=== PATIENT | female | born 1960 | race Caucasian/White ===

== ENCOUNTER 2020-09-11 15:19 | Inpatient (IN) | payer OTHER, SELFPAY ==
[2020-09-11 15:24] VITALS: BP 189/80; PULSE 95; RESP 18; TEMP 36.9; O2SAT 97; BMI 31.6
--- NOTE | 2020-09-11 18:58 | ECG_ITS ---
Test Reason : MED CLERANCES Blood Pressure : / mmHG Vent. Rate : 085 BPM Atrial Rate : 085 BPM P-R Int : 190 ms QRS Dur : 082 ms QT Int : 398 ms P-R-T Axes : 070 044 061 degrees QTc Int : 473 ms Normal sinus rhythm Possible Left atrial enlargement Borderline ECG No previous ECGs available Referred By: Evelyn Ocampo Electronically Signed By:RO FRANK
--- NOTE | 2020-09-11 19:04 | ED_ITS ---
HPI - Psych General Chief Complaint: Psychiatric Symptoms Stated Complaint: crisis Time Seen by Provider: 09/11/20 18:38 Source: patient and family Mode of arrival: ambulatory Limitations: language barrier (tristanian speaking ) History of Present Illness HPI Narrative: 60 yo female with past medical history of NIDDM, HTN, bipolar disorder here with complaints of change in behavior, more labile moods, intermittently medication compliant. Daughter who is at bedside and interpreting tells me increased stressors at home and typically this triggers a bipolar episode for the patient. No substance use. No physical complaints. Related Data Home Medications Medication Instructions Recorded Confirmed divalproex 1 tab PO TID 09/11/20 09/11/20 metoprolol tartrate 50 mg PO BID 09/11/20 09/11/20 valsartan 320 mg PO DAILY 09/11/20 09/11/20 Allergies Allergy/AdvReac Type Severity Reaction Status Date / Time No Known Allergies Allergy Unverified 12/13/19 18:58 [No Known Allergies*] Review of Systems Review of Systems: Yes all other systems are reviewed and are negative Constitutional: Constitutional: Reports no additional constitutional complaints, Denies body ache(s), Denies chills, Denies fever(s), Denies headache(s) and Denies weakness Eyes: Eyes: Reports no additional eye complaints and Denies change in vision ENT: Reports system reviewed and no additional complaints, except as documented, Denies dizziness, Denies headache(s), Denies nasal congestion, Den ies nasal discharge and Denies neck pain Cardiovascular: Cardiovascular: Reports no additional cardiovascular complaints, Denies chest pain, Denies leg edema and Denies dyspnea Respiratory: Respiratory: Reports no additional respiratory complaints, Denies cough and Denies dyspnea Gastrointestinal: Gastrointestinal: Reports no additional gastrointestinal complaints, Denies abdominal pain, Denies diarrhea, Denies nausea and Denies vomiting Genitourinary: Genitourinary: Reports no additional female genitourinary complaints and Denies urinary incontinence Musculoskeletal: Musculoskeletal: Reports no additional musculoskeletal comp laints, Denies back pain, Denies arthralgias, Denies joint swelling, Denies neck pain, Denies numbness and Denies tingling Integumentary/Breasts: Skin/Breast: Reports system reviewed and no additional complaints, except as docu and Denies rash Neurologic: Reports system reviewed and no additional complaints, except as documented, Denies Abnormal speech present, Reports behavioral changes, Denies dizziness, Denies headache(s), Denies numbness, Denies tingling and Denies weakness Psychiatric: Psychiatric: Reports behavioral changes, Denies homicidal ideation and Denies suicidal ideation [facility] Past Medical History Attestation statement: The following information was validated with the patient. Source: old records reviewed and nursing notes reviewed Medical History Bipolar affective disorder, manic delivery delivered Diabetes Hypertension Social History Social History Advance Directives: No Advance Directives Information Provided: Yes Patient : No Physical Exam Vital Signs: Vital Signs: Last Vital Signs Temp 98.4 F 09/11/20 15:24 Pulse 95 09/11/20 15:24 Resp 18 09/11/20 15:24 BP 189/80 H 09/11/20 15:24 Pulse Ox 97 09/11/20 15:24 Body Mass Index 31.6 Const: General: cooperative, healthy appearing, comfortable and no acute distress Orientation/consciousness: patient oriented x3 Limitations: no limitations HENMT: Head: Yes normal to inspection Ears: hearing grossly normal bilaterally General nose exam: Normal external nose present Face and sinus: Yes normal facial exam Mouth: Normal oral and palatal mucosa present Throat: Yes posterior oropharynx normal Eyes: General: appearance normal, both eyes and all related structures Pupils: Equal, round and reactive pupils present Neck: Neck: Yes normal visual inspection Chest: Chest palpation & inspection: normal inspection of the chest Resp: Effort & Inspection: normal respiratory effort Auscultation: clear to auscultation bilaterally Cardio: Rate: regular rate Rhythm: regular rhythm Peripheral pulses: Peripheral pulses 2+ throughout GI: Inspection: Yes normal to inspection Palpation (GI): Soft to palpation and nontender Auscultation: normal bowel sounds Back/Spine/Pelvis: Thoracic/Lumbar Spine: thoracic and lumbar spine normal to inspection Skin: General skin exam: no rashes or lesions noted Neuro: General: patient oriented x3, no focal motor deficits and normal sensation to monofilament Cranial nerves: Yes Equal, round and reactive pupils present Cognition (Neuro): normal cognition Speech: No Abnormal speech present Gait exam (Neuro): Normal gait present Motor exam (neuro): 5 motor strength present throughout Extrem: General: Yes normal to inspection, Yes no pedal edema and Yes no calf tenderness Course Course Course Narrative: 60 yo female here with family with concern for bipolar episode (per family labile moods, aggressive at home, intermittently med compliant, not sleeping) with multiple stressors in life recently. No physical complaints. No concern for acute ingestion or trauma. Will need labs, WHITAKER, EKG, COVID screen, Care team evaluation. Placed in physician observation. MDM - Psych Medical Records Attestation: I reviewed the patient's medical records. Lab Data Attestation: I reviewed the patient's lab results. Result diagrams: 09/11/20 19:20 Labs: Lab Results 09/11/20 09/11/20 09/11/20 Range/Units 18:45 19:20 19:20 WBC 5.6 (4.8-10.8) X10*3/uL RBC 4.64 (4.20-5.50) X10*6/uL Hgb 13.8 (12.0-16.0) g/dl Hct 42.2 (37-47) % MCV 90.9 (80-98) fL MCH 29.7 (27.0-33.0) pg MCHC 32.7 (31.0-35.0) g/dl RDW 12.8 (11.0-16.0) % Plt Count 203 (160-400) X10*3/uL MPV 10.0 (9.4-12.3) fL Immature Gran % (Auto) 0.5 H (0.0-0.4) % Neut % (Auto) 65.6 (45-73) % Lymph % (Auto) 21.6 (20-40) % [place] % (Auto) 8.6 (2-11) % Eos % (Auto) 3.0 (0-4) % Baso % (Auto) 0.7 (0-2) % Lymph # (Auto) 1.2 (1.2-4.9) X10*3/uL [place] # (Auto) 0.5 (0.1-1.2) X10*3/uL Eos # (Auto) 0.2 (0.0-0.4) X10*3/uL Baso # (Auto) 0.0 (0.0-0.2) X10*3/uL Abs Immat Gran (auto) 0.03 (0.00-0.03) X10*3/uL Absolute Neuts (auto) 3.7 (2.0-8.3) X10*3/uL Absolute Nucleated RBC 0.000 (0.0-0.012) X10*3/uL Nucleated RBC % (auto) 0.0 (0.0-0.2) /100WBC Total Bilirubin (0.0-1.0) mg/dL Direct Bilirubin (0.0-0.5) mg/dL AST (5-31) U/L ALT (0-31) U/L Alkaline Phosphatase (39-117) U/L Total Protein (6.5-8.0) g/dL Albumin (3.5-5.0) g/dL Urine Opiates Screen Not Detected (Not Detect) Ur Barbiturates Screen Not Detected (Not Detect) Valproic Acid (50.0-100.0) mcg/mL Ur Phencyclidine Scrn Not Detected (Not Detect) Ur Amphetamines Screen Not Detected (Not Detect) U Benzodiazepines Scrn Not Detected (Not Detect) Urine Cocaine Screen Not Detected (Not Detect) U Marijuana (THC) Screen Not Detected (Not Detect) Ethyl Alcohol < 10 mg/dL COVID-19 (DIGNA) (Negative) COVID-19 Clin Com 09/11/20 09/11/20 09/11/20 Range/Units 19:20 19:20 19:53 WBC (4.8-10.8) X10*3/uL RBC (4.20-5.50) X10*6/uL Hgb (12.0-16.0) g/dl Hct (37-47) % MCV (80-98) fL MCH (27.0-33.0) pg MCHC (31.0-35.0) g/dl RDW (11.0-16.0) % Plt Count (160-400) X10*3/uL MPV (9.4-12.3) fL Immature Gran % (Auto) (0.0-0.4) % Neut % (Auto) (45-73) % Lymph % (Auto) (20-40) % [place] % (Auto) (2-11) % Eos % (Auto) (0-4) % Baso % (Auto) (0-2) % Lymph # (Auto) (1.2-4.9) X10*3/uL [place] # (Auto) (0.1-1.2) X10*3/uL Eos # (Auto) (0.0-0.4) X10*3/uL Baso # (Auto) (0.0-0.2) X10*3/uL Abs Immat Gran (auto) (0.00-0.03) X10*3/uL Absolute Neuts (auto) (2.0-8.3) X10*3/uL Absolute Nucleated RBC (0.0-0.012) X10*3/uL Nucleated RBC % (auto) (0.0-0.2) /100WBC Total Bilirubin 0.7 (0.0-1.0) mg/dL Direct Bilirubin 0.2 (0.0-0.5) mg/dL AST 17 (5-31) U/L ALT 23 (0-31) U/L Alkaline Phosphatase 72 (39-117) U/L Total Protein 7.3 (6.5-8.0) g/dL Albumin 4.4 (3.5-5.0) g/dL Urine Opiates Screen (Not Detect) Ur Barbiturates Screen (Not Detect) Valproic Acid 73.4 (50.0-100.0) mcg/mL Ur Phencyclidine Scrn (Not Detect) Ur Amphetamines Screen (Not Detect) U Benzodiazepines Scrn (Not Detect) Urine Cocaine Screen (Not Detect) U Marijuana (THC) Screen (Not Detect) Ethyl Alcohol mg/dL COVID-19 (DIGNA) Negative (Negative) COVID-19 Clin Com See Note ECG Data Attestation: I personally reviewed and interpreted this ECG as follows: ECG interpretation date: 09/11/20 ECG interpretation time: 19:33 Interpretation: nsr with rate 85, normal pr, normal qrs, normal qtc Discharge Plan Discharge Clinical Impression: Bipolar disorder Prescriptions: No Action divalproex 500 mg tablet extended release 24 hr 1 tab PO TID RF: 0 valsartan 320 mg Tablet 320 mg PO DAILY RF: 0 metoprolol tartrate 50 mg Tablet 50 mg PO BID RF: 0
[2020-09-11 19:14] LABS: Amphetamine Screen Urine Not Detected (Not Detect); Barbiturates, Urine Not Detected (Not Detect); Benzodiazepines Screen Urine Not Detected (Not Detect); Cannabinoid Screen Urine Not Detected (Not Detect); Cocaine Screen Urine Not Detected (Not Detect); Opiate Screen Urine Not Detected (Not Detect); Phencyclidine Screen Urine Not Detected (Not Detect)
[2020-09-11 19:27] LABS: MANUAL DIFF FLAG NO
--- NOTE | 2020-09-11 19:29 | HE.PHANOTE ---
Pharmacy Consult ? Medication Reconciliation Pharmacy has completed the medication reconciliation and there were no significant medication issues requiring provider attention. Medication info via nurse who spoke with Daughter Nancy Ophelia CabreraD
[2020-09-11 19:30] LABS: Basophils Percent Auto 0.7 % (0-2); Eosinophils Absolute Auto 0.2 X10*3/uL (0.0-0.4); Hematocrit 42.2 % (37-47); Hemoglobin 13.8 g/dl (12.0-16.0); Imm Gran Abs Auto 0.03 X10*3/uL (0.00-0.03); Imm Gran Pct Auto 0.5 % (0.0-0.4); Lymphocytes Absolute Auto 1.2 X10*3/uL (1.2-4.9); Lymphocytes Percent Auto 21.6 % (20-40); Mean Corpuscular HGB Conc 32.7 g/dl (31.0-35.0); Mean Corpuscular Hemoglobin 29.7 pg (27.0-33.0); Mean Corpuscular Volume 90.9 fL (80-98); Monocytes Absolute Auto 0.5 X10*3/uL (0.1-1.2); Monocytes Percent Auto 8.6 % (2-11); Neutrophils Absolute Auto 3.7 X10*3/uL (2.0-8.3); Neutrophils Percent Auto 65.6 % (45-73); Platelet Count 203 X10*3/uL (160-400); Red Blood Count 4.64 X10*6/uL (4.20-5.50); Red Cell Distribution Width 12.8 % (11.0-16.0); White Blood Count 5.6 X10*3/uL (4.8-10.8)
--- NOTE | 2020-09-11 19:51 | PC.NURSE ---
pt seen by the care team rob. pt was calm and cooperative
[2020-09-11 19:57] LABS: Alanine Aminotransferase 23 U/L (0-31); Albumin Level 4.4 g/dL (3.5-5.0); Alkaline Phosphatase 72 U/L (39-117); Aspartate Amino Transferase 17 U/L (5-31); Bilirubin Direct 0.2 mg/dL (0.0-0.5); Bilirubin Total 0.7 mg/dL (0.0-1.0); Total Protein 7.3 g/dL (6.5-8.0)
[2020-09-11 20:04] LABS: Ethanol < 10 mg/dL
[2020-09-11 20:08] LABS: COVID-19 Test Negative (Negative)
[2020-09-11 20:35] LABS: Valproate 73.4 mcg/mL (50.0-100.0)
[2020-09-12 00:17] VITALS: BP 164/72; PULSE 82; RESP 18; TEMP 36.5; O2SAT 97
--- NOTE | 2020-09-12 04:42 | PC.NURSE ---
pt oob to bathroom with steady gait. pt tearful.
[2020-09-12 06:30] LABS: Glucose, Whole Blood 144 mg/dL (60-115)
--- NOTE | 2020-09-12 07:03 | PC.NURSE ---
patient appears at rest at present with even unlabored breaths, patient appears in no distress
[2020-09-12 10:27] VITALS: BP 142/86; PULSE 105; RESP 16; TEMP 36.6; O2SAT 98
[2020-09-12 12:02] VITALS: BP 140/95; PULSE 105
[2020-09-12 12:06] VITALS: BP 140/95; PULSE 105
[2020-09-12 14:02] LABS: Glucose, Whole Blood 126 mg/dL (60-115)
--- NOTE | 2020-09-12 16:12 | MHC.CARE ---
Pts bed-search is exhausted for today. Plan for psychiatry to follow up with Pt tomorrow.
[2020-09-12 18:59] VITALS: BP 162/92; PULSE 97; RESP 20; TEMP 37.2; O2SAT 95
[2020-09-12 19:02] VITALS: BP 162/92; PULSE 97
[2020-09-12] MEDS: Metoprolol Tartrate 50 MG TABLET PO (19:02)
[2020-09-12] MEDS: Divalproex Sodium ER 500 MG TAB.ER.24H PO (19:02)
--- NOTE | 2020-09-12 19:06 | PC.NURSE ---
Patient calm and quiet, lying in her bed, per report patient had been refusing medication, patient educated of the process and possible outcome for not taking medication, patient reported she was always compliant with her medication fact aligns with her serum Depakote level, patient agreed to take her medication, 2100 hours medication administered at 1905, provider notified/approved, no distress reported, will continue to monitor.
[2020-09-13 06:44] VITALS: BP 115/73; PULSE 97; RESP 18; TEMP 36.7; O2SAT 97
--- NOTE | 2020-09-13 07:11 | PC.NURSE ---
patient appears to remain at rest, respirations are even and unlabored, patient appears in no distress.
--- NOTE | 2020-09-13 08:29 | MHC.CARE ---
CARE Team received a call from Pts daughter, Nancy who presents as frustrated. CARE Team provided education regarding psychiatric bed searches and placements.
[2020-09-13 08:59] VITALS: BP 126/69; PULSE 101; RESP 20; TEMP 36.6; O2SAT 99
[2020-09-13 09:04] VITALS: BP 126/69; PULSE 101
[2020-09-13] MEDS: Metoprolol Tartrate 50 MG TABLET PO ×2 (09:04→20:34)
[2020-09-13] MEDS: Valsartan 320 MG TABLET PO (09:04)
[2020-09-13] MEDS: Divalproex Sodium ER 500 MG TAB.ER.24H PO ×3 (09:05→20:34)
--- NOTE | 2020-09-13 12:22 | P.CNPS_ITS ---
History of Present Illness Date of Service: 09/13/20 Chief Complaint: crisis Reason for Consult: Consult to psychiatry- patient wanting to go home, thinks she is here for a blood test family feel they can not care for her, and want her hospitalized Discussed with referring provider: No (discussed with care team, nursing in pod) Sources of Information: patient interviewed Additional Sources of Information: using translation of voice technical document writer thru electron interface HPI Narrative: Pt reports she was sleeping too much so stopped taking seroquel - unclear if this was in conjunction with her psychiatrist she had appointment with the psychiatrist ? Dr Rodriguez the other day and she told her to come get a blood test which is what she thought she was here for - When asked about her wandering from home, says she was needing to take a walk - Pt had been very non specific about what she was doing , did not tell family that she was leaving, which has made them worry. Pt reports taking her medication regularly and as prescribed Family, daughter, reports she has not consistently taken them and has been more vague and disorganized Past Psychiatric History: hospitalization 2015 here - by hx sounded more d ecompensated than she is currently Medical Evaluation Reviewed: Yes ekg borderline qtc 473 lfts ok and valproic acid lvl 73..... Personal & Social History: family reports inc stressors Pt worried about mother in [place] while sister is away on holiday- wants to be there with her mother at this time Review of Systems Review of Systems Patient melissa s/e of medications- no gi problems, no brusing, no palpiations, headaches [facility] Medical History Bipolar affective disorder, manic delivery delivered Diabetes Hypertension Diagnostics Vital Signs (24Hr): Vital Signs - 24 hr 09/12/20 18:59 09/12/20 19:02 09/13/20 06:44 Temperature 99.0 F 98.1 F Pulse Rate 97 97 97 Respiratory Rate 20 18 Blood Pressure 162/92 H 162/92 H 115/73 Pulse Oximetry 95 97 09/13/20 08:59 09/13/20 09:04 Temperature 97.8 F Pulse Rate 101 H 101 H Respiratory Rate 20 Blood Pressure 126/69 126/69 Pulse Oximetry 99 Body Mass Index 31.6 Labs Results: 09/11/20 19:20 Labs: Laboratory Results - last 48 hr 09/11/20 09/11/20 09/11/20 18:45 19:20 19:20 WBC 5.6 RBC 4.64 Hgb 13.8 Hct 42.2 MCV 90.9 MCH 29.7 MCHC 32.7 RDW 12.8 Plt Count 203 MPV 10.0 Immature Gran % (Auto) 0.5 H Neut % (Auto) 65.6 Lymph % (Auto) 21.6 [place] % (Auto) 8.6 Eos % (Auto) 3.0 Baso % (Auto) 0.7 Lymph # (Auto) 1.2 [place] # (Auto) 0.5 Eos # (Auto) 0.2 Baso # (Auto) 0.0 Abs Immat Gran (auto) 0.03 Absolute Neuts (auto) 3.7 Absolute Nucleated RBC 0.000 Nucleated RBC % (auto) 0.0 POC Glucose Total Bilirubin Direct Bilirubin AST ALT Alkaline Phosphatase Total Protein Albumin Urine Opiates Screen Not Detected Ur Barbiturates Screen Not Detected Valproic Acid Ur Phencyclidine Scrn Not Detected Ur Amphetamines Screen Not Detected U Benzodiazepines Scrn Not Detected Urine Cocaine Screen Not Detected U Marijuana (THC) Screen Not Detected Ethyl Alcohol < 10 COVID-19 (DIGNA) COVID-[employer] 09/11/20 09/11/20 09/11/20 19:20 19:20 19:53 WBC RBC Hgb Hct MCV MCH MCHC RDW Plt Count MPV Immature Gran % (Auto) Neut % (Auto) Lymph % (Auto) [place] % (Auto) Eos % (Auto) Baso % (Auto) Lymph # (Auto) [place] # (Auto) Eos # (Auto) Baso # (Auto) Abs Immat Gran (auto) Absolute Neuts (auto) Absolute Nucleated RBC Nucleated RBC % (auto) POC Glucose Total Bilirubin 0.7 Direct Bilirubin 0.2 AST 17 ALT 23 Alkaline Phosphatase 72 Total Protein 7.3 Albumin 4.4 Urine Opiates Screen Ur Barbiturates Screen Valproic Acid 73.4 Ur Phencyclidine Scrn Ur Amphetamines Screen U Benzodiazepines Scrn Urine Cocaine Screen U Marijuana (THC) Screen Ethyl Alcohol COVID-19 (DIGNA) Negative COVID-19 BRAIN Com See Note 09/12/20 09/12/20 06:22 13:59 WBC RBC Hgb Hct MCV MCH MCHC RDW Plt Count MPV Immature Gran % (Auto) Neut % (Auto) Lymph % (Auto) [place] % (Auto) Eos % (Auto) Baso % (Auto) Lymph # (Auto) [place] # (Auto) Eos # (Auto) Baso # (Auto) Abs Immat Gran (auto) Absolute Neuts (auto) Absolute Nucleated RBC Nucleated RBC % (auto) POC Glucose 144 H 126 H Total Bilirubin Direct Bilirubin AST ALT Alkaline Phosphatase Total Protein Albumin Urine Opiates Screen Ur Barbiturates Screen Valproic Acid Ur Phencyclidine Scrn Ur Amphetamines Screen U Benzodiazepines Scrn Urine Cocaine Screen U Marijuana (THC) Screen Ethyl Alcohol COVID-19 (DIGNA) COVID-19 Clin Com Mental Status Exam Mental Status Exam Narrative: Dressed in Mario, seated on bed, ok eye contact Patient Appearance: Appropriate Patient Orientation: Person, Place, Time and Situation Level of Consciousness: Awake and Follows Commands Patient Behavior: Cooperative and Passive Mood Description: Calm and Flat Affect Description: Calm Ability to Follow Directions: Fair Speech Pattern: Clear Hallucinations: None Delusions: Not Present Thought Process: Intact Thought Content: positive for Intact and positive for Goal Oriented Depressive Symptoms: Difficulty Sleeping (by family report- nursing report she slept last pm) Judgement: Poor (doesn't know why she is here, identfies mental health problem as sleeping problem ) Medications Medications Current Medications Generic Name Dose Route Start Last Admin Trade Name Freq PRN Reason Stop Dose Admin Divalproex Sodium 500 mg 09/12/20 09:00 09/13/20 09:05 Divalproex Sodium Er 500 Mg Tab.Er.24h PO 500 mg TID SMILEY Administration Metoprolol Tartrate 50 mg 09/12/20 09:00 09/13/20 09:04 Metoprolol Tartrate 50 Mg Tablet PO 50 mg BID SMILEY Administration Protocol Pharmacy Consult 1 each 09/11/20 18:59 Consult Rx Perform Med Rec MISCELLANE ONCE PRN Consult order Valsartan 320 mg 09/12/20 09:00 09/13/20 09:04 Valsartan 320 Mg Tablet PO 320 mg DAILY SMILEY Administration Protocol Allergies Allergies Allergy/AdvReac Type Severity Reaction Status Date / Time No Known Allergies Allergy Unverified 12/13/19 18:58 [No Known Allergies*] Assessment & Plan Assessment & Plan (1) Bipolar disorder: Status: Acute Code(s): F31.9 - Bipolar disorder, unspecified Recommendations: no toni seen here- though vague speech- evasive- easily engaged no behavioral issues noted I will restart quetiapine 100mg qhs mr x1 may need to recheck eqkg qtc Greater than 50% of the session was spent on counseling and/or coordination of care
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
--- NOTE | 2020-09-13 17:31 | PC.NURSE ---
patient appears to be crying in room post attempt to call family, patient had prior expressed to t/w the fact she believed she would dc today.t/w attempted to console patient with a box of tissues and offered facecloth. appears to be language barrier.
[2020-09-13 19:04] VITALS: BP 151/85; PULSE 87; RESP 18; TEMP 36.2; O2SAT 98
[2020-09-13 20:34] VITALS: BP 151/85; PULSE 87
[2020-09-13] MEDS: QUEtiapine Fumarate 100 MG TABLET PO (20:35)
--- NOTE | 2020-09-13 21:29 | MHC.CARE ---
CARE team contacted by pt's daughter, Nancy, who expressed concerns re: her mother's care- not having been admitted to a facility for treatment yet, and feeling that there were no outcomes from the pt being seen by the mill control operator psychiatrist. This medical technical writer explained that placement on weekends can be challenging due to lack of appropriate bed availability and more specifically that pt's health insurance ([employer]) creates a barrier to pt being admitted to on of [facility] inpt psych facilities. It was clarified that the pt was seen by the mill control operator psychiatrist and that she had been restarted on Seroquel 100mg QHS. It was put frankly by this medical technical writer that pt's mother will more than likely be in the ED through Tuesday, and on Tuesday if the pt still hasn't been accepted for admission that a conversation will take place re: negotiating with insurance company for pt to be admitted for treatment at [facility]. This medical technical writer reiterated that there are no guarantees that pt will be admitted here at the hospital, but it will be part of the discussion if pt continues to be delayed. Nancy conveyed understanding of this during the phone call.
[2020-09-14 06:13] VITALS: BP 124/68; PULSE 68; RESP 18; TEMP 36.8; O2SAT 96
[2020-09-14 09:46] VITALS: BP 128/68; PULSE 78; RESP 16; TEMP 36.3; O2SAT 96
[2020-09-14 10:12] VITALS: BP 128/68; PULSE 75
[2020-09-14] MEDS: Valsartan 320 MG TABLET PO (10:12)
[2020-09-14] MEDS: Divalproex Sodium ER 500 MG TAB.ER.24H PO ×2 (10:12→15:21)
[2020-09-14] MEDS: Metoprolol Tartrate 50 MG TABLET PO (10:12)
--- NOTE | 2020-09-14 11:02 | PC.NURSE ---
spent the morning in her room in bed, medicated as ordered, very slow to get up and take meds, did not eat breakfast, drank some water, declined to order anything for lunch
--- NOTE | 2020-09-14 15:22 | PC.NURSE ---
PT IN NAD AT THIS TIME. DEPAKOTE ADMINISTERED WITH NO ISSUE. PT DESCRIBED NOT BEING HAPPY WITH NEW SEROQUEL RX NO GOOD, TODAY IS NO GOOD , PT UNABLE TO ANSWER QUESTIONS FOR FURTHER INQUIRY. WILL ATTEMPT A DISCUSSION ABOUT MEDICATION WITH [facility] LATER THIS AFTERNOON, PT REQUESTING TO BE LEFT ALONE TO WRITE AT THIS TIME.
--- NOTE | 2020-09-14 16:03 | PC.NURSE ---
PREVIOUS CHART NOTE WRITTEN BY THIS RN. MD TORRES IN POD FOR RE-EVALUATION.
[2020-09-14 17:33] VITALS: BP 108/57; PULSE 84; TEMP 36.4; O2SAT 98
--- NOTE | 2020-09-14 18:36 | PC.NURSE ---
Patient in her room, sitting in her chair calm and quiet, engaged in writing, denied distress, will continue to monitor.
[2020-09-15 00:40] VITALS: BP 146/79; PULSE 83; RESP 16; TEMP 36.9; O2SAT 95
--- NOTE | 2020-09-15 07:08 | PC.NURSE ---
patient appears in no distress, received report from prior nurse, respiration is even and unlabored
[2020-09-15 11:12] VITALS: BP 144/85; PULSE 115; RESP 17; TEMP 36.8; O2SAT 97
[2020-09-15 14:05] LABS: Valproate 87.8 mcg/mL (50.0-100.0)
[2020-09-15] MEDS: Divalproex Sodium ER 500 MG TAB.ER.24H PO ×2 (15:04→21:29)
--- NOTE | 2020-09-15 16:53 | PC.NURSE ---
Report given to HERNANDEZ Gomez on M5, pt going into room 509-1.
[2020-09-15 21:29] VITALS: BP 145/76; PULSE 103
[2020-09-15] MEDS: Metoprolol Tartrate 50 MG TABLET PO (21:29)
[2020-09-15 21:31] VITALS: BP 145/76; PULSE 103; RESP 14; TEMP 36.6; O2SAT 95
[2020-09-16 00:48] VITALS: BP 158/90; PULSE 81; RESP 16; TEMP 36.6; O2SAT 98
--- NOTE | 2020-09-16 03:29 | PC.ADMIT ---
Pt is a 60yo female Stateless speaking (science interpreter needed) who presents with Bipolar 1 d/o on a 12b, 15-min safety checks. Pt A+O(3). Interview was done with the help of the Larry science interpreter. Pt stated many times that she does not understand why she is here and that she does not want to be here. Pt calm and cooperative but easily agitated about being in psych hospital. Pt lucid at first but then became disorganized and tangential. Pt seemed have been pre occupied with other thoughts--one time answering her needed psychiatric help to an unrelated question. Pt states she takes her Depakote. Depakote level 73.4 on 09/11/20. Pt states she does not take her prescribed sleep meds and prefers vitamins instead. Pt went to bed without sleep meds, got up once for an extra blanket and appears to be sleeping.
[2020-09-16 06:00] VITALS: BP 147/78; PULSE 86; RESP 16; TEMP 36.3; O2SAT 97
[2020-09-16 06:29] LABS: Glucose, Whole Blood 91 mg/dL (60-115)
[2020-09-16 08:37] VITALS: BP 139/81; PULSE 99
[2020-09-16] MEDS: Divalproex Sodium ER 500 MG TAB.ER.24H PO ×3 (08:37→20:07)
[2020-09-16] MEDS: Metoprolol Tartrate 50 MG TABLET PO ×2 (08:37→20:07)
[2020-09-16 09:56] LABS: Estimated Average Glucose 180 mg/dL; Hemoglobin A1c % 7.9 %
[2020-09-16 10:12] LABS: Alanine Aminotransferase 40 U/L (0-31); Albumin Level 4.2 g/dL (3.5-5.0); Alkaline Phosphatase 71 U/L (39-117); Anion Gap 15 (12-20); Aspartate Amino Transferase 29 U/L (5-31); Blood Urea Nitrogen 20 mg/dL (9-16); Calcium 9.3 mg/dL (8.4-10.2); Carbon Dioxide 28 mmol/L (22-29); Chloride 103 mmol/L (96-108); Cholesterol 266 mg/dL; Creatinine Clr Calc Pharmacy 88.6; Estimated Glomerular Filt Rate > 60; Glucose Fasting 86 mg/dL (60-99); HDL Cholesterol 25 mg/dL; LDL Cholesterol Calculated 195 mg/dl; Potassium 4.9 mmol/L (3.3-5.1); Sodium 141 mmol/L (135-145); Total Protein 7.1 g/dL (6.5-8.0); Triglycerides 234 mg/dL
[2020-09-16 11:14] VITALS: BP 135/70; PULSE 86
[2020-09-16] MEDS: Valsartan 320 MG TABLET PO (11:14)
[2020-09-16 11:57] LABS: Folate 17.8 ng/mL (> or = 4.0); Vitamin B12 896 pg/mL (200-900)
--- NOTE | 2020-09-16 13:28 | P.HPPS_ITS ---
HPI Chief Complaint: Psychosis Sources of Information: patient interviewed, chart reviewed and crisis/core team assessment reviewed Additional Sources of Information: Will schedule family meeting due to conflicting views from pt/family HPI Subjective Notes: Section 12B Healthcare Proxy: No Guardianship: No Medical Problems Affecting Mental Status: No Narrative: 60 yo female, hx of bipolar type I, Taiwanese speaking with some Japanese, admitted after ER admit for a few days. Pt has not been compliant with medications and exhibiting symptoms which has family worried, including impulsive spending,poor sleep, irritability and agitation, short-tempered, leaving for periods of time with whereabouts unknown. Team has connected with family and OP team who all agree pt needs in pt LOC. Met with pt and her nursing team on M5. She is not interested in taking antipsychotic medications and presents without sx of lability or overt psychosis. (Computerized interpretor was utilized). We will need to schedule a family meeting to begin to sort through this conflict. Past Psychiatric History: hospitalization 2015 here - by hx sounded more decompensated than she is currently. 3-4 In pt hospitalizations. OP: Dr. Hay of [place]. Medical Evaluation Reviewed: Yes [facility] Medical History (Updated 09/17/20 @ 18:38 by Nevaeh Hill, SERAFIN) Bipolar affective disorder, manic Bipolar I disorder delivery delivered Diabetes Hypertension Family History: Denies to CARE Team Social History: Disabled. . Seven children. Grandchildren. Lives with and two of the children. Substance History: None known Trauma History: Yes. Diagnostics Vital Signs (24Hr): Vital Signs - 24 hr 09/15/20 21:29 09/15/20 21:31 09/16/20 00:48 Temperature 97.8 F 97.8 F Pulse Rate 103 H 103 H 81 Respiratory Rate 14 16 Blood Pressure 145/76 H 145/76 H 158/90 H Pulse Oximetry 95 98 09/16/20 06:00 09/16/20 08:37 09/16/20 11:14 Temperature 97.4 F Pulse Rate 86 99 86 Respiratory Rate 16 Blood Pressure 147/78 H 139/81 135/70 Pulse Oximetry 97 Body Mass Index 31.6 Labs Results: 09/11/20 19:20 09/16/20 09:08 Labs: Laboratory Results - last 48 hr 09/15/20 09/16/20 09/16/20 13:17 06:24 09:08 Sodium 141 Potassium 4.9 Chloride 103 Carbon Dioxide 28 Anion Gap 15 BUN 20 H Creatinine 0.75 Estim Creat Clear Calc 88.6 Estimated GFR > 60 POC Glucose 91 Fasting Glucose 86 Estimat Average Glucose Hemoglobin A1c % Calcium 9.3 Total Bilirubin 1.0 AST 29 D ALT 40 H Alkaline Phosphatase 71 Total Protein 7.1 Albumin 4.2 Triglycerides 234 Cholesterol 266 LDL Cholesterol, Calc 195 HDL Cholesterol 25 Vitamin B12 Folate TSH 1.80 Valproic Acid 87.8 09/16/20 09/16/20 09:08 09:08 Sodium Potassium Chloride Carbon Dioxide Anion Gap BUN Creatinine Estim Creat Clear Calc Estimated GFR POC Glucose Fasting Glucose Estimat Average Glucose 180 Hemoglobin A1c % 7.9 Calcium Total Bilirubin AST ALT Alkaline Phosphatase Total Protein Albumin Triglycerides Cholesterol LDL Cholesterol, Calc HDL Cholesterol Vitamin B12 896 Folate 17.8 TSH Valproic Acid Meds/Allergies Meds Home Medications Acetaminophen (Acetaminophen 325 Mg Tablet) 650 mg PO Q6H PRN PRN Reason: Headache/Pain Mild Scale (1-3) Al Hydroxide/Mg Hydroxide (Magnesium Hydrox/Alum Hydrox 30 Ml Oral.Susp) 30 ml PO Q6H PRN PRN Reason: Heartburn/Nausea Divalproex Sodium (Divalproex Sodium Er 500 Mg Tab.Er.24h) 500 mg PO TID [facility] Last Admin: 09/17/20 15:04 Dose: 500 mg Documented by: Hydroxyzine HCl (Hydroxyzine Hcl 25 Mg Tablet) 50 mg PO Q6H PRN PRN Reason: Anxiety Magnesium Hydroxide (Milk Of Magnesia 30 Ml Oral.Susp) 30 ml PO DAILY PRN PRN Reason: Constipation Metoprolol Tartrate (Metoprolol Tartrate 50 Mg Tablet) 50 mg PO BID [facility]; Protocol Last Admin: 09/17/20 08:21 Dose: 50 mg Documented by: Pharmacy Consult (Consult Rx Perform Med Rec) 1 each MISCELLANE ONCE PRN PRN Reason: Consult order Quetiapine Fumarate (Quetiapine Fumarate 100 Mg Tablet) 100 mg PO BEDTIME MRX1 [facility] Last Admin: 09/16/20 23:28 Dose: Not Given Documented by: Trazodone HCl (Trazodone Hcl 50 Mg Tablet) 50 mg PO BEDTIME PRN PRN Reason: Insomnia Valsartan (Valsartan 320 Mg Tablet) 320 mg PO DAILY [facility]; Protocol Last Admin: 09/17/20 08:21 Dose: 320 mg Documented by: Allergies Allergies Allergy/AdvReac Type Severity Reaction Status Date / Time No Known Allergies Allergy Unverified 12/13/19 18:58 [No Known Allergies*] Mental Status Exam Mental Status Exam Patient Appearance: Appropriate Patient Orientation: Person, Place and Situation Level of Consciousness: Alert Patient Behavior: Appropriate, Guarded, Talkative, Suspicious and Good Eye Contact Mood Description: Constricted Affect Description: Constricted Patient Cognition Impaired: No Ability to Follow Directions: Good Speech Pattern: Appropriate and Spontaneous Speech Memory Description: Intact Hallucinations: None Delusions: Not Present Thought Process: Goal Oriented Thought Content: positive for Goal Oriented Depressive Symptoms: Insomnia, Diff. Making Decisions, Increased Irritability and Difficulty Sleeping Judgement: Fair Assessment & Plan Assessment & Plan (1) Bipolar I disorder: Status: Acute Code(s): F31.9 - Bipolar disorder, unspecified Assessment and Plan: 60 yo female, history of Bipolar I Disorder [facility] Family reports seeing sx of decompensation including lability, insomnia, refusal of medication (Seroquel specifically-pt is taking Depakote and has a therapeutic level), excessive spending of money and leaving the home without family knowledge of where she is going. Pt has spent a few days in the ER. Today, she met with the team, was calm, answered questions and did not appear with sx of psychosis. I saw her again this evening and she is able to communicate in some Japanese and she reports her family is in error regarding their concerns. We will schedule a family meeting to attempt to clarify the concerns, symptoms and attempt to offer a replacement for Seroquel if needed along with medical evaluation. Informed Consent: understands and further education needed Reason for continued inpatient stay Substantial Risk for: harm to self, inability to function and rapid decompensation
[2020-09-16 20:05] VITALS: BP 130/59; PULSE 82; TEMP 36.1
[2020-09-16 20:07] VITALS: BP 107/57; PULSE 82
[2020-09-17 06:00] VITALS: BP 111/68; PULSE 84; TEMP 36; O2SAT 98
[2020-09-17 08:21] VITALS: BP 123/74; PULSE 93
[2020-09-17] MEDS: Valsartan 320 MG TABLET PO (08:21)
[2020-09-17] MEDS: Metoprolol Tartrate 50 MG TABLET PO ×2 (08:21→20:28)
[2020-09-17] MEDS: Divalproex Sodium ER 500 MG TAB.ER.24H PO ×3 (08:21→20:29)
--- NOTE | 2020-09-17 12:06 | HO.PSYCHPN ---
Subjective Subjective Date of Service: 09/17/20 Reason For Visit: Psychosis Subjective Notes: Section 12B Interim History: Pt seen with interpreter translator via ipad. Pt reports that she has been seeing psychiatrist in community mostly for sleep. When discussing reasons for this hospitalization, pt states she is here again mostly for sleep. She denies concerns brought up by family including overspending, decrease need for sleep, increase energy and irritability. Pt denies SI/HI. She reports sleeping better last night. She continues to decline seroquel. It was explained to pt that this medication is not for sleep but mood. It was offered to pt other options of antipsychotics with less sedation if that was a concern she had, but pt declined stating that her mood is fine. Pt has been decreasing oral intake due to anabaptist believes, which family report are not her usual behavior. Pt in agreement to take depakote only. Pt mostly in room, minimally interactive with peers or staff mostly because of language barriers. No behavioral concerns. Medication Compliance: Intermittent Side effects from medications: No Attending Groups: No Review of Systems Review of Systems Yes all other systems are reviewed and are negative Constitutional: Reports no additional constitutional complaints, Denies body ache(s), Denies chills, Denies fever(s), Denies headache(s) and Denies weakness Eyes: Reports no additional eye complaints and Denies change in vision Reports system reviewed and no additional complaints, except as documented, Denies dizziness, Denies headache(s), Denies nasal congestion, Denies nasal discharge and Denies neck pain Cardiovascular: Reports no additional cardiovascular complaints, Denies chest pain, Denies leg edema and Denies dyspnea Respiratory: Reports no additional respiratory complaints, Denies cough and Denies dyspnea Gastrointestinal: Reports no additional gastrointestinal complaints, Denies abdominal pain, Denies diarrhea, Denies nausea and Denies vomiting Musculoskeletal: Reports no additional musculoskeletal complaints, Denies back pain, Denies arthralgias, Denies joint swelling, Denies neck pain, Denies numbness and Denies tingling Skin/Breast: Reports system reviewed and no additional complaints, except as docu and Denies rash Reports system reviewed and no additional complaints, except as documented, Denies Abnormal speech present, Reports behavioral changes, Denies dizziness, Denies headache(s), Denies numbness, Denies tingling and Denies weakness Psychiatric: Reports behavioral changes, Denies homicidal ideation and Denies suicidal ideation Mental Status Exam Mental Status Exam Narrative: MSE Appearance: casually groomed, poor hygiene, malodorous, in NAD Behavior: calm, fairly cooperative Speech: assessed through interpretation of interpreter translator- clear, normal rate, spontaneous Psychomotor: no agitation or retardation noted TP: mostly linear, but at times tangential TC: anabaptist concerns as to why she does not want or need medications Mood: fine Affect: expansive at times, somewhat suspicious as well. VH/AH: pt denies but unclear if internally preoccupied Delusions: anabaptist preoccupation noted, which family have reported not her usual Insight/judgment: impaired x 2. Memory/cog: alert ,oriented x 3. impaired secondary to psychiatric symptoms. Diagnostics Vital Signs (24Hr): Vital Signs - 24 hr 09/16/20 20:05 09/16/20 20:07 09/17/20 06:00 Temperature 97.0 F 96.8 F Pulse Rate 82 82 84 Blood Pressure 130/59 L 107/57 L 111/68 Pulse Oximetry 98 09/17/20 08:21 Temperature Pulse Rate 93 Blood Pressure 123/74 Pulse Oximetry Body Mass Index 31.6 Labs Results: 09/11/20 19:20 09/16/20 09:08 Labs: Laboratory Results - last 48 hr 09/15/20 09/16/20 09/16/20 13:17 06:24 09:08 Sodium 141 Potassium 4.9 Chloride 103 Carbon Dioxide 28 Anion Gap 15 BUN 20 H Creatinine 0.75 Estim Creat Clear Calc 88.6 Estimated GFR > 60 POC Glucose 91 Fasting Glucose 86 Estimat Average Glucose Hemoglobin A1c % Calcium 9.3 Total Bilirubin 1.0 AST 29 D ALT 40 H Alkaline Phosphatase 71 Total Protein 7.1 Albumin 4.2 Triglycerides 234 Cholesterol 266 LDL Cholesterol, Calc 195 HDL Cholesterol 25 Vitamin B12 Folate TSH 1.80 Valproic Acid 87.8 09/16/20 09/16/20 09:08 09:08 Sodium Potassium Chloride Carbon Dioxide Anion Gap BUN Creatinine Estim Creat Clear Calc Estimated GFR POC Glucose Fasting Glucose Estimat Average Glucose 180 Hemoglobin A1c % 7.9 Calcium Total Bilirubin AST ALT Alkaline Phosphatase Total Protein Albumin Triglycerides Cholesterol LDL Cholesterol, Calc HDL Cholesterol Vitamin B12 896 Folate 17.8 TSH Valproic Acid Medications Medications Current Medications Generic Name Dose Route Start Last Admin Trade Name Freq PRN Reason Stop Dose Admin Acetaminophen 650 mg 09/15/20 22:48 Acetaminophen 325 Mg Tablet PO Q6H PRN Headache/Pain Mild Scale (1-3) Al Hydroxide/Mg Hydroxide 30 ml 09/15/20 22:48 Magnesium Hydrox/Alum Hydrox 30 Ml Oral.Susp PO Q6H PRN Heartburn/Nausea Divalproex Sodium 500 mg 09/12/20 09:00 09/17/20 08:21 Divalproex Sodium Er 500 Mg Tab.Er.24h PO 500 mg TID [facility] Administration Hydroxyzine HCl 50 mg 09/15/20 22:48 Hydroxyzine Hcl 25 Mg Tablet PO Q6H PRN Anxiety Magnesium Hydroxide 30 ml 09/15/20 22:48 Milk Of Magnesia 30 Ml Oral.Susp PO DAILY PRN Constipation Metoprolol Tartrate 50 mg 09/12/20 09:00 09/17/20 08:21 Metoprolol Tartrate 50 Mg Tablet PO 50 mg BID [facility] Administration Protocol Pharmacy Consult 1 each 09/11/20 18:59 Consult Rx Perform Med Rec MISCELLANE ONCE PRN Consult order Quetiapine Fumarate 100 mg 09/13/20 21:00 09/16/20 23:28 Quetiapine Fumarate 100 Mg Tablet PO Not Given BEDTIME MRX1 [facility] Trazodone HCl 50 mg 09/15/20 22:48 Trazodone Hcl 50 Mg Tablet PO BEDTIME PRN Insomnia Valsartan 320 mg 09/12/20 09:00 09/17/20 08:21 Valsartan 320 Mg Tablet PO 320 mg DAILY [facility] Administration Protocol Allergies Allergies Allergy/AdvReac Type Severity Reaction Status Date / Time No Known Allergies Allergy Unverified 12/13/19 18:58 [No Known Allergies*] Assessment & Plan Assessment & Plan (1) Bipolar disorder: Status: Inactive Code(s): F31.9 - Bipolar disorder, unspecified Assessment and Plan: Pt fairly stable, some anabaptist preoccupation and contained in unit but family reports increased overspending, religiously preoccupied affecting her ability to function. 1. continue depakote 2. continue seroquel, although pt declining at this time. Greater than 50% of the session was spent on counseling and/or coordination of care Reason for contiued inpatient stay Substantial Risk for: inability to function
[2020-09-17 12:26] LABS: Glucose, Whole Blood 182 mg/dL (60-115)
[2020-09-17 18:00] VITALS: BP 166/80; PULSE 103; RESP 16; TEMP 36.6
[2020-09-17 19:06] VITALS: BP 144/79; PULSE 89
--- NOTE | 2020-09-17 20:20 | PC.NURSE ---
This nurse spoke with patient's daughter Lola per patient's verbal request. Lola inquiring about medication. Daughter states that mother will not take Seroquel due to sedating effects that last into the next day. Daughter thinks a family meeting with Doctor would be the best option so that everyone is on the same page. Will pass on in shift report. Patient continues to be compliant with Depakote.
[2020-09-17 20:28] VITALS: BP 142/82; PULSE 90
[2020-09-18 07:00] VITALS: BMI 30.8
[2020-09-18 08:44] VITALS: BP 132/78; PULSE 88
[2020-09-18] MEDS: Valsartan 320 MG TABLET PO (08:44)
[2020-09-18 08:45] VITALS: BP 132/78; PULSE 88
[2020-09-18] MEDS: Metoprolol Tartrate 50 MG TABLET PO ×2 (08:45→21:39)
[2020-09-18] MEDS: Divalproex Sodium ER 500 MG TAB.ER.24H PO ×3 (08:45→21:39)
--- NOTE | 2020-09-18 12:26 | P.PNPSI_ITS ---
Subjective Subjective Date of Service: 09/18/20 Reason For Visit: Psychosis Subjective Notes: Conditional Voluntary Healthcare Proxy: No Guardianship: No Medical Problems Affecting Mental Status: No Interim History: Section XIIB . Pt signed a CV with TDN. Meeting with family and pt to discuss all of their concerns. Pt has a history of these symptoms when decompensating. Family is attempting to interviene prior to pt becoming seriously ill. Pt accepted Risperdal trial 1 mg with resulting sedation. Will decrease dosing to 0.5 mg hs (to begin 09/19 and 0. 25 mg bid prn. Plan will be to discharge pt if she is improved on 09/20 as her grand-daughter will be getting engaged on 09/21 at a family celebration and family does not want her to miss this (this child is her namesake). If she remains ill, her TDN will 09/23/20. 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 Review of Systems Reports behavioral changes Psychiatric: Reports anxiety, Reports behavioral changes, Reports change in appetite, Reports depression, Reports irritability and Reports paranoia Mental Status Exam Mental Status Exam Patient Appearance: Appropriate Patient Orientation: Person, Place, Time and Situation Level of Consciousness: Drowsy and Alert Patient Behavior: Talkative, Suspicious, Aggressive, Good Eye Contact and Crying Mood Description: Angry Affect Description: Labile Patient Cognition Impaired: No Ability to Follow Directions: Good Speech Pattern: Spontaneous Speech Memory Description: Remote Impaired Delusions: Being Controlled Thought Content: positive for Mulga and positive for Circumstantial Depressive Symptoms: Changes in Appetite Judgement: Fair Diagnostics Vital Signs (24Hr): Vital Signs - 24 hr 09/17/20 18:00 09/17/20 19:06 09/17/20 20:28 Temperature 97.8 F Pulse Rate 103 H 89 90 Respiratory Rate 16 Blood Pressure 166/80 H 144/79 H 142/82 H 09/18/20 08:44 09/18/20 08:45 Temperature Pulse Rate 88 88 Respiratory Rate Blood Pressure 132/78 132/78 Body Mass Index 30.8 Labs Results: 09/11/20 19:20 09/16/20 09:08 Labs: Laboratory Results - last 48 hr 09/17/20 11:56 POC Glucose 182 H Medications Medications Current Medications Generic Name Dose Route Start Last Admin Trade Name Freq PRN Reason Stop Dose Admin Acetaminophen 650 mg 09/15/20 22:48 Acetaminophen 325 Mg Tablet PO Q6H PRN Headache/Pain Mild Scale (1-3) Al Hydroxide/Mg Hydroxide 30 ml 09/15/20 22:48 Magnesium Hydrox/Alum Hydrox 30 Ml Oral.Susp PO Q6H PRN Heartburn/Nausea Divalproex Sodium 500 mg 09/12/20 09:00 09/18/20 08:45 Divalproex Sodium Er 500 Mg Tab.Er.24h PO 500 mg TID [facility] Administration Hydroxyzine HCl 50 mg 09/15/20 22:48 Hydroxyzine Hcl 25 Mg Tablet PO Q6H PRN Anxiety Magnesium Hydroxide 30 ml 09/15/20 22:48 Milk Of Magnesia 30 Ml Oral.Susp PO DAILY PRN Constipation Metoprolol Tartrate 50 mg 09/12/20 09:00 09/18/20 08:45 Metoprolol Tartrate 50 Mg Tablet PO 50 mg BID [facility] Administration Protocol Pharmacy Consult 1 each 09/11/20 18:59 Consult Rx Perform Med Rec MISCELLANE ONCE PRN Consult order Quetiapine Fumarate 100 mg 09/13/20 21:00 09/17/20 22:10 Quetiapine Fumarate 100 Mg Tablet PO Not Given BEDTIME MRX1 [facility] Risperidone 1 mg 09/18/20 12:00 Risperidone 1 Mg Tablet PO DAILY [facility] Trazodone HCl 50 mg 09/15/20 22:48 Trazodone Hcl 50 Mg Tablet PO BEDTIME PRN Insomnia Valsartan 320 mg 09/12/20 09:00 09/18/20 08:44 Valsartan 320 Mg Tablet PO 320 mg DAILY [facility] Administration Protocol Allergies Allergies Allergy/AdvReac Type Severity Reaction Status Date / Time No Known Allergies Allergy Unverified 12/13/19 18:58 [No Known Allergies*] Assessment & Plan Assessment & Plan (1) Bipolar I disorder: Status: Acute Code(s): F31.9 - Bipolar disorder, unspecified Assessment and Plan: 60 yo female, history of Bipolar I Disorder with hx of ~4 in pt hospitalizations. Family reports seeing sx of decompensation including lability, insomnia, refusal of medication (Seroquel specifically-pt is taking Depakote and has a therapeutic level), excessive spending of money and leaving the home without family knowledge of where she is going. Pt has spent a few days in the ER. Today, she met with the team, was calm, answered questions and did not appear with sx of psychosis. I saw her again this evening and she is able to communicate in some Divehi and she reports her family is in error regarding their concerns. We did schedule a family meeting to attempt to clarify the concerns, symptoms and attempt to offer a replacement for Seroquel if needed along with medical evaluation. -Risperdal 1 mg [id number] changed to 0.5 mg hs to begin 09/19 and 0.25 mg bid prn. -Continue Depakote -Pt signed a CV and TDN -If improved plan to discharge with family 09.20 for family celebration on 09.21 -If not improved TDN to 09.23. Greater than 50% of the session was spent on counseling and/or coordination of care Reason for contiued inpatient stay Substantial Risk for: harm to self and med/psych decompensation
[2020-09-18] MEDS: risperiDONE 1 MG TABLET PO (12:55)
--- NOTE | 2020-09-18 16:29 | PC.NURSE ---
Three Day Notice. Stephanie had signed a Conditional Voluntary and a Three Day Notice this shift. It will be up Tuesday. She may discharge on Tuesday to attend a family alliance party, BOOKKEEPER RECEPTIONIST and SW are aware.
[2020-09-18 18:00] VITALS: BP 134/78; PULSE 90; RESP 16; TEMP 36.2; O2SAT 98
[2020-09-18 21:39] VITALS: BP 125/80; PULSE 94
[2020-09-19 09:25] VITALS: BP 192/79; PULSE 104; RESP 18; TEMP 36.6; O2SAT 99
[2020-09-19 09:26] VITALS: BP 192/79; PULSE 104
[2020-09-19] MEDS: Divalproex Sodium ER 500 MG TAB.ER.24H PO ×3 (09:26→20:34)
[2020-09-19] MEDS: Valsartan 320 MG TABLET PO (09:26)
[2020-09-19] MEDS: Metoprolol Tartrate 50 MG TABLET PO ×2 (09:26→20:34)
--- NOTE | 2020-09-19 15:42 | P.PNPSI_ITS ---
Subjective Subjective Date of Service: 09/19/20 Reason For Visit: Psychosis Subjective Notes: Conditional Voluntary and 3 Day (09/23/20) Healthcare Proxy: No Guardianship: No Medical Problems Affecting Mental Status: No Interim History: Pt presenting as sad, flat, wanting to go home. Tells team that she needs to go home as she became engaged and wants to celebrate her daughter's birthday. In meeting with TW, pt denies depression, anxiety, SI, HI, plan or intent. She is hoping to return home tomorrow with family to celebrate engagement of my nephew. She initiated Risperdal on 09/18 and reports no SE and tolerance, although 1 mg made her tired, so we have decreased the dosage at HS to 0.5 and added prns if needed. She agrees to continue medications after discharge yet hopes we consider her report of SE of sedation in prescribing which TW told her we are. Discussed with pt getting feedback from family and returning to this discussion to make sure all are in agreement. Call to nando Cruz [phone] who reports family does not feel comfortable taking pt home tomorrow and will not p ick her up. After family meeting pt was easily irritated with lability and aggravation toward all (2 daughters and ), pt is unable to hear family perspective and fears she will snap. They feel they have no control of her when at home and will visit this evening at 1830 and over the weekend but will not take her home. Discussed Tuesday discharge date per three day notice and possibly meeting again to decide about if pt needs application for civil commitment. Returned to pt with medical operations supervisor and discussed concerns regarding symptoms, informing her discharge will not be tomorrow-identified symptoms of concern and need for increase in time for Risperdal to take effect. Pt presents with disappointment and distress. Team will meet with pt again to discuss. Message received from daughter Colleen [phone]. Returned call. Colleen was upset- stating we are promising discharge Tuesday/Tuesday and pt is calling Colleen accusing family of not wanting her at home. Reviewed with Colleen that pt has been informed that family agrees with the decision not to discharge and the Tuesday date is the expiration of the three day notice and at that time we will need to decide if pt is to go home, will sign a conditional voluntary again and retract the three day or if we will proceed with application for civil commitment. Colleen expressed frustration that admission in 2014 was easier-pt did not call home and was just treated without any of these conflicts. Attempted to offer support, education and assessment of what we could do to assist at this time. Medication Compliance: Yes Side effects from medications: No Attending Groups: No Review of Systems Reports behavioral changes Psychiatric: Reports behavioral changes, Reports change in appetite ([employer] fasting on Fridays.), Reports irritability and Reports mood swings Mental Status Exam Mental Status Exam Patient Appearance: Appropriate Patient Orientation: Person, Place, Time and Situation Level of Consciousness: Awake and Alert Patient Behavior: Talkative, Cooperative, Anxious and Good Eye Contact Mood Description: Constricted, Cheerful, Anxious, Sad and Apprehensive Affect Description: Constricted Patient Cognition Impaired: No Ability to Follow Directions: Good Speech Pattern: Clear and Spontaneous Speech Memory Description: Episodic Impaired Hallucinations: None Thought Process: Distracted Thought Content: positive for [place], positive for Circumstantial, positive for Preoccupation and positive for Suicidal Ideation (denies) Depressive Symptoms: Increased Irritability, Difficulty Sleeping and Changes in Appetite Judgement: Fair Diagnostics Vital Signs (24Hr): Vital Signs - 24 hr 09/18/20 18:00 09/18/20 21:39 09/19/20 09:25 Temperature 97.1 F 97.9 F Pulse Rate 90 94 104 H Respiratory Rate 16 18 Blood Pressure 134/78 125/80 192/79 H Pulse Oximetry 98 99 09/19/20 09:26 Temperature Pulse Rate 104 H Respiratory Rate Blood Pressure 192/79 H Pulse Oximetry Body Mass Index 30.8 Labs Results: 09/11/20 19:20 09/16/20 09:08 Medications Medications Current Medications Generic Name Dose Route Start Last Admin Trade Name Freq PRN Reason Stop Dose Admin Acetaminophen 650 mg 09/15/20 22:48 Acetaminophen 325 Mg Tablet PO Q6H PRN Headache/Pain Mild Scale (1-3) Al Hydroxide/Mg Hydroxide 30 ml 09/15/20 22:48 Magnesium Hydrox/Alum Hydrox 30 Ml Oral.Susp PO Q6H PRN Heartburn/Nausea Divalproex Sodium 500 mg 09/12/20 09:00 09/19/20 14:37 Divalproex Sodium Er 500 Mg Tab.Er.24h PO 500 mg TID SMILEY Administration Hydroxyzine HCl 50 mg 09/15/20 22:48 Hydroxyzine Hcl 25 Mg Tablet PO Q6H PRN Anxiety Magnesium Hydroxide 30 ml 09/15/20 22:48 Milk Of Magnesia 30 Ml Oral.Susp PO DAILY PRN Constipation Metoprolol Tartrate 50 mg 09/12/20 09:00 09/19/20 09:26 Metoprolol Tartrate 50 Mg Tablet PO 50 mg BID SMILEY Administration Protocol Pharmacy Consult 1 each 09/11/20 18:59 Consult Rx Perform Med Rec MISCELLANE ONCE PRN Consult order Risperidone 0.5 mg 09/19/20 21:00 Risperidone 0.5 Mg Tablet PO BEDTIME SMILEY Risperidone 0.25 mg 09/18/20 18:39 Risperidone 0.25 Mg Tablet PO BID PRN agitation, psychosis Trazodone HCl 50 mg 09/15/20 22:48 Trazodone Hcl 50 Mg Tablet PO BEDTIME PRN Insomnia Valsartan 320 mg 09/12/20 09:00 09/19/20 09:26 Valsartan 320 Mg Tablet PO 320 mg DAILY SMILEY Administration Protocol Allergies Allergies Allergy/AdvReac Type Severity Reaction Status Date / Time No Known Allergies Allergy Unverified 12/13/19 18:58 [No Known Allergies*] Assessment & Plan Assessment & Plan (1) Bipolar I disorder: Status: Acute Code(s): F31.9 - Bipolar disorder, unspecified Assessment and Plan: 60 yo female, history of Bipolar I Disorder with hx of ~4 in pt hospitalizations. Family reports seeing sx of decompensation including lability, insomnia, refusal of medication (Seroquel specifically-pt is taking Depakote and has a therapeutic level), excessive spending of money and leaving the home without family knowledge of where she is going. 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 Today, she asks to return home. She is compliant with medications, is calm, doing coloring project in her room and calling her family. Review with family who feels the visit last evening went poorly and pt continues to have active symptoms. They worry she is not at baseline and they will have significant problems if they take her home. They are upset that current admission is more involved than 2015 admission and express their dissatisfaction. As a result we will not discharge pt on 09/20 but will wait until 09/23 to assess if we need to file for civil commitment. -Continue Depakote, Risperdal. Titrate as needed. -TDN expires 09/23. Greater than 50% of the session was spent on counseling and/or coordination of care Reason for contiued inpatient stay Substantial Risk for: inability to function and rapid decompensation
[2020-09-19 16:16] VITALS: BP 172/67; PULSE 85; RESP 18; TEMP 36.2; O2SAT 100
[2020-09-19 20:34] VITALS: BP 116/63; PULSE 87
[2020-09-19] MEDS: risperiDONE 0.5 MG TABLET PO (20:34)
[2020-09-20 06:00] VITALS: BP 120/68; PULSE 88; RESP 16; TEMP 36; O2SAT 97
[2020-09-20 08:39] VITALS: BP 119/66; PULSE 72; RESP 18; TEMP 35.6; O2SAT 100
--- NOTE | 2020-09-20 09:07 | HO.PSYCHPN ---
Subjective Subjective Date of Service: 09/20/20 Reason For Visit: Psychosis Interim History: Patient was seen and discussed on rounds today. She was seen with the help of an japanese interpreter. She is disappointed that she is not being discharged over the weekend for some family celebrations. The possibility was discussed with her family however they did not feel that she was well enough to attend the gatherings. She has been tolerating the Risperdal 0.5 mg q.h.s. and the plan has been to titrate up which I will increase to 1 mg. She denies any side effects. Eating and sleeping adequately. She does have a 3 day notice an which will on 09/23. The plan is to discharge her hopefully by then. Medication Compliance: Yes Side effects from medications: No Diagnostics Vital Signs (24Hr): Vital Signs - 24 hr 09/19/20 09:25 09/19/20 09:26 09/19/20 16:16 Temperature 97.9 F 97.1 F Pulse Rate 104 H 104 H 85 Respiratory Rate 18 18 Blood Pressure 192/79 H 192/79 H 172/67 H Pulse Oximetry 99 100 09/19/20 20:34 09/20/20 06:00 09/20/20 08:39 Temperature 96.8 F 96.0 F L Pulse Rate 87 88 72 Respiratory Rate 16 18 Blood Pressure 116/63 120/68 119/66 Pulse Oximetry 97 100 Body Mass Index 30.8 Labs Results: 09/11/20 19:20 09/16/20 09:08 Medications Medications Current Medications Generic Name Dose Route Start Last Admin Trade Name Freq PRN Reason Stop Dose Admin Acetaminophen 650 mg 09/15/20 22:48 Acetaminophen 325 Mg Tablet PO Q6H PRN Headache/Pain Mild Scale (1-3) Al Hydroxide/Mg Hydroxide 30 ml 09/15/20 22:48 Magnesium Hydrox/Alum Hydrox 30 Ml Oral.Susp PO Q6H PRN Heartburn/Nausea Divalproex Sodium 500 mg 09/12/20 09:00 09/19/20 20:34 Divalproex Sodium Er 500 Mg Tab.Er.24h PO 500 mg TID SMILEY Administration Hydroxyzine HCl 50 mg 09/15/20 22:48 Hydroxyzine Hcl 25 Mg Tablet PO Q6H PRN Anxiety Lorazepam 1 mg 09/19/20 16:27 Lorazepam 1 Mg Tablet PO Q4H PRN agitation, anxiety Magnesium Hydroxide 30 ml 09/15/20 22:48 Milk Of Magnesia 30 Ml Oral.Susp PO DAILY PRN Constipation Metoprolol Tartrate 50 mg 09/12/20 09:00 09/19/20 20:34 Metoprolol Tartrate 50 Mg Tablet PO 50 mg BID SMILEY Administration Protocol Pharmacy Consult 1 each 09/11/20 18:59 Consult Rx Perform Med Rec MISCELLANE ONCE PRN Consult order Risperidone 0.5 mg 09/19/20 21:00 09/19/20 20:34 Risperidone 0.5 Mg Tablet PO 0.5 mg BEDTIME SMILEY Administration Risperidone 0.25 mg 09/18/20 18:39 Risperidone 0.25 Mg Tablet PO BID PRN agitation, psychosis Trazodone HCl 50 mg 09/15/20 22:48 Trazodone Hcl 50 Mg Tablet PO BEDTIME PRN Insomnia Valsartan 320 mg 09/12/20 09:00 09/19/20 09:26 Valsartan 320 Mg Tablet PO 320 mg DAILY SMILEY Administration Protocol Allergies Allergies Allergy/AdvReac Type Severity Reaction Status Date / Time No Known Allergies Allergy Unverified 12/13/19 18:58 [No Known Allergies*] Assessment & Plan Assessment & Plan (1) Bipolar I disorder: Status: Acute Code(s): F31.9 - Bipolar disorder, unspecified Assessment and Plan: 60 yo female, history of Bipolar I Disorder with hx of ~4 in pt hospitalizations. Family reports seeing sx of decompensation including lability, insomnia, refusal of medication (Seroquel specifically-pt is taking Depakote and has a therapeutic level), excessive spending of money and leaving the home without family knowledge of where she is going. 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 Today, she asks to return home. She is compliant with medications, is calm, doing coloring project in her room and calling her family. Review with family who feels the visit last evening went poorly and pt continues to have active symptoms. They worry she is not at baseline and they will have significant problems if they take her home. They are upset that current admission is more involved than 2015 admission and express their dissatisfaction. As a result we will not discharge pt on 09/20 but will wait until 09/23 to assess if we need to file for civil commitment. -Continue Depakote, Risperdal. Titrate as needed. -TDN expires 09/23. Greater than 50% of the session was spent on counseling and/or coordination of care Reason for contiued inpatient stay Substantial Risk for: other
[2020-09-20 09:11] VITALS: BP 119/66; PULSE 72
[2020-09-20] MEDS: Valsartan 320 MG TABLET PO (09:11)
[2020-09-20] MEDS: Divalproex Sodium ER 500 MG TAB.ER.24H PO ×3 (09:11→21:10)
[2020-09-20 09:12] VITALS: BP 119/66; PULSE 72
[2020-09-20] MEDS: Metoprolol Tartrate 50 MG TABLET PO ×2 (09:12→21:10)
[2020-09-20 18:00] VITALS: BP 154/86; PULSE 86; RESP 16; O2SAT 97
[2020-09-20 21:10] VITALS: BP 156/74; PULSE 99
[2020-09-20] MEDS: risperiDONE 1 MG TABLET PO (21:10)
[2020-09-21 06:00] VITALS: BP 90/59; PULSE 80; TEMP 36.1
--- NOTE | 2020-09-21 08:07 | HO.PSYCHPN ---
Subjective Subjective Date of Service: 09/21/20 Reason For Visit: Psychosis Interim History: Patient was seen and discussed in rounds today. She has been stable and accepting of being here over the weekend even though she is not happy about it. Yesterday her visited for a number of hours which was very helpful to her. She has been med compliant. No complaints or side effects reported. Eating and sleeping adequately for the most part. No changes were made today. Continue current regimen and plans Medication Compliance: Yes Side effects from medications: No Review of Systems Review of Systems Yes all other systems are reviewed and are negative Reports behavioral changes Psychiatric: Reports behavioral changes, Reports change in appetite (Christian fasting on Fridays.), Reports irritability and Reports mood swings Mental Status Exam Mental Status Exam Narrative: In today's visit she is alert, pleasant and interactive with in her means given the language barrier. Normal speech. Good eye contact. Affect is appropriate and constricted. No acute signs of psychosis. No dangerous behaviors. Cognitively intact on gross observation. Diagnostics Vital Signs (24Hr): Vital Signs - 24 hr 09/20/20 08:39 09/20/20 09:11 09/20/20 09:12 Temperature 96.0 F L Pulse Rate 72 72 72 Respiratory Rate 18 Blood Pressure 119/66 119/66 119/66 Pulse Oximetry 100 09/20/20 18:00 09/20/20 21:10 09/21/20 06:00 Temperature 97.0 F Pulse Rate 86 99 80 Respiratory Rate 16 Blood Pressure 154/86 H 156/74 H 90/59 L Pulse Oximetry 97 Body Mass Index 30.8 Labs Results: 09/11/20 19:20 09/16/20 09:08 Medications Medications Current Medications Generic Name Dose Route Start Last Admin Trade Name Freq PRN Reason Stop Dose Admin Acetaminophen 650 mg 09/15/20 22:48 Acetaminophen 325 Mg Tablet PO Q6H PRN Headache/Pain Mild Scale (1-3) Al Hydroxide/Mg Hydroxide 30 ml 09/15/20 22:48 Magnesium Hydrox/Alum Hydrox 30 Ml Oral.Susp PO Q6H PRN Heartburn/Nausea Divalproex Sodium 500 mg 09/12/20 09:00 09/20/20 21:10 Divalproex Sodium Er 500 Mg Tab.Er.24h PO 500 mg TID SMILEY Administration Hydroxyzine HCl 50 mg 09/15/20 22:48 Hydroxyzine Hcl 25 Mg Tablet PO Q6H PRN Anxiety Lorazepam 1 mg 09/19/20 16:27 Lorazepam 1 Mg Tablet PO Q4H PRN agitation, anxiety Magnesium Hydroxide 30 ml 09/15/20 22:48 Milk Of Magnesia 30 Ml Oral.Susp PO DAILY PRN Constipation Metoprolol Tartrate 50 mg 09/12/20 09:00 09/20/20 21:10 Metoprolol Tartrate 50 Mg Tablet PO 50 mg BID SMILEY Administration Protocol Pharmacy Consult 1 each 09/11/20 18:59 Consult Rx Perform Med Rec MISCELLANE ONCE PRN Consult order Risperidone 0.25 mg 09/18/20 18:39 Risperidone 0.25 Mg Tablet PO BID PRN agitation, psychosis Risperidone 1 mg 09/20/20 21:00 09/20/20 21:10 Risperidone 1 Mg Tablet PO 1 mg BEDTIME SMILEY Administration Trazodone HCl 50 mg 09/15/20 22:48 Trazodone Hcl 50 Mg Tablet PO BEDTIME PRN Insomnia Valsartan 320 mg 09/12/20 09:00 09/20/20 09:11 Valsartan 320 Mg Tablet PO 320 mg DAILY SMILEY Administration Protocol Allergies Allergies Allergy/AdvReac Type Severity Reaction Status Date / Time No Known Allergies Allergy Unverified 12/13/19 18:58 [No Known Allergies*] Assessment & Plan Assessment & Plan (1) Bipolar I disorder: Status: Acute Code(s): F31.9 - Bipolar disorder, unspecified Assessment and Plan: Continue current regimen and plans with possible discharge early in the week -Continue Depakote, Risperdal. Titrate as needed. -TDN expires 09/23. Greater than 50% of the session was spent on counseling and/or coordination of care Reason for contiued inpatient stay Substantial Risk for: other
[2020-09-21 08:14] VITALS: BP 119/66; PULSE 77
[2020-09-21] MEDS: Valsartan 320 MG TABLET PO (08:14)
[2020-09-21] MEDS: Metoprolol Tartrate 50 MG TABLET PO ×2 (08:14→20:13)
[2020-09-21] MEDS: Divalproex Sodium ER 500 MG TAB.ER.24H PO ×3 (08:14→20:13)
[2020-09-21 18:00] VITALS: BP 182/88; PULSE 106; RESP 16; O2SAT 97
[2020-09-21] MEDS: risperiDONE 1 MG TABLET PO (20:13)
--- NOTE | 2020-09-22 | ECG_ITS ---
Test Reason : Initiation/Titration of Risperdal 09/18 Blood Pressure : / mmHG Vent. Rate : 086 BPM Atrial Rate : 086 BPM P-R Int : 160 ms QRS Dur : 084 ms QT Int : 370 ms P-R-T Axes : 049 044 041 degrees QTc Int : 442 ms Normal sinus rhythm Normal ECG No previous ECGs available Referred By: Nevaeh Hill Electronically Signed By:ROWAN ROCHA MD
[2020-09-22 06:10] VITALS: BP 130/66; PULSE 90; RESP 16; TEMP 36.2; O2SAT 96
[2020-09-22 08:21] VITALS: BP 111/60; PULSE 89
[2020-09-22] MEDS: Valsartan 320 MG TABLET PO (08:21)
[2020-09-22] MEDS: Divalproex Sodium ER 500 MG TAB.ER.24H PO ×3 (08:21→19:14)
[2020-09-22 08:22] VITALS: BP 111/60; PULSE 89
[2020-09-22] MEDS: Metoprolol Tartrate 50 MG TABLET PO ×2 (08:22→19:13)
--- NOTE | 2020-09-22 12:49 | P.PNPSI_ITS ---
Subjective Subjective Date of Service: 09/22/20 Reason For Visit: Psychosis Subjective Notes: Conditional Voluntary and 3 Day (09/23/20) Healthcare Proxy: No Guardianship: No Medical Problems Affecting Mental Status: No Interim History: Pt and team report a stable weekend. Three messages received this a.m. from daughter Nancy-Tuesday visit with was much improved-family was feeling ready to take pt home over the weekend. Nancy reports pt's feels she had improved, pt's internal medicine physician assistant visited and told family he felt she was at her baseline. On 09/21 Nancy wanted to take things one day at a time. Pt is sleeping, eating (fasts regularly for quaker reasons on Fridays) Met with pt and voice planner chief. She reports no SE from Risperdal increase, no issues of concern, but wanting to go home. Social service has reached out to family and they will discuss and inform us of their decision regarding pt discharge. Medication Compliance: Yes Side effects from medications: No Attending Groups: No Review of Systems Psychiatric: Reports no additional psychiatric complaints Mental Status Exam Mental Status Exam Patient Appearance: Appropriate Patient Orientation: Person, Place, Time and Situation Level of Consciousness: Alert Patient Behavior: Cooperative Mood Description: Constricted Affect Description: Constricted Patient Cognition Impaired: No Ability to Follow Directions: Good Speech Pattern: Spontaneous Speech Memory Description: Intact Hallucinations: None Delusions: Not Present Thought Process: Intact Thought Content: positive for Intact, positive for [place] and positive for Circumstantial Judgement: Fair Diagnostics Vital Signs (24Hr): Vital Signs - 24 hr 09/21/20 18:00 09/22/20 06:10 09/22/20 08:21 Temperature 97.1 F Pulse Rate 106 H 90 89 Respiratory Rate 16 16 Blood Pressure 182/88 H 130/66 111/60 Pulse Oximetry 97 96 09/22/20 08:22 Temperature Pulse Rate 89 Respiratory Rate Blood Pressure 111/60 Pulse Oximetry Body Mass Index 30.8 Labs Results: 09/11/20 19:20 09/16/20 09:08 Medications Medications Current Medications Generic Name Dose Route Start Last Admin Trade Name Freq PRN Reason Stop Dose Admin Acetaminophen 650 mg 09/15/20 22:48 Acetaminophen 325 Mg Tablet PO Q6H PRN Headache/Pain Mild Scale (1-3) Al Hydroxide/Mg Hydroxide 30 ml 09/15/20 22:48 Magnesium Hydrox/Alum Hydrox 30 Ml Oral.Susp PO Q6H PRN Heartburn/Nausea Divalproex Sodium 500 mg 09/12/20 09:00 09/22/20 08:21 Divalproex Sodium Er 500 Mg Tab.Er.24h PO 500 mg TID SMILEY Administration Hydroxyzine HCl 50 mg 09/15/20 22:48 Hydroxyzine Hcl 25 Mg Tablet PO Q6H PRN Anxiety Lorazepam 1 mg 09/19/20 16:27 Lorazepam 1 Mg Tablet PO Q4H PRN agitation, anxiety Magnesium Hydroxide 30 ml 09/15/20 22:48 Milk Of Magnesia 30 Ml Oral.Susp PO DAILY PRN Constipation Metoprolol Tartrate 50 mg 09/12/20 09:00 09/22/20 08:22 Metoprolol Tartrate 50 Mg Tablet PO 50 mg BID SMILEY Administration Protocol Pharmacy Consult 1 each 09/11/20 18:59 Consult Rx Perform Med Rec MISCELLANE ONCE PRN Consult order Risperidone 0.25 mg 09/18/20 18:39 Risperidone 0.25 Mg Tablet PO BID PRN agitation, psychosis Risperidone 1 mg 09/20/20 21:00 09/21/20 20:13 Risperidone 1 Mg Tablet PO 1 mg BEDTIME SMILEY Administration Trazodone HCl 50 mg 09/15/20 22:48 Trazodone Hcl 50 Mg Tablet PO BEDTIME PRN Insomnia Valsartan 320 mg 09/12/20 09:00 09/22/20 08:21 Valsartan 320 Mg Tablet PO 320 mg DAILY SMILEY Administration Protocol Allergies Allergies Allergy/AdvReac Type Severity Reaction Status Date / Time No Known Allergies Allergy Unverified 12/13/19 18:58 [No Known Allergies*] Assessment & Plan Assessment & Plan (1) Bipolar I disorder: Status: Acute Code(s): F31.9 - Bipolar disorder, unspecified Assessment and Plan: Continue current regimen and plans with possible discharge early in the week -Continue Depakote, Risperdal. Titrate as needed. -TDN expires 09/23. Greater than 50% of the session was spent on counseling and/or coordination of care Reason for contiued inpatient stay Substantial Risk for: rapid decompensation
--- NOTE | 2020-09-22 15:57 | PM.PSYDC ---
DS: Providers Provider Date of Service: 09/22/20 Date of admission: 09/15/20 22:48 Date of discharge: 09/22/20 Primary care physician: Neymar Lucero MD Admitting clinician: Nevaeh Hill Attending physician on admission: Moisés Sullivan Attending physician on discharge: Moisés Sullivan Discharging clinician: Nevaeh Hill DS: Diagnosis Discharge Diagnosis (1) Bipolar I disorder: Status: Acute Problem details: 60 yo female, hx of [facility] psychiatry admission in 2014 to ER after refusing to take Seroquel due to sedation. Family reports an increase in agitation, irritability, decrease in sleep, increase in spending, leaving the home without informing the family where she is going, disorganization. Pt reported she had concerns about her mother who lives in [place] as her sister has been on holiday. Pt would like to be with her mom to assist with her care. DS: Medications Discharge Medications Home Medications: Previous Rx's Medication Instructions Recorded divalproex 500 mg PO TID #33 tab 09/22/20 metoprolol tartrate 50 mg PO BID #30 tab 09/22/20 risperidone 0.25 mg PO BID PRN #22 tab 09/22/20 risperidone 1 mg PO BEDTIME #11 tab 09/22/20 valsartan [Diovan] 320 mg PO DAILY #15 tab 09/22/20 Discharge Plan Discharge Anticipated Discharge Date/Time: 09/22/20 18:30 Patient Disposition: Home, Self-Care Discharge Diagnosis: Bipolar Disorder Referrals: Dr. Reyes (psychiatrist) [Other] - 10/02/20 3:00 pm (Telehealth appointment, over the phone) Neymar Lucero MD [Primary Care Provider] - 1 Week (Call to PCP office on 09/22. Their office will notify pt at home on 09/23 of appt date and time as it needs scheduling by RN. BP elevation discussed. The office reports pt has not used BP meds since 2019. Notified of Metoprolol/Diovan re-enstatement.) Discharge Medications: New risperidone 0.25 mg Tablet 0.25 mg PO BID PRN (Reason: agitation, psychosis) Qty: 22 RF: 0 divalproex 500 mg Tablet Extended Release 24 Hr 500 mg PO TID Qty: 33 RF: 0 valsartan [Diovan] 320 mg Tablet 320 mg PO DAILY Qty: 15 RF: 0 metoprolol tartrate 50 mg Tablet 50 mg PO BID Qty: 30 RF: 0 risperidone 1 mg Tablet 1 mg PO BEDTIME Qty: 11 RF: 0 Discontinued divalproex 500 mg tablet extended release 24 hr 1 tab PO TID RF: 0 valsartan 320 mg Tablet 320 mg PO DAILY RF: 0 metoprolol tartrate 50 mg Tablet 50 mg PO BID RF: 0 Discharge Orders: Discharge Order (Routine); Ordered 09/22/20 Ordered By: Nevaeh Hill Diet: regular diet Activity on Discharge: As tolerated Stand Alone Forms: Patient Portal Discharge page, Community Support Care Plan Goals: Mood Stabilization Health Concerns: Bipolar Disorder- Take medications as directed and follow up with Dr. Hay. Hypertension- you were re-started on Metoprolol and Diovan during your admission. Please follow up with your primary care physician for further assessment. They will call you on 09/23/20 to schedule your appointment. Elevated Cholesterol- you requested to follow up with your primary care physician regarding this issue-we have sent copies of your labs for your follow up appointment Elevated HgbA1C- you requested to follow up with your primary care physician regarding this issue-we have sent copies of your labs for your follow up appointment Valproate Level 87.8 on 09/15/20. Plan of Treatment: Take medications as directed. Attend all follow up appointments Please return to the Emergency Department if your symptoms increase. Assessment: Assisted by video continuous miner operator helper as pt speaks mostly Mozambican, with some Beninese Alert, oriented x 3, no evidence of psychosis, non-suicidal, non-homicidal, no sx of toni. Per family reports over the weekend, pt is improved and returning to baseline. Instructed pt's daughter Nancy to have pt return to the ER should sx recur. Family requests a discharge time of 630pm 1830 Patient Instructions: Metoprolol (By mouth), Risperidone (By mouth), Valsartan (By mouth), Divalproex (By mouth) Discharge Date/Time: 09/22/20 19:15 Mental Status Exam Mental Status Exam Patient Appearance: Appropriate Patient Orientation: Person, Place, Time and Situation Level of Consciousness: Alert Patient Behavior: Appropriate, Talkative and Cooperative Mood Description: Constricted Affect Description: Constricted Patient Cognition Impaired: No Ability to Follow Directions: Good Speech Pattern: Spontaneous Speech Memory Description: Intact Hallucinations: None Delusions: Not Present Thought Process: Intact Thought Content: positive for Intact Judgement: Fair Data Data Completed and Pending Completed studies during hospitalization [Text1]: 09/16/20 09/16/20 09/16/20 06:24 09:08 09:08 Sodium 141 Potassium 4.9 Chloride 103 Carbon Dioxide 28 Anion Gap 15 BUN 20 H Creatinine 0.75 Estim Creat Clear Calc 88.6 Estimated GFR > 60 POC Glucose 91 Fasting Glucose 86 Estimat Average Glucose 180 Hemoglobin A1c % 7.9 Calcium 9.3 Total Bilirubin 1.0 AST 29 D ALT 40 H Alkaline Phosphatase 71 Total Protein 7.1 Albumin 4.2 Triglycerides 234 Cholesterol 266 LDL Cholesterol, Calc 195 HDL Cholesterol 25 Vitamin B12 Folate TSH 1.80 09/16/20 09/17/20 09:08 11:56 Sodium Potassium Chloride Carbon Dioxide Anion Gap BUN Creatinine Estim Creat Clear Calc Estimated GFR POC Glucose 182 H Fasting Glucose Estimat Average Glucose Hemoglobin A1c % Calcium Total Bilirubin AST ALT Alkaline Phosphatase Total Protein Albumin Triglycerides Cholesterol LDL Cholesterol, Calc HDL Cholesterol Vitamin B12 896 Folate 17.8 TSH DS: Summary Hospital Course Hospital Course: Pt admitted on a Section XIIB, able to sign herself in and sign a three day notice of intent on 09/18/20.. Pt refused to re-start Seroquel as she reported it caused excess sedation. On 09/18 she agreed to a trial of Risperdal. 1mg was given with sedative SE. Pt agreed to continue with a decrease in dosage to 0.5 mg HS and 0.25 mg bid prn. She was able to tolerate a dosage increase on 09/20 and has returned to 1 mg hs with 0.25mg bid prn. During her admission she did not exhibit sx of agitation, aggression, toni, overt psychosis, suicidality, homicidality or significant depressive sx. Language barrier was considered as we needed to use IPad continuous miner operator helper for all interactions. Family meeting was held on 09/18 and tentative discharge was scheduled for 09/20, however, pt's visit after the family meeting indicated she was still symptomatic and not ready to leave,family not feeling comfortable with taking her home. She remained in patient with ongoing Risperdal titration. She will follow up with primary care team (they will call her 09/23 to schedule appt) and psychiatry team (10/02). Medications were sent to [facility] for refill. Labs/EKG were sent to [facility] for review at [facility]. Per [facility] and [facility], pt had stopped blood pressure meds in 2019. These were re-started during admission with some high readings which were sent for review to primary care team. Ranges were 115-192/57-95. Time spent discussing smoking cessation with patient: 3 to 10 minutes Status at Discharge Cognitive/behavioral status at discharge: Alert, Calm, non-psychotic, non-suicidal, no sx toni Functional status at discharge: independent ambulation Overall status at discharge: patient is progressing back to baseline Time Spent with Patient Time attestation: Total time spent providing and/or coordinating discharge services:45 Time spent: Greater than 30 minutes
[2020-09-22 19:05] VITALS: BP 120/67; PULSE 105; TEMP 36.2
[2020-09-22 19:13] VITALS: BP 120/67; PULSE 105
[2020-09-22] MEDS: risperiDONE 1 MG TABLET PO (19:13)
== END 2020-09-22 19:15 | disposition home or self-care (01) | DRG 885 ==
LOC: HO.ED 09-15 16:57 → HO.PM5 09-15 23:04
PROVIDERS: Nurse Practitioner Family; Psychiatry & Neurology Psychiatry; Admitting Provider Social Worker; Emergency Provider Emergency Medicine Emergency Medical Services; PCP Internal Medicine; Visit Provider Clinical Nurse Specialist Psychiatric/Mental Health, Adult
DX: F31.9 Bipolar disorder, unspecified (principal); Z20.822 Contact with and (suspected) exposure to COVID-19; Z79.899 Other long term (current) drug therapy
CPT/HCPCS: 36415; 80053; 80061; 80076; 80164; 80307; 82077; 82607; 82746; 82947; 83036; 84443; 85025; 87635; 93005; 99285

== ENCOUNTER 2022-10-16 13:12 | Inpatient (IN) | payer OTHER, SELFPAY ==
[2022-10-16 13:24] VITALS: BP 157/92; PULSE 108; RESP 17; TEMP 36.1; O2SAT 99; BMI 31.8
--- NOTE | 2022-10-16 13:24 | ED_ITS ---
HPI - Psych General Chief Complaint: Psychiatric Symptoms Stated Complaint: bipolar issues Time Seen by Provider: 10/16/22 16:03 Source: family Mode of arrival: ambulatory Limitations: no limitations History of Present Illness HPI Narrative: Patient comes to the emergency room accompanied by her daughter. Patient is only Cymro speaking. Rug Sample Beveler was offered. Patient and daughter declined, daughter will be translating. Patient has history of bipolar disorder. Patient is usually fairly well controlled, but whenever there is a major event in her life, patient decompensates. Patient's other states that the patient has other daughter is about to get and that might have triggered her manic epis ode. For about a week, patient has not been sleeping. Patient's has been giving her Seroquel and Depakote. However, today patient refused to take medications and was brought to the emergency room. Related Data Home Medications Medication Instructions Recorded Confirmed aspirin 81 mg tablet,delayed 81 mg PO DAILY 10/16/22 10/16/22 release atorvastatin 40 mg tablet 40 mg PO DAILY 10/16/22 10/16/22 glipizide 10 mg tablet 10 mg PO DAILY 10/16/22 10/16/22 metformin 1,000 mg tablet 1,000 mg PO BID 10/16/22 10/16/22 sitagliptin phosphate 100 mg 100 mg PO DAILY 10/16/22 10/16/22 tablet (Januvia) valsartan 320 mg tablet 320 mg PO DAILY 10/16/22 10/16/22 Previous Rx's Medication Instructions Recorded divalproex 500 mg tablet,extended 500 mg PO TID #33 tabs 09/22/20 release 24 hr metoprolol tartrate 50 mg tablet 50 mg PO BID #30 tabs 09/22/20 Allergies Allergy/AdvReac Type Severity Reaction Status Date / Time No Known Allergies Allergy Unverified 12/13/19 18:58 [No Known Allergies*] Review of Systems Review of Systems: Constitutional : No Weight loss, No Fever, No Chills, No Night Sweats, No Fatigue, No Malaise ENT/Mouth : No Hearing loss, No Ear Pain, No Nasal Congestion, No Sinus Pain, No Hoarseness, No sore throat, No Rhinorrhea, No Swallowing Difficulty Eyes: No Eye Pain, No Swelling, No Redness, No Foreign Body, No Discharge, No Vision Changes Cardiovascular : No Chest Pain, No SOB, No Dyspnea on Exertion, No Orthopnea, No Edema, No Palpitations Respiratory : No Cough, No Sputum, No Wheezing, No Smoke Exposure, No Dyspnea Gastrointestinal : No Nausea, No Vomiting, No Diarrhea, No Constipation, No abdominal Pain, No Hematochezia, No Melena Genitourinary : no irregular bleeding, No Dysuria, No Urinary Frequency, No Hematuria, No Urinary Incontinence, No Urgency, No Flank Pain, No Urinary Flow Changes, No Hesitancy Musculoskeletal : No joint pain, No Myalgias, No Joint Swelling Skin : No Skin Lesions, No rash Neuro : No Weakness, No Numbness, No Paresthesias, No Loss of Consciousness, No Dizziness, No Headache Psych : Not sleeping, decompensation, manic (per patient's daughter) Heme/Lymph: No Bruising, No Bleeding,No Lymphadenopathy Endocrine : No Polyuria, No Polydipsia, No Temperature Intolerance PMFSH Past Medical History Medical History Bipolar affective disorder, manic Bipolar I disorder delivery delivered Diabetes Hypertension Social History Social History Household Members: Spouse and Children Housing: House Do you presently have visiting nurse or other home services: No Patient Tobacco Use Status: Never used Tobacco Smoked in Last 30 Days: No Second Hand Smoke Exposure: No Use of substances other than those prescribed or required for medical reasons: No Advance Directives: No Advance Directives Information Provided: Yes Healthcare Proxy: No Guardian: No service: No Sexual orientation: Unable to assess Physical Exam Vital Signs: Vital Signs: Last Vital Signs Temp 97.4 F 10/18/22 06:36 Pulse 101 H 10/18/22 06:36 Resp 17 10/18/22 06:36 BP 120/98 H 10/18/22 06:36 Pulse Ox 97 10/18/22 06:36 O2 Del Method Room Air 10/18/22 06:36 BMI result Body Mass Index 31.8 Const: Other: Appearance: Alert. Oriented X3. No acute distress. Eyes: Pupils equal, round and reactive to light. ENT: Pharynx normal. Neck: Normal inspection. Neck supple. No lymph nodes noted. No crepitus CVS: Normal heart rate and rhythm. Pulses normal. Normal S1 and S2 Respiratory: No respiratory distress. Breath sounds normal. No Wheezing. No rales Abdomen: Soft and nontender. No rigidity. No distention. Skin: Skin warm and dry. Normal skin color. Normal skin turgor. Extremities: No lower extremity edema. No Lacerations. No Rash Neuro: Oriented X 3. No motor deficit. No sensory deficit. Moving all extremities. No slurred speech. CN 2 through 12 grossly intact Psych: calm, cooperative, normal affect Course Course Course Narrative: This is an RME: Additional HPI, ROS, PE not included below will be deferred to primary provider. Patient is a 62-year-old Cymro-speaking female who presents emergency department with daughter and . Daughter reports a bipolar episode over the past 1.5 weeks. Patient does not take daily week medications for management only when she has an episode. Patient's began administering Seroquel 25mg QD in AM about 1 week ago, and past 2 nights additional Seroquel 200mg, and Depakote 250mg BID 1 week ago. Symptoms were starting to improve, patient was getting sleep, today she appears worse to family, not sleeping, will not take the medication, becoming very silent. Does not have current psychiatrist. Reevaluation(s) Reevaluation #1: I have assumed care to approximate 7:00 a.m. this morning. Patient has history of bipolar disorder with reported noncompliance to medications. We are waiting a care team consultation. Patient's Depakote level slightly subtherapeutic. Patient is UTI and I will initiate antibiotics. Time: 10:02 Medications Administered Generic Name Dose Route Start Last Admin Trade Name Dequan PRN Reason Stop Dose Admin Aspirin 81 mg 10/17/22 14:15 10/17/22 14:30 Aspirin Enteric Coated 81 Mg Tablet. PO Not Given DAILY SMILEY Atorvastatin Calcium 40 mg 10/17/22 14:15 10/17/22 14:30 Atorvastatin Calcium 40 Mg Tablet PO Not Given DAILY [facility] Divalproex Sodium 500 mg 10/17/22 15:00 10/17/22 20:17 Divalproex Sodium Er 500 Mg Tab.Er.24h PO 500 mg TID SMILEY Administration Glipizide 10 mg 10/17/22 14:15 10/17/22 14:29 Glipizide 10 Mg Tablet PO Not Given DAILY [facility] Metformin HCl 1,000 mg 10/17/22 14:15 10/17/22 20:18 Metformin Hcl 1,000 Mg Tablet PO 1,000 mg BID SMILEY Administration Metoprolol Tartrate 50 mg 10/17/22 14:15 10/17/22 20:19 Metoprolol Tartrate 50 Mg Tablet PO 50 mg BID SMILEY Administration Protocol Quetiapine Fumarate 50 mg 10/17/22 15:54 10/17/22 20:17 Quetiapine Fumarate 50 Mg Tablet PO 50 mg Q6H PRN Administration agitation Sitagliptin Phosphate 100 mg 10/17/22 14:15 10/17/22 14:29 Sitagliptin Phosphate 100 Mg Tablet PO Not Given DAILY SMILEY Valsartan 320 mg 10/17/22 14:15 10/17/22 14:29 Valsartan 320 Mg Tablet PO Not Given DAILY SMILEY Protocol Discontinued Medications Generic Name Dose Route Start Last Admin Trade Name Freq PRN Reason Stop Dose Admin Lorazepam 1 mg 10/16/22 16:03 10/16/22 16:30 Lorazepam 1 Mg Tablet PO 10/16/22 16:04 1 mg ONCE ONE Administration Lorazepam 2 mg 10/17/22 05:10 10/17/22 05:14 Lorazepam 1 Mg Tablet PO 10/17/22 05:11 2 mg ONCE ONE Administration Olanzapine 10 mg 10/17/22 20:12 10/17/22 21:15 Olanzapine 10 Mg Tablet PO 10/17/22 20:13 10 mg ONCE ONE Administration Quetiapine Fumarate 50 mg 10/16/22 16:05 10/17/22 05:14 Quetiapine Fumarate 50 Mg Tablet PO 50 mg RQ6H PRN Administration anxiety/restlessness Medical Decision Making Medical Decision Making MDM Narrative: -patient's labs pending -care team consult pending -physician observation started at 16:30 Lab Data 10/16/22 13:47 10/16/22 13:47 Labs: Lab Results 10/16/22 10/16/22 10/16/22 Range/Units 13:47 13:47 13:47 WBC 6.7 (4.8-10.8) X10*3/uL RBC 4.58 (4.20-5.50) X10*6/uL Hgb 13.4 (12.0-16.0) g/dl Hct 40.2 (37.0-47.0) % MCV 87.8 (80.0-98.0) fL MCH 29.3 (27.0-33.0) pg MCHC 33.3 (31.0-35.0) g/dl RDW 12.9 (11.0-16.0) % Plt Count 230 (160-400) X10*3/uL MPV 10.1 (9.4-12.3) fL Immature Gran % (Auto) 0.3 (0.0-0.4) % Neut % (Auto) 70.9 (45-73) % Lymph % (Auto) 21.4 (20-40) % [place] % (Auto) 6.6 (2-11) % Eos % (Auto) 0.4 (0-4) % Baso % (Auto) 0.4 (0-2) % Lymph # (Auto) 1.4 (1.2-4.9) X10*3/uL [place] # (Auto) 0.4 (0.1-1.2) X10*3/uL Eos # (Auto) 0.0 (0.0-0.4) X10*3/uL Baso # (Auto) 0.0 (0.0-0.2) X10*3/uL Abs Immat Gran (auto) 0.02 (0.00-0.03) X10*3/uL Absolute Neuts (auto) 4.7 (2.0-8.3) x10*3/uL Absolute Nucleated RBC 0.000 (0.0-0.012) X10*3/uL Nucleated RBC % (auto) 0.0 (0.0-0.2) /100WBC Sodium 142 (135-145) mmol/L Potassium 5.1 (3.3-5.1) mmol/L Chloride 107 (96-108) mmol/L Carbon Dioxide 23 (22-29) mmol/L Anion Gap 17 (12-20) BUN 21 H (9-16) mg/dL Creatinine 0.89 (0.5-1.4) mg/dL Estim Creat Clear Calc 73.0 Estimated GFR > 60 POC Glucose (60-115) mg/dL Random Glucose 104 (60-115) mg/dL Calcium 10.1 D (8.4-10.2) mg/dL Total Bilirubin 1.1 H (0.0-1.0) mg/dL AST 29 (5-31) U/L ALT 39 H (0-31) U/L Alkaline Phosphatase 77 (39-117) U/L Total Protein 7.4 (6.5-8.0) g/dL Albumin 4.4 (3.5-5.0) g/dL Urine Color Urine Appearance Urine pH (5.0-9.0) Ur Specific Kyle (1.005-1.025) Urine Protein (Neg-Trace) mg/dL Urine Glucose (UA) (Negative) mg/dL Urine Ketones (Negative) mg/dL Urine Blood (Negative) Urine Nitrite (Negative) Ur Leukocyte Esterase (Negative) Urine RBC (0-2) /HPF Urine WBC (0-5) /HPF Ur Squamous Epith Cells (0-2) /HPF Urine Bacteria (None Seen) Hyaline Casts (0-2) /LPF Urine Opiates Screen (Not Detect) Urine Fentanyl Screen (Not Detect) Ur Barbiturates Screen (Not Detect) Valproic Acid 35.3 L (50.0-100.0) mcg/mL Ur Phencyclidine Scrn (Not Detect) Ur Amphetamines Screen (Not Detect) U Benzodiazepines Scrn (Not Detect) Urine Cocaine Screen (Not Detect) U Marijuana (THC) Screen (Not Detect) COVID-19 (DIGNA) (Negative) COVID-19 Clin Com 10/16/22 10/16/22 10/18/22 Range/Units 20:19 20:19 06:40 WBC (4.8-10.8) X10*3/uL RBC (4.20-5.50) X10*6/uL Hgb (12.0-16.0) g/dl Hct (37.0-47.0) % MCV (80.0-98.0) fL MCH (27.0-33.0) pg MCHC (31.0-35.0) g/dl RDW (11.0-16.0) % Plt Count (160-400) X10*3/uL MPV (9.4-12.3) fL Immature Gran % (Auto) (0.0-0.4) % Neut % (Auto) (45-73) % Lymph % (Auto) (20-40) % [place] % (Auto) (2-11) % Eos % (Auto) (0-4) % Baso % (Auto) (0-2) % Lymph # (Auto) (1.2-4.9) X10*3/uL [place] # (Auto) (0.1-1.2) X10*3/uL Eos # (Auto) (0.0-0.4) X10*3/uL Baso # (Auto) (0.0-0.2) X10*3/uL Abs Immat Gran (auto) (0.00-0.03) X10*3/uL Absolute Neuts (auto) (2.0-8.3) x10*3/uL Absolute Nucleated RBC (0.0-0.012) X10*3/uL Nucleated RBC % (auto) (0.0-0.2) /100WBC Sodium (135-145) mmol/L Potassium (3.3-5.1) mmol/L Chloride (96-108) mmol/L Carbon Dioxide (22-29) mmol/L Anion Gap (12-20) BUN (9-16) mg/dL Creatinine (0.5-1.4) mg/dL Estim Creat Clear Calc Estimated GFR POC Glucose (60-115) mg/dL Random Glucose (60-115) mg/dL Calcium (8.4-10.2) mg/dL Total Bilirubin (0.0-1.0) mg/dL AST (5-31) U/L ALT (0-31) U/L Alkaline Phosphatase (39-117) U/L Total Protein (6.5-8.0) g/dL Albumin (3.5-5.0) g/dL Urine Color Yellow Urine Appearance Clear Urine pH 5.5 (5.0-9.0) Ur Specific Kyle 1.015 (1.005-1.025) Urine Protein Negative (Neg-Trace) mg/dL Urine Glucose (UA) Negative (Negative) mg/dL Urine Ketones 40 (Negative) mg/dL Urine Blood Negative (Negative) Urine Nitrite Negative (Negative) Ur Leukocyte Esterase Moderate (2+) H (Negative) Urine RBC 0-2 (0-2) /HPF Urine WBC 21-50 H (0-5) /HPF Ur Squamous Epith Cells 11-20 (0-2) /HPF Urine Bacteria 1+ (None Seen) Hyaline Casts 3-5 (0-2) /LPF Urine Opiates Screen Not Detected (Not Detect) Urine Fentanyl Screen Not Detected (Not Detect) Ur Barbiturates Screen Not Detected (Not Detect) Valproic Acid (50.0-100.0) mcg/mL Ur Phencyclidine Scrn Not Detected (Not Detect) Ur Amphetamines Screen Not Detected (Not Detect) U Benzodiazepines Scrn Not Detected (Not Detect) Urine Cocaine Screen Not Detected (Not Detect) U Marijuana (THC) Screen Not Detected (Not Detect) COVID-19 (DIGNA) Negative (Negative) COVID-19 Clin Com See Note 10/18/22 Range/Units 09:33 WBC (4.8-10.8) X10*3/uL RBC (4.20-5.50) X10*6/uL Hgb (12.0-16.0) g/dl Hct (37.0-47.0) % MCV (80.0-98.0) fL MCH (27.0-33.0) pg MCHC (31.0-35.0) g/dl RDW (11.0-16.0) % Plt Count (160-400) X10*3/uL MPV (9.4-12.3) fL Immature Gran % (Auto) (0.0-0.4) % Neut % (Auto) (45-73) % Lymph % (Auto) (20-40) % [place] % (Auto) (2-11) % Eos % (Auto) (0-4) % Baso % (Auto) (0-2) % Lymph # (Auto) (1.2-4.9) X10*3/uL [place] # (Auto) (0.1-1.2) X10*3/uL Eos # (Auto) (0.0-0.4) X10*3/uL Baso # (Auto) (0.0-0.2) X10*3/uL Abs Immat Gran (auto) (0.00-0.03) X10*3/uL Absolute Neuts (auto) (2.0-8.3) x10*3/uL Absolute Nucleated RBC (0.0-0.012) X10*3/uL Nucleated RBC % (auto) (0.0-0.2) /100WBC Sodium (135-145) mmol/L Potassium (3.3-5.1) mmol/L Chloride (96-108) mmol/L Carbon Dioxide (22-29) mmol/L Anion Gap (12-20) BUN (9-16) mg/dL Creatinine (0.5-1.4) mg/dL Estim Creat Clear Calc Estimated GFR POC Glucose 241 H (60-115) mg/dL Random Glucose (60-115) mg/dL Calcium (8.4-10.2) mg/dL Total Bilirubin (0.0-1.0) mg/dL AST (5-31) U/L ALT (0-31) U/L Alkaline Phosphatase (39-117) U/L Total Protein (6.5-8.0) g/dL Albumin (3.5-5.0) g/dL Urine Color Urine Appearance Urine pH (5.0-9.0) Ur Specific Kyle (1.005-1.025) Urine Protein (Neg-Trace) mg/dL Urine Glucose (UA) (Negative) mg/dL Urine Ketones (Negative) mg/dL Urine Blood (Negative) Urine Nitrite (Negative) Ur Leukocyte Esterase (Negative) Urine RBC (0-2) /HPF Urine WBC (0-5) /HPF Ur Squamous Epith Cells (0-2) /HPF Urine Bacteria (None Seen) Hyaline Casts (0-2) /LPF Urine Opiates Screen (Not Detect) Urine Fentanyl Screen (Not Detect) Ur Barbiturates Screen (Not Detect) Valproic Acid (50.0-100.0) mcg/mL Ur Phencyclidine Scrn (Not Detect) Ur Amphetamines Screen (Not Detect) U Benzodiazepines Scrn (Not Detect) Urine Cocaine Screen (Not Detect) U Marijuana (THC) Screen (Not Detect) COVID-19 (DIGNA) (Negative) COVID-19 Clin Com Discharge Plan Discharge Clinical Impression: Bipolar I disorder Patient Disposition: Still a Patient Prescriptions: No Action divalproex 500 mg Tablet Extended Release 24 Hr 500 mg PO TID Qty: 33 0RF metoprolol tartrate 50 mg Tablet 50 mg PO BID Qty: 30 0RF Protocol: Hold for SBP/HR < HOLD for SBP < : 90 HOLD for HR < : 60 atorvastatin 40 mg tablet 40 mg PO DAILY aspirin 81 mg tablet,delayed release (DR/EC) 81 mg PO DAILY glipizide 10 mg tablet 10 mg PO DAILY metformin 1,000 mg tablet 1,000 mg PO BID valsartan 320 mg tablet 320 mg PO DAILY Januvia 100 mg Tablet 100 mg PO DAILY Interventions: [place]-Suicide Risk Severity Scale Last Done: 10/17/22 21:11
[2022-10-16 13:51] LABS: MANUAL DIFF FLAG NO
[2022-10-16 13:54] LABS: Basophils Percent Auto 0.4 % (0-2); Eosinophils Percent Auto 0.4 % (0-4); Hematocrit 40.2 % (37.0-47.0); Hemoglobin 13.4 g/dl (12.0-16.0); Imm Gran Abs Auto 0.02 X10*3/uL (0.00-0.03); Imm Gran Pct Auto 0.3 % (0.0-0.4); Lymphocytes Absolute Auto 1.4 X10*3/uL (1.2-4.9); Lymphocytes Percent Auto 21.4 % (20-40); Mean Corpuscular HGB Conc 33.3 g/dl (31.0-35.0); Mean Corpuscular Hemoglobin 29.3 pg (27.0-33.0); Mean Corpuscular Volume 87.8 fL (80.0-98.0); Mean Platelet Volume 10.1 fL (9.4-12.3); Monocytes Absolute Auto 0.4 X10*3/uL (0.1-1.2); Monocytes Percent Auto 6.6 % (2-11); Neutrophils Absolute Auto 4.7 x10*3/uL (2.0-8.3); Neutrophils Percent Auto 70.9 % (45-73); Platelet Count 230 X10*3/uL (160-400); Red Blood Count 4.58 X10*6/uL (4.20-5.50); Red Cell Distribution Width 12.9 % (11.0-16.0); White Blood Count 6.7 X10*3/uL (4.8-10.8)
[2022-10-16 14:11] LABS: Valproate 35.3 mcg/mL (50.0-100.0)
[2022-10-16 14:14] LABS: Alanine Aminotransferase 39 U/L (0-31); Albumin Level 4.4 g/dL (3.5-5.0); Alkaline Phosphatase 77 U/L (39-117); Anion Gap 17 (12-20); Aspartate Amino Transferase 29 U/L (5-31); Bilirubin Total 1.1 mg/dL (0.0-1.0); Blood Urea Nitrogen 21 mg/dL (9-16); Calcium 10.1 mg/dL (8.4-10.2); Carbon Dioxide 23 mmol/L (22-29); Chloride 107 mmol/L (96-108); Estimated Glomerular Filt Rate > 60; Glucose Random 104 mg/dL (60-115); Potassium 5.1 mmol/L (3.3-5.1); Sodium 142 mmol/L (135-145); Total Protein 7.4 g/dL (6.5-8.0)
[2022-10-16] MEDS: LORazepam 1 MG TABLET PO (16:30)
[2022-10-16] MEDS: QUEtiapine Fumarate 50 MG TABLET PO (16:31)
--- NOTE | 2022-10-16 16:46 | PC.NURSE ---
triage note: client comes in accompanied by dtr irina who offered to translate for patient, client seemed amenable to this and i did recognize client from prev admit about 2 years ago (client is tall and has distinctive appearance). clients dtr states recently client has had poor sleep and poor food intake. client states patient has been off psychiatric medication for quite a while, leaves hospital and stays on meds for about three months then stops taking them . clients other dtr is getting soon and it seems to have triggered and perhaps overwhelmed patient, irina states theres been more people in the house, and despite them ordering some meals to minimize burden for the las 2d no sleep, for 2 days the clients has been administering 200mg seroquel and 250mg depakote either 2 times a day or once a day. clients dtr reported dx of bipolar d/o, DM, ?HTN. clients dtr denies si hi (from client) but recently client has expressed regretting helping out so much (seemingly to punish the family)
[2022-10-16 17:03] VITALS: BP 145/89; PULSE 111; RESP 16; TEMP 36.5; O2SAT 98
[2022-10-16 20:27] LABS: Appearance Urine Clear; Color Urine Yellow; Glucose Urine UA Negative (Negative); Leukocyte Esterase Urine Moderate (2+) (Negative); Nitrite Urine Negative (Negative); PH 5.5 (5.0-9.0); Specific Gravity - Urine 1.015 (1.005-1.025); UMIC TRIGGER UACC YES; Urine Blood Negative (Negative); Urine Ketones 40 mg/dL (Negative); Urine Protein Negative (Neg-Trace)
[2022-10-16 20:31] LABS: Bacteria Urine 1+ (None Seen); RBC Urine 0-2 /HPF (0-2); UACC Culture Trigger YES; WBC Urine 21-50 /HPF (0-5)
[2022-10-16 20:35] LABS: Amphetamine Screen Urine Not Detected (Not Detect); Barbiturates, Urine Not Detected (Not Detect); Benzodiazepines Screen Urine Not Detected (Not Detect); Cannabinoid Screen Urine Not Detected (Not Detect); Cocaine Screen Urine Not Detected (Not Detect); Fentanyl, urine Not Detected (Not Detect); Opiate Screen Urine Not Detected (Not Detect); Phencyclidine Screen Urine Not Detected (Not Detect)
--- NOTE | 2022-10-17 | ECG_ITS ---
Test Reason : MEDICAL CLEARANCE Blood Pressure : / mmHG Vent. Rate : 093 BPM Atrial Rate : 093 BPM P-R Int : 168 ms QRS Dur : 084 ms QT Int : 362 ms P-R-T Axes : 069 044 058 degrees QTc Int : 450 ms Normal sinus rhythm Normal ECG When compared with ECG of 22-SEP-2020 16:46, No significant change was found Referred By: Generic ED Physician Electronically Signed By:ROWAN ROCHA MD
[2022-10-17 01:47] VITALS: RESP 16
[2022-10-17] MEDS: QUEtiapine Fumarate 50 MG TABLET PO ×2 (05:14→20:17)
[2022-10-17] MEDS: LORazepam 1 MG TABLET 2 MG PO (05:14)
--- NOTE | 2022-10-17 05:50 | PC.NURSE ---
Patient slept intermittently, appears restless and anxious Ativan 2 mg PO and PRN Seroquel 50 mg administered at 0514 pending effect, disposition per care team is section 12 inpatient bed search, behavior non concerning, VSS, med rec completed/pending provider's approval, will continue to monitor.
--- NOTE | 2022-10-17 11:40 | MHC.CARE ---
RAD Team conducted an external [facility] bed search for this individual, however, there are no beds available across the state for today. The search is exhausted and will be revisted tomorrow if deemed necessary.
[2022-10-17] MEDS: Divalproex Sodium ER 500 MG TAB.ER.24H PO ×2 (16:28→20:17)
--- NOTE | 2022-10-17 16:38 | PC.NURSE ---
Patient sitting on bed reading her bible. Patient calm and cooperative at this time, no s/s of distress noted.
[2022-10-17 18:28] VITALS: BP 144/90; PULSE 108; RESP 16; TEMP 36.6; O2SAT 98
[2022-10-17] MEDS: metFORMIN HCl 1,000 MG TABLET 1000 MG PO (20:18)
[2022-10-17] MEDS: Metoprolol Tartrate 50 MG TABLET PO (20:19)
--- NOTE | 2022-10-17 20:41 | PC.NURSE ---
patient received in the bed with eyes closed patient vitals are stable patient received all medications with no issues patient had a stated the patient needed something to sleep doctor was notified and patient was medicated patient will continue to be encouraged to open up to staff safety will be maintained
[2022-10-17] MEDS: OLANZapine 10 MG TABLET PO (21:15)
--- NOTE | 2022-10-18 03:33 | PC.NURSE ---
patient in bed with eyes closed patient showing no distress at this time patient will continue to be monitored for safety
[2022-10-18 06:36] VITALS: BP 120/98; PULSE 101; RESP 17; TEMP 36.3; O2SAT 97
[2022-10-18 07:08] LABS: COVID-19 Test Negative (Negative); IDNOW Serial# BCCEAD1C
--- NOTE | 2022-10-18 09:23 | PC.NURSE ---
pt is sitting up in bed reading her bible. pt is a/o no sob/reina noted.
[2022-10-18 09:39] LABS: Glucose, Whole Blood 241 mg/dL (60-115)
[2022-10-18] MEDS: Valsartan 320 MG TABLET PO (10:15)
[2022-10-18] MEDS: SITagliptin Phosphate 100 MG TABLET PO (10:15)
[2022-10-18] MEDS: Divalproex Sodium ER 500 MG TAB.ER.24H PO ×3 (10:16→21:22)
[2022-10-18] MEDS: metFORMIN HCl 1,000 MG TABLET 1000 MG PO ×2 (10:16→21:22)
[2022-10-18] MEDS: Aspirin Enteric Coated 81 MG TABLET.DR PO (10:16)
[2022-10-18] MEDS: cephALEXin 500 MG CAPSULE PO (10:16)
[2022-10-18] MEDS: Metoprolol Tartrate 50 MG TABLET PO ×2 (10:17→21:22)
[2022-10-18] MEDS: Atorvastatin Calcium 40 MG TABLET PO (10:18)
--- NOTE | 2022-10-18 10:29 | PC.NURSE ---
pt's daughter uzair ([phone]) [place] [facility] [place] updated [place] care. this rn called pt's daughter to update her that her mother has a uti and will be started on abt. the pt's daughter states that if any new med is being started to please update her first. pt is luis daniel fernandez and co-op.
--- NOTE | 2022-10-18 10:34 | MHC.EDTECH ---
Pt was offered a shower after taking her meds and was agreeable. While pt was in the shower, t/w changed over clean bed linens.
[2022-10-18] MEDS: glipiZIDE 10 MG TABLET PO (10:52)
--- NOTE | 2022-10-18 13:30 | PC.NURSE ---
PASTORAL SERVICE (MALE) AT BEDSIDE WITH NORM. PT IS LATVIAN SPEAKING. PT APPEARS TO HAVE A GOOD CONVERSATION
--- NOTE | 2022-10-18 13:49 | MHC.CARE ---
CARE Team called [employer] at 10am to provide initial clinical update. CARE Team followed up with [employer] at 130pm regarding clinical update. CARE Team faxed over clinical information reference #[id number]
--- NOTE | 2022-10-18 13:50 | MHC.CARE ---
CARE Team called Pts daughter Colleen ([phone]) for additional information as Pt has had minimal engagement. She report that since October 01 Pt has not been sleeping, Pt has been self isolating, tearful, anxious and difficulty managing her emotions. Over the past few days she has been not eating, increasingly isolative and priot to coming she couldn't control her emotions . Pts daughter reports hx of manic episodes/ depressive episodes stating if we don't get her help things are going to become like before . She reports she does not feel comfortable her coming home in this state. She reports Pt has not been taking her medications daily for some time and likely contributing to it. Though of note Pts family don't feel Pt needs her medication fci.
--- NOTE | 2022-10-18 17:10 | PC.NURSE ---
RN TO RN REPORT GIVEN TO ANGELA. PT/DAUGHTER AWARE OF PLAN OF CARE FOR TRANSFER TO [facility].
[2022-10-18 17:11] VITALS: BP 108/67; PULSE 96; RESP 16; TEMP 36.1; O2SAT 100
--- NOTE | 2022-10-18 17:28 | PC.NURSE ---
PT'S DAUGHTER JUST VISITED. IS AT BEDSIDE.
[2022-10-18 18:54] VITALS: BP 130/71; PULSE 94; RESP 18; TEMP 36.4; O2SAT 96
[2022-10-18 20:01] VITALS: BP 124/68; PULSE 97; RESP 17; TEMP 36.4; O2SAT 100
[2022-10-18 21:13] LABS: Glucose, Whole Blood 136 mg/dL (60-115)
--- NOTE | 2022-10-18 22:18 | PC.ADMIT ---
Stephanie is a [place] female with no significant understanding of Armenian, admitted for IPLOC from [facility] by her family DT progressive decompensation and exacerbation of symptoms RT non-adherence with psychiatric medications x 2 years. Last IPLOC was 2020. DX Bipolar Disorder. She was admitted on a CV, alert, oriented, cooperative and pleasant, MH assessment completed using director of community life gilma. denies SI/HI/AVH, Stephanie is ad-norma, gait steady, no Hx of falls, medical DX include HTN and NIDDM, POC was 136, HS medications taken without problems. Admission deferred to 10/19/22 day shift DT Julieta not having an available Norwegian interpretor, Stephanie also commented Too Much and requested to go to bed. No behavior issues, 15 min unit safety observation in place.
--- NOTE | 2022-10-19 07:47 | PC.NURSE ---
I assumed responsibility for this 62 year old female at 2300. Patient was a referral from the ER. nurse to nurse, collateral information obtained prior to admission. legal: CV. dx:bipolar d/o. Patient arrived on the unit at 1830. patient is Luxembourger speaking only. presents as guarded and appearing fearful. previous RN was unable to complete admission/risk assessments. treatment plan was initiated. family actively involved. has not been compliant with medications at home. poor sleep, racing thoughts. no drug/alcohol issues. medical hx of diabetes, htn, hyperlipidemia. patient has had previous hospitalization on [facility] in the past. legal forms signed. safety tool initiated.
[2022-10-19 08:00] VITALS: BP 132/76; PULSE 97; RESP 20; TEMP 36.5; O2SAT 96
[2022-10-19 08:24] LABS: Glucose, Whole Blood 101 mg/dL (60-115)
[2022-10-19] MEDS: glipiZIDE 10 MG TABLET PO (08:54)
[2022-10-19] MEDS: Divalproex Sodium ER 500 MG TAB.ER.24H PO (08:54)
[2022-10-19] MEDS: SITagliptin Phosphate 100 MG TABLET PO (08:54)
[2022-10-19] MEDS: Valsartan 320 MG TABLET PO (08:54)
[2022-10-19] MEDS: Aspirin Enteric Coated 81 MG TABLET.DR PO (08:54)
[2022-10-19] MEDS: metFORMIN HCl 1,000 MG TABLET 1000 MG PO ×2 (08:55→20:31)
[2022-10-19] MEDS: Metoprolol Tartrate 50 MG TABLET PO ×2 (08:56→20:31)
[2022-10-19 09:54] LABS: Estimated Average Glucose 217 mg/dL; Hemoglobin A1c % 9.2 %
[2022-10-19 10:07] LABS: Cholesterol 166 mg/dL; HDL Cholesterol 29 mg/dL; LDL Cholesterol Calculated 112 mg/dl; Magnesium 1.5 mg/dL (1.6-2.6); Triglycerides 125 mg/dL
[2022-10-19 10:23] LABS: Free T4 (Free Thyroxine) 1.22 ng/dL (0.71-1.85); Thyroid Stimulating Hormone 1.31 uIU/mL (0.32-4.0)
[2022-10-19 10:39] LABS: Folate 10.3 ng/mL (> or = 4.0); Vitamin B12 840 pg/mL (200-900)
[2022-10-19] MEDS: Atorvastatin Calcium 40 MG TABLET PO (10:41)
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
[2022-10-19] MEDS: Magnesium Hydrox/Alum Hydrox 30 ML ORAL.SUSP PO (16:52)
[2022-10-19 19:45] VITALS: BP 147/79; PULSE 100; RESP 18; TEMP 36.8; O2SAT 100
[2022-10-19] MEDS: Divalproex Sodium ER 500 MG TAB.ER.24H 1500 MG PO (20:30)
[2022-10-19 20:57] LABS: Glucose, Whole Blood 113 mg/dL (60-115)
[2022-10-20 08:00] VITALS: BP 118/92; PULSE 84; RESP 16; TEMP 36.7; O2SAT 100
[2022-10-20 08:34] LABS: Glucose, Whole Blood 58 mg/dL (60-115)
[2022-10-20] MEDS: Atorvastatin Calcium 40 MG TABLET PO (08:52)
[2022-10-20] MEDS: SITagliptin Phosphate 100 MG TABLET PO (08:52)
[2022-10-20] MEDS: metFORMIN HCl 1,000 MG TABLET 1000 MG PO ×2 (08:52→20:29)
[2022-10-20] MEDS: Valsartan 320 MG TABLET PO (08:52)
[2022-10-20] MEDS: Metoprolol Tartrate 50 MG TABLET PO ×2 (08:52→20:29)
[2022-10-20] MEDS: glipiZIDE 10 MG TABLET PO (08:52)
[2022-10-20] MEDS: Aspirin Enteric Coated 81 MG TABLET.DR PO (08:52)
[2022-10-20 09:48] LABS: Glucose, Whole Blood 132 mg/dL (60-115)
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
[2022-10-20 18:00] VITALS: BP 134/76; PULSE 99; RESP 18; TEMP 36.3; O2SAT 99
[2022-10-20] MEDS: Divalproex Sodium ER 500 MG TAB.ER.24H 1500 MG PO (20:28)
[2022-10-20] MEDS: QUEtiapine Fumarate 100 MG TABLET PO (20:29)
[2022-10-20] MEDS: LORazepam 1 MG TABLET 2 MG PO (20:29)
[2022-10-20 20:43] LABS: Glucose, Whole Blood 87 mg/dL (60-115)
[2022-10-21 02:00] LABS: Appearance Urine Clear; Color Urine Yellow; Glucose Urine UA Negative (Negative); Leukocyte Esterase Urine Negative (Negative); Nitrite Urine Negative (Negative); PH 5.5 (5.0-9.0); Specific Gravity - Urine 1.015 (1.005-1.025); Urine Blood Negative (Negative); Urine Ketones Trace mg/dL (Negative); Urine Protein Negative (Neg-Trace)
[2022-10-21 09:00] VITALS: BP 146/84; PULSE 68; RESP 16; TEMP 36.9; O2SAT 96
[2022-10-21 09:19] LABS: Glucose, Whole Blood 34 mg/dL (60-115)
[2022-10-21 09:19] LABS: Glucose, Whole Blood 56 mg/dL (60-115)
[2022-10-21 09:58] LABS: Glucose, Whole Blood 63 mg/dL (60-115)
--- NOTE | 2022-10-21 10:45 | PC.NURSE ---
At 855 am pt alert in bed, FBS 34 and symptomatic with dizziness, sweat through her clothes and linens prior to meds/ meal. Repeat BS 56 after 8 oz apple juice. Repeat BS [address] Solares informed. Hosp consult ordered. Meds held awaiting hosp consult.
[2022-10-21] MEDS: Metoprolol Tartrate 50 MG TABLET PO ×2 (10:54→20:40)
[2022-10-21] MEDS: Valsartan 320 MG TABLET PO (10:54)
[2022-10-21] MEDS: Atorvastatin Calcium 40 MG TABLET PO (10:54)
[2022-10-21] MEDS: Aspirin Enteric Coated 81 MG TABLET.DR PO (10:54)
--- NOTE | 2022-10-21 11:22 | PM.EVENT ---
Event Note Date of Service: 10/21/22 Event Note: Medical consult for hypoglycemia. Patient is a type 2 diabetic on metformin, Januvia, and glipizide. Patient states she has been mostly compliant with her medication in the community. Patient's POC was originally elevated at 241 at time of admission but dipped into the 50s yesterday morning and then to the 30s this morning. Patient was symptomatic prior to medication and meals. A1c 9.2. Staff report that patient has been eating all of her meals. Hold glipizide for now, continue metformin and Januvia. If patient's glucose levels consistently rise above 200 can resume glipizide. Thank you for allowing us to participate in the care of this patient. Signing off at this time. Please let us know if there are any acute complaints or questions. Time Spent With Patient Time: Total time managing care of this patient today ____ minutes.
[2022-10-21] MEDS: SITagliptin Phosphate 100 MG TABLET PO (11:27)
[2022-10-21] MEDS: metFORMIN HCl 1,000 MG TABLET 1000 MG PO ×2 (11:27→20:40)
--- NOTE | 2022-10-21 12:30 | PC.NURSE ---
At 1130 Oli OLSON ordered give Metformin and januvia, hold glipizide. Meds administered per order
[2022-10-21 12:38] LABS: Glucose, Whole Blood 81 mg/dL (60-115)
--- NOTE | 2022-10-21 13:42 | P.PNPSI_ITS ---
Subjective Subjective Date of Service: 10/21/22 Reason For Visit: Bipolar Diosorder Interim History: seen x 2 today, with robo-septic tank installer. reports her mood is OK and she slept well last night. numerous questions about her medications regimen and discharge timing. per staff, dep/anx average. slept well last night. FSBS 34 this morning. Mental Status Exam Mental Status Exam Narrative: Appearance: casually groomed, fair hygiene, in NAD Behavior: calm, cooperative Speech: assessed through septic tank installer- clear, normal rate, spontaneous Psychomotor: no agitation or retardation noted TP: linear and logical TC: no delusions or paranoia expressed Mood: ok Affect: flexible, normo-intense, non-labile SI/HI: none expressed VH/AH: none expressed Insight/judgment: fair x 2. Memory/cog: alert ,oriented x 3. Diagnostics Vital Signs (24Hr): Vital Signs - 24 hr 10/20/22 18:00 10/21/22 09:00 Temperature 97.3 F 98.5 F Pulse Rate 99 68 Respiratory Rate 18 16 Blood Pressure 134/76 146/84 H Pulse Oximetry 99 96 Oxygen Delivery Method Room Air Room Air BMI result Body Mass Index 31.8 Labs 10/16/22 13:47 10/16/22 13:47 Labs: Laboratory Results - last 48 hr 10/19/22 10/20/22 10/20/22 20:29 08:28 09:44 POC Glucose 113 58 L* 132 H Urine Color Urine Appearance Urine pH Ur Specific [place] Urine Protein Urine Glucose (UA) Urine Ketones Urine Blood Urine Nitrite Ur Leukocyte Esterase 10/20/22 10/21/22 10/21/22 20:26 01:10 08:55 POC Glucose 87 34 L* Urine Color Yellow Urine Appearance Clear Urine pH 5.5 Ur Specific [place] 1.015 Urine Protein Negative Urine Glucose (UA) Negative Urine Ketones Trace Urine Blood Negative Urine Nitrite Negative Ur Leukocyte Esterase Negative 10/21/22 10/21/22 10/21/22 09:11 09:51 12:34 POC Glucose 56 L* 63 81 Urine Color Urine Appearance Urine pH Ur Specific [place] Urine Protein Urine Glucose (UA) Urine Ketones Urine Blood Urine Nitrite Ur Leukocyte Esterase Medications Medications Current Medications Acetaminophen (Acetaminophen 325 Mg Tablet) 650 mg PO Q6H PRN PRN Reason: Headache/Pain Mild Scale (1-3) Al Hydroxide/Mg Hydroxide (Magnesium Hydrox/Alum Hydrox 30 Ml Oral.Susp) 30 ml PO Q6H PRN PRN Reason: Heartburn/Nausea Last Admin: 10/19/22 16:52 Dose: 30 ml Aspirin (Aspirin Enteric Coated 81 Mg Tablet.Dr) 81 mg PO DAILY [facility] Last Admin: 10/21/22 10:54 Dose: 81 mg Atorvastatin Calcium (Atorvastatin Calcium 40 Mg Tablet) 40 mg PO DAILY [facility] Last Admin: 10/21/22 10:54 Dose: 40 mg Divalproex Sodium (Divalproex Sodium Er 500 Mg Tab.Er.24h) 1,500 mg PO BEDTIME [facility] Last Admin: 10/20/22 20:28 Dose: 1,500 mg Glipizide (Glipizide 10 Mg Tablet) 10 mg PO DAILY [facility] Last Admin: 10/21/22 11:28 Dose: Not Given Glucose (Glucose Gel 15 Gm Gel..Gram.) 15 gm PO Q15M PRN PRN Reason: per Hypoglycemia Standing Ord. Hydroxyzine HCl (Hydroxyzine Hcl 25 Mg Tablet) 25 mg PO Q6H PRN PRN Reason: Anxiety Lorazepam (Lorazepam 1 Mg Tablet) 2 mg PO BEDTIME PRN PRN Reason: insomnia Last Admin: 10/20/22 20:29 Dose: 2 mg Magnesium Hydroxide (Milk Of Magnesia 30 Ml Oral.Susp) 30 ml PO DAILY PRN PRN Reason: Constipation Metformin HCl (Metformin Hcl 1,000 Mg Tablet) 1,000 mg PO BID [facility] Last Admin: 10/21/22 11:27 Dose: 1,000 mg Metoprolol Tartrate (Metoprolol Tartrate 50 Mg Tablet) 50 mg PO BID [facility]; Protocol Last Admin: 10/21/22 10:54 Dose: 50 mg Quetiapine Fumarate (Quetiapine Fumarate 50 Mg Tablet) 50 mg PO Q6H PRN PRN Reason: agitation Last Admin: 10/17/22 20:17 Dose: 50 mg Quetiapine Fumarate (Quetiapine Fumarate 100 Mg Tablet) 100 mg PO BEDTIME PRN PRN Reason: Insomnia Quetiapine Fumarate (Quetiapine Fumarate 100 Mg Tablet) 100 mg PO BEDTIME [facility] Last Admin: 10/20/22 20:29 Dose: 100 mg Sitagliptin Phosphate (Sitagliptin Phosphate 100 Mg Tablet) 100 mg PO DAILY [facility] Last Admin: 10/21/22 11:27 Dose: 100 mg Valsartan (Valsartan 320 Mg Tablet) 320 mg PO DAILY [facility]; Protocol Last Admin: 10/21/22 10:54 Dose: 320 mg Allergies Allergies Allergy/AdvReac Type Severity Reaction Status Date / Time No Known Allergies Allergy Unverified 12/13/19 18:58 [No Known Allergies*] Assessment & Plan Assessment & Plan (1) Bipolar I disorder: Status: Acute Code(s): F31.9 - Bipolar disorder, unspecified (2) Acute UTI: Status: Acute Code(s): N39.0 - Urinary tract infection, site not specified Plan 10/19: continue VPA 1500 mg daily, schedule all at HS. otherwise continue outpt meds. 10/20: schedule seroquel 100 at HS, PRN ativan 2 mg added for HS as well. otherwise continue current mgmt. investigate need for UTI Tx. 10/21: FSBS 34 this morning, diet changed from diabetic to regular and hospitalist consult placed. pt slept very well last night. continue current mgmt and check VPA level/labs after 5 days. discharge planning. F/U UA NEG for infection. Reason for continued inpatient stay Substantial Risk for: inability to function and rapid decompensation Time Spent With Patient Time: Total time managing care of this patient today __35__ minutes.
--- NOTE | 2022-10-21 16:25 | MHC.SL.SWA ---
Speech Pathologist Impression: Risk of Aspiration Due to: None Dysphasia Diet Status: Liquid Consistency and Strategies for Safe Swallow: Liquid Intake Recommendation: Thin Liquid Intake Strategies: Unrestricted Solid Food Consistency: Dietary Recommendations: Regular Additional Modifications to Solid Foods: Encourage patient to take small bites and sips, and to alternated liquids with solids. Recommend patient avoid tough, difficult to chew solids, or food that breaks or comes in small pieces. Oral Medication Intake: Whole with Liquid Please contact the pharmacy regarding appropriate crushable or liquid drug formulations that are available whenever modified delivery is recommended. Compensatory Strategies and Precautions to be Taken for Safe Swallow: Sitting Upright (90 deg) Liquids from Cup Liquids from Straw Small Bites and Sips Alternate Liquids/Solids Avoid Specific Foods Supervision While Eating and Drinking for Safe Swallow: None Needed Foods to Avoid: Tough, difficult to chew solids, food that breaks into or comes in small pieces (e.g. rice). Swallowing Recommended Treatments: Recommendation for Speech: Inpatient Speech Therapy Comment: Patient presents with a complaint of difficulty swallowing, likely related to dentures which she reported were old and in need of replacement. ON assessment, patient did evidence some difficulty with masticating more solid foods, with a prolonged period of chewing and some residual in mouth after swallowing. All other aspects of swallow function is WFL Recommend Patient continue on Regular Diet with Thin Liquids, pills whole with liquid. Discussed with patient making good choices from Regular Menu, avoiding tough to chew solids, rice and other foods that may be difficult to chew or get stuck in dentures. Discussed with patient strategy of alternating liquids and solids, chewing food thoroughly. Recommendations communicated by secure text to MD and RD in person with RN. CONTRACT WRITER to follow up X1 for toleration of diet use/reinforcement of strategies. Frequency/Duration: Date Range for Service Req: Timeline to reassess: Case Consultant Clinican/Clinical Fellow: No Supervisory Statement: I have reviewed and agree with the student/clinical fellow's documentation: N/A Speech Language Pathologist: Tiff Arce M.A., CCC-CONTRACT WRITER
[2022-10-21 19:56] LABS: Glucose, Whole Blood 142 mg/dL (60-115)
[2022-10-21 20:15] VITALS: BP 129/67; PULSE 101; RESP 18; TEMP 36.6; O2SAT 99
[2022-10-21] MEDS: LORazepam 1 MG TABLET 2 MG PO (20:39)
[2022-10-21] MEDS: Divalproex Sodium ER 500 MG TAB.ER.24H 1500 MG PO (20:39)
[2022-10-21] MEDS: QUEtiapine Fumarate 100 MG TABLET PO (20:40)
[2022-10-21] MEDS: Milk of Magnesia 30 ML ORAL.SUSP PO (20:45)
[2022-10-22 06:04] LABS: Glucose, Whole Blood 53 mg/dL (60-115)
[2022-10-22 08:17] LABS: Glucose, Whole Blood 81 mg/dL (60-115)
[2022-10-22 08:30] VITALS: BP 123/68; PULSE 88; RESP 16; TEMP 36.4; O2SAT 97
[2022-10-22] MEDS: Valsartan 320 MG TABLET PO (09:32)
[2022-10-22] MEDS: Metoprolol Tartrate 50 MG TABLET PO ×2 (09:32→20:32)
[2022-10-22] MEDS: Atorvastatin Calcium 40 MG TABLET PO (09:34)
[2022-10-22] MEDS: Aspirin Enteric Coated 81 MG TABLET.DR PO (09:34)
[2022-10-22] MEDS: metFORMIN HCl 1,000 MG TABLET 1000 MG PO ×2 (09:34→20:32)
[2022-10-22] MEDS: SITagliptin Phosphate 100 MG TABLET PO (09:38)
--- NOTE | 2022-10-22 13:01 | HO.PSYCHPN ---
Subjective Subjective Date of Service: 10/22/22 Reason For Visit: Bipolar Diosorder Interim History: seen with WESLEY Iglesias and [employer]. calm, cooperative. feeling under-stimulated here due to being fijian-speaking only. says she is sleeping well. per staff, swallow eval completed. safe. no SI/HI/AVH. eating and sleeping well. Mental Status Exam Mental Status Exam Narrative: Appearance: casually groomed, fair hygiene, in NAD Behavior: calm, cooperative Speech: assessed through script worker- clear, normal rate, spontaneous Psychomotor: no agitation or retardation noted TP: linear and logical TC: no delusions or paranoia expressed Mood: ok Affect: flexible, normo-intense, non-labile SI/HI: none expressed VH/AH: none expressed Insight/judgment: fair x 2. Memory/cog: alert ,oriented x 3. Diagnostics Vital Signs (24Hr): Vital Signs - 24 hr 10/21/22 20:15 10/22/22 08:30 Temperature 97.9 F 97.6 F Pulse Rate 101 H 88 Respiratory Rate 18 16 Blood Pressure 129/67 123/68 Pulse Oximetry 99 97 Oxygen Delivery Method Room Air Room Air BMI result Body Mass Index 31.8 Labs 10/16/22 13:47 10/16/22 13:47 Labs: Laboratory Results - last 48 hr 10/20/22 10/20/22 10/21/22 08:29 20:26 01:10 POC Glucose 53 L* 87 Urine Color Yellow Urine Appearance Clear Urine pH 5.5 Ur Specific [place] 1.015 Urine Protein Negative Urine Glucose (UA) Negative Urine Ketones Trace Urine Blood Negative Urine Nitrite Negative Ur Leukocyte Esterase Negative 10/21/22 10/21/22 10/21/22 08:55 09:11 09:51 POC Glucose 34 L* 56 L* 63 Urine Color Urine Appearance Urine pH Ur Specific [place] Urine Protein Urine Glucose (UA) Urine Ketones Urine Blood Urine Nitrite Ur Leukocyte Esterase 10/21/22 10/21/22 10/22/22 12:34 19:51 08:00 POC Glucose 81 142 H 81 Urine Color Urine Appearance Urine pH Ur Specific [place] Urine Protein Urine Glucose (UA) Urine Ketones Urine Blood Urine Nitrite Ur Leukocyte Esterase Medications Medications Current Medications Acetaminophen (Acetaminophen 325 Mg Tablet) 650 mg PO Q6H PRN PRN Reason: Headache/Pain Mild Scale (1-3) Al Hydroxide/Mg Hydroxide (Magnesium Hydrox/Alum Hydrox 30 Ml Oral.Susp) 30 ml PO Q6H PRN PRN Reason: Heartburn/Nausea Last Admin: 10/19/22 16:52 Dose: 30 ml Aspirin (Aspirin Enteric Coated 81 Mg Tablet.Dr) 81 mg PO DAILY [facility] Last Admin: 10/22/22 09:34 Dose: 81 mg Atorvastatin Calcium (Atorvastatin Calcium 40 Mg Tablet) 40 mg PO DAILY [facility] Last Admin: 10/22/22 09:34 Dose: 40 mg Divalproex Sodium (Divalproex Sodium Er 500 Mg Tab.Er.24h) 1,500 mg PO BEDTIME [facility] Last Admin: 10/21/22 20:39 Dose: 1,500 mg Glipizide (Glipizide 10 Mg Tablet) 10 mg PO DAILY [facility] Last Admin: 10/22/22 09:35 Dose: Not Given Glucose (Glucose Gel 15 Gm Gel..Gram.) 15 gm PO Q15M PRN PRN Reason: per Hypoglycemia Standing Ord. Hydroxyzine HCl (Hydroxyzine Hcl 25 Mg Tablet) 25 mg PO Q6H PRN PRN Reason: Anxiety Lorazepam (Lorazepam 1 Mg Tablet) 1 mg PO BEDTIME [facility] Stop: 10/22/22 21:01 Lorazepam (Lorazepam 0.5 Mg Tablet) 0.5 mg PO BEDTIME [facility] Stop: 10/23/22 21:01 Magnesium Hydroxide (Milk Of Magnesia 30 Ml Oral.Susp) 30 ml PO DAILY PRN PRN Reason: Constipation Last Admin: 10/21/22 20:45 Dose: 30 ml Metformin HCl (Metformin Hcl 1,000 Mg Tablet) 1,000 mg PO BID [facility] Last Admin: 10/22/22 09:34 Dose: 1,000 mg Metoprolol Tartrate (Metoprolol Tartrate 50 Mg Tablet) 50 mg PO BID [facility]; Protocol Last Admin: 10/22/22 09:32 Dose: 50 mg Quetiapine Fumarate (Quetiapine Fumarate 50 Mg Tablet) 50 mg PO Q6H PRN PRN Reason: agitation Last Admin: 10/17/22 20:17 Dose: 50 mg Quetiapine Fumarate (Quetiapine Fumarate 100 Mg Tablet) 100 mg PO BEDTIME PRN PRN Reason: Insomnia Quetiapine Fumarate (Quetiapine Fumarate 100 Mg Tablet) 100 mg PO BEDTIME [facility] Last Admin: 10/21/22 20:40 Dose: 100 mg Sitagliptin Phosphate (Sitagliptin Phosphate 100 Mg Tablet) 100 mg PO DAILY [facility] Last Admin: 10/22/22 09:38 Dose: 100 mg Valsartan (Valsartan 320 Mg Tablet) 320 mg PO DAILY [facility]; Protocol Last Admin: 10/22/22 09:32 Dose: 320 mg Allergies Allergies Allergy/AdvReac Type Severity Reaction Status Date / Time No Known Allergies Allergy Unverified 12/13/19 18:58 [No Known Allergies*] Assessment & Plan Assessment & Plan (1) Bipolar I disorder: Status: Acute Code(s): F31.9 - Bipolar disorder, unspecified (2) Acute UTI: Status: Acute Code(s): N39.0 - Urinary tract infection, site not specified Plan 10/19: continue VPA 1500 mg daily, schedule all at HS. otherwise continue outpt meds. 10/20: schedule seroquel 100 at HS, PRN ativan 2 mg added for HS as well. otherwise continue current mgmt. investigate need for UTI Tx. 10/21: FSBS 34 this morning, diet changed from diabetic to regular and hospitalist consult placed. pt slept very well last night. continue current mgmt and check VPA level/labs after 5 days. discharge planning. F/U UA NEG for infection. 10/22: improved FSBS, holding glipizide for now.feeling heavy and slowed. taper off of HS ativan (ordered), check labs tuesday evening including VPA level and adjust dosing accordingly on tuesday. decrease seroquel at HS if pt continues to feel too groggy in the morning. Reason for continued inpatient stay Substantial Risk for: inability to function and rapid decompensation Time Spent With Patient Time: Total time managing care of this patient today _35___ minutes.
[2022-10-22 20:02] LABS: Glucose, Whole Blood 158 mg/dL (60-115)
[2022-10-22 20:16] VITALS: BP 139/72; PULSE 104; RESP 18; TEMP 36.6; O2SAT 96
[2022-10-22] MEDS: Magnesium Hydrox/Alum Hydrox 30 ML ORAL.SUSP PO (20:28)
[2022-10-22] MEDS: LORazepam 1 MG TABLET PO (20:32)
[2022-10-22] MEDS: QUEtiapine Fumarate 100 MG TABLET PO (20:32)
[2022-10-22] MEDS: Divalproex Sodium ER 500 MG TAB.ER.24H 1500 MG PO (20:33)
[2022-10-23 08:35] LABS: Glucose, Whole Blood 101 mg/dL (60-115)
[2022-10-23 09:02] VITALS: RESP 18; O2SAT 97
[2022-10-23] MEDS: Valsartan 320 MG TABLET PO (09:03)
[2022-10-23] MEDS: metFORMIN HCl 1,000 MG TABLET 1000 MG PO ×2 (09:03→20:37)
[2022-10-23] MEDS: Metoprolol Tartrate 50 MG TABLET PO ×2 (09:03→20:37)
[2022-10-23] MEDS: Aspirin Enteric Coated 81 MG TABLET.DR PO (09:03)
[2022-10-23] MEDS: SITagliptin Phosphate 100 MG TABLET PO (09:03)
[2022-10-23] MEDS: Atorvastatin Calcium 40 MG TABLET PO (09:03)
[2022-10-23 09:42] LABS: Creatinine Clr Calc Pharmacy 83.3; Estimated Glomerular Filt Rate > 60
--- NOTE | 2022-10-23 11:08 | P.PNPSI_ITS ---
Subjective Subjective Date of Service: 10/23/22 Reason For Visit: Bipolar Corysotrisher Subjective Notes: Conditional Voluntary Interim History: The nursing staff reported the patient had been compliant with treatment, she had turned visitors yesterday, her family and she denies auditory hallucinations safe in the unit, she was seen watching TV but she did not attend to groups. On interview the patient denies new symptoms she states that she is feeling fine, compliant with treatment. Mental Status Exam Mental Status Exam Patient Appearance: Appropriate Patient Orientation: Person and Situation Level of Consciousness: Awake and Appropriate Patient Behavior: Guarded and Passive Mood Description: Withdrawn Affect Description: Constricted Patient Cognition Impaired: Yes Ability to Follow Directions: Good Speech Pattern: Clear Hallucinations: None Delusions: Not Present Thought Process: Distracted and Slowed Thinking Thought Content: positive for [place] and positive for Circumstantial Judgement: Fair Diagnostics Vital Signs (24Hr): Vital Signs - 24 hr 10/22/22 20:16 10/23/22 09:02 Temperature 97.8 F Pulse Rate 104 H Respiratory Rate 18 18 Blood Pressure 139/72 Pulse Oximetry 96 97 Oxygen Delivery Method Room Air Room Air BMI result Body Mass Index 31.8 Labs 10/16/22 13:47 10/23/22 09:17 Labs: Laboratory Results - last 48 hr 10/20/22 10/21/22 10/21/22 08:29 12:34 19:51 Creatinine Estim Creat Clear Calc Estimated GFR POC Glucose 53 L* 81 142 H 10/22/22 10/22/22 10/23/22 08:00 19:50 08:26 Creatinine Estim Creat Clear Calc Estimated GFR POC Glucose 81 158 H 101 10/23/22 09:17 Creatinine 0.78 Estim Creat Clear Calc 83.3 Estimated GFR > 60 POC Glucose Medications Medications Current Medications Acetaminophen (Acetaminophen 325 Mg Tablet) 650 mg PO Q6H PRN PRN Reason: Headache/Pain Mild Scale (1-3) Al Hydroxide/Mg Hydroxide (Magnesium Hydrox/Alum Hydrox 30 Ml Oral.Susp) 30 ml PO Q6H PRN PRN Reason: Heartburn/Nausea Last Admin: 10/22/22 20:28 Dose: 30 ml Aspirin (Aspirin Enteric Coated 81 Mg Tablet.) 81 mg PO DAILY [facility] Last Admin: 10/23/22 09:03 Dose: 81 mg Atorvastatin Calcium (Atorvastatin Calcium 40 Mg Tablet) 40 mg PO DAILY [facility] Last Admin: 10/23/22 09:03 Dose: 40 mg Divalproex Sodium (Divalproex Sodium Er 500 Mg Tab.Er.24h) 1,500 mg PO BEDTIME [facility] Last Admin: 10/22/22 20:33 Dose: 1,500 mg Glipizide (Glipizide 10 Mg Tablet) 10 mg PO DAILY [facility] Last Admin: 10/22/22 09:35 Dose: Not Given Glucose (Glucose Gel 15 Gm Gel..Gram.) 15 gm PO Q15M PRN PRN Reason: per Hypoglycemia Standing Ord. Hydroxyzine HCl (Hydroxyzine Hcl 25 Mg Tablet) 25 mg PO Q6H PRN PRN Reason: Anxiety Lorazepam (Lorazepam 0.5 Mg Tablet) 0.5 mg PO BEDTIME [facility] Stop: 10/23/22 21:01 Magnesium Hydroxide (Milk Of Magnesia 30 Ml Oral.Susp) 30 ml PO DAILY PRN PRN Reason: Constipation Last Admin: 10/21/22 20:45 Dose: 30 ml Metformin HCl (Metformin Hcl 1,000 Mg Tablet) 1,000 mg PO BID [facility] Last Admin: 10/23/22 09:03 Dose: 1,000 mg Metoprolol Tartrate (Metoprolol Tartrate 50 Mg Tablet) 50 mg PO BID [facility]; Protocol Last Admin: 10/23/22 09:03 Dose: 50 mg Quetiapine Fumarate (Quetiapine Fumarate 50 Mg Tablet) 50 mg PO Q6H PRN PRN Reason: agitation Last Admin: 10/17/22 20:17 Dose: 50 mg Quetiapine Fumarate (Quetiapine Fumarate 100 Mg Tablet) 100 mg PO BEDTIME PRN PRN Reason: Insomnia Quetiapine Fumarate (Quetiapine Fumarate 100 Mg Tablet) 100 mg PO BEDTIME [facility] Last Admin: 10/22/22 20:32 Dose: 100 mg Sitagliptin Phosphate (Sitagliptin Phosphate 100 Mg Tablet) 100 mg PO DAILY [facility] Last Admin: 10/23/22 09:03 Dose: 100 mg Valsartan (Valsartan 320 Mg Tablet) 320 mg PO DAILY [facility]; Protocol Last Admin: 10/23/22 09:03 Dose: 320 mg Allergies Allergies Allergy/AdvReac Type Severity Reaction Status Date / Time No Known Allergies Allergy Unverified 12/13/19 18:58 [No Known Allergies*] Assessment & Plan Assessment & Plan (1) Bipolar I disorder: Status: Acute Code(s): F31.9 - Bipolar disorder, unspecified (2) Acute UTI: Status: Acute Code(s): N39.0 - Urinary tract infection, site not specified Plan 10/19: continue VPA 1500 mg daily, schedule all at HS. otherwise continue outpt meds. 10/20: schedule seroquel 100 at HS, PRN ativan 2 mg added for HS as well. otherwise continue current mgmt. investigate need for UTI Tx. 10/21: FSBS 34 this morning, diet changed from diabetic to regular and hospitalist consult placed. pt slept very well last night. continue current mgmt and check VPA level/labs after 5 days. discharge planning. F/U UA NEG for infection. 10/22: improved FSBS, holding glipizide for now.feeling heavy and slowed. taper off of HS ativan (ordered), check labs tuesday evening including VPA level and adjust dosing accordingly on tuesday. decrease seroquel at HS if pt continues to feel too groggy in the morning. 10/23 keep same treatment no changes in her mental status, we will recheck her Depakote level tomorrow and adjust accordingly. Reason for continued inpatient stay Substantial Risk for: inability to function, rapid decompensation and med/psych decompensation Time Spent With Patient Time: Total time managing care of this patient today __20__ minutes.
[2022-10-23 20:21] LABS: Glucose, Whole Blood 168 mg/dL (60-115)
[2022-10-23] MEDS: QUEtiapine Fumarate 100 MG TABLET PO (20:36)
[2022-10-23] MEDS: LORazepam 0.5 MG TABLET PO (20:37)
[2022-10-23] MEDS: Divalproex Sodium ER 500 MG TAB.ER.24H 1500 MG PO (20:37)
[2022-10-23 20:48] VITALS: BP 119/61; PULSE 100; RESP 18; TEMP 36.6; O2SAT 100
[2022-10-24 06:00] VITALS: BP 128/76; PULSE 93; RESP 18; TEMP 36.4; O2SAT 98
[2022-10-24 08:54] LABS: Glucose, Whole Blood 91 mg/dL (60-115)
[2022-10-24] MEDS: metFORMIN HCl 1,000 MG TABLET 1000 MG PO ×2 (09:16→21:15)
[2022-10-24] MEDS: SITagliptin Phosphate 100 MG TABLET PO (09:16)
[2022-10-24] MEDS: Atorvastatin Calcium 40 MG TABLET PO (09:16)
[2022-10-24] MEDS: Valsartan 320 MG TABLET PO (09:16)
[2022-10-24] MEDS: Aspirin Enteric Coated 81 MG TABLET.DR PO (09:16)
[2022-10-24] MEDS: Metoprolol Tartrate 50 MG TABLET PO ×2 (09:16→21:15)
--- NOTE | 2022-10-24 10:20 | P.PNPSI_ITS ---
Subjective Subjective Date of Service: 10/24/22 Reason For Visit: Bipolar Corysotrisher Subjective Notes: Conditional Voluntary Interim History: The nursing staff reported the patient had been visible in the unit, attending groups, no behavior disturbances. On interview with her she reported that she is slightly sedated. I review that she had blood work from today at 20:00 so I changed for tomorrow morning. On interview the patient denies new symptoms she complains of slight over- sedation. We will recheck blood work and take decisions tomorrow morning Mental Status Exam Mental Status Exam Patient Appearance: Well Grooomed and Appropriate Patient Orientation: Person and Situation Level of Consciousness: Awake and Appropriate Patient Behavior: Guarded and Passive Mood Description: Calm Affect Description: Constricted Patient Cognition Impaired: Yes Ability to Follow Directions: Good Speech Pattern: Clear Hallucinations: None Delusions: Not Present Thought Process: Linear Thought Content: positive for Circumstantial Judgement: Fair Diagnostics Vital Signs (24Hr): Vital Signs - 24 hr 10/23/22 20:48 10/24/22 06:00 Temperature 97.8 F 97.6 F Pulse Rate 100 93 Respiratory Rate 18 18 Blood Pressure 119/61 128/76 Pulse Oximetry 100 98 Oxygen Delivery Method Room Air Room Air BMI result Body Mass Index 31.8 Labs 10/16/22 13:47 10/23/22 09:17 Labs: Laboratory Results - last 48 hr 10/22/22 10/23/22 10/23/22 19:50 08:26 09:17 Creatinine 0.78 Estim Creat Clear Calc 83.3 Estimated GFR > 60 POC Glucose 158 H 101 10/23/22 10/24/22 20:01 08:47 Creatinine Estim Creat Clear Calc Estimated GFR POC Glucose 168 H 91 Medications Medications Current Medications Acetaminophen (Acetaminophen 325 Mg Tablet) 650 mg PO Q6H PRN PRN Reason: Headache/Pain Mild Scale (1-3) Al Hydroxide/Mg Hydroxide (Magnesium Hydrox/Alum Hydrox 30 Ml Oral.Susp) 30 ml PO Q6H PRN PRN Reason: Heartburn/Nausea Last Admin: 10/22/22 20:28 Dose: 30 ml Aspirin (Aspirin Enteric Coated 81 Mg Tablet.) 81 mg PO DAILY [facility] Last Admin: 10/24/22 09:16 Dose: 81 mg Atorvastatin Calcium (Atorvastatin Calcium 40 Mg Tablet) 40 mg PO DAILY [facility] Last Admin: 10/24/22 09:16 Dose: 40 mg Divalproex Sodium (Divalproex Sodium Er 500 Mg Tab.Er.24h) 1,500 mg PO BEDTIME [facility] Last Admin: 10/23/22 20:37 Dose: 1,500 mg Glipizide (Glipizide 10 Mg Tablet) 10 mg PO DAILY [facility] Last Admin: 10/22/22 09:35 Dose: Not Given Glucose (Glucose Gel 15 Gm Gel..Gram.) 15 gm PO Q15M PRN PRN Reason: per Hypoglycemia Standing Ord. Hydroxyzine HCl (Hydroxyzine Hcl 25 Mg Tablet) 25 mg PO Q6H PRN PRN Reason: Anxiety Magnesium Hydroxide (Milk Of Magnesia 30 Ml Oral.Susp) 30 ml PO DAILY PRN PRN Reason: Constipation Last Admin: 10/21/22 20:45 Dose: 30 ml Metformin HCl (Metformin Hcl 1,000 Mg Tablet) 1,000 mg PO BID [facility] Last Admin: 10/24/22 09:16 Dose: 1,000 mg Metoprolol Tartrate (Metoprolol Tartrate 50 Mg Tablet) 50 mg PO BID [facility]; Protocol Last Admin: 10/24/22 09:16 Dose: 50 mg Quetiapine Fumarate (Quetiapine Fumarate 50 Mg Tablet) 50 mg PO Q6H PRN PRN Reason: agitation Last Admin: 10/17/22 20:17 Dose: 50 mg Quetiapine Fumarate (Quetiapine Fumarate 100 Mg Tablet) 100 mg PO BEDTIME PRN PRN Reason: Insomnia Quetiapine Fumarate (Quetiapine Fumarate 100 Mg Tablet) 100 mg PO BEDTIME [facility] Last Admin: 10/23/22 20:36 Dose: 100 mg Sitagliptin Phosphate (Sitagliptin Phosphate 100 Mg Tablet) 100 mg PO DAILY [facility] Last Admin: 10/24/22 09:16 Dose: 100 mg Valsartan (Valsartan 320 Mg Tablet) 320 mg PO DAILY [facility]; Protocol Last Admin: 10/24/22 09:16 Dose: 320 mg Allergies Allergies Allergy/AdvReac Type Severity Reaction Status Date / Time No Known Allergies Allergy Unverified 12/13/19 18:58 [No Known Allergies*] Assessment & Plan Assessment & Plan (1) Bipolar I disorder: Status: Acute Code(s): F31.9 - Bipolar disorder, unspecified (2) Acute UTI: Status: Acute Code(s): N39.0 - Urinary tract infection, site not specified Plan 10/19: continue VPA 1500 mg daily, schedule all at HS. otherwise continue outpt meds. 10/20: schedule seroquel 100 at HS, PRN ativan 2 mg added for HS as well. otherwise continue current mgmt. investigate need for UTI Tx. 10/21: FSBS 34 this morning, diet changed from diabetic to regular and hospitalist consult placed. pt slept very well last night. continue current mgmt and check VPA level/labs after 5 days. discharge planning. F/U UA NEG for infection. 10/22: improved FSBS, holding glipizide for now.feeling heavy and slowed. taper off of HS ativan (ordered), check labs tuesday evening including VPA level and adjust dosing accordingly on tuesday. decrease seroquel at HS if pt continues to feel too groggy in the morning. 10/23 keep same treatment no changes in her mental status, we will recheck her Depakote level tomorrow and adjust accordingly. 10/24 blood work for tomorrow morning no changes in her mental status she looks much better Reason for continued inpatient stay Substantial Risk for: inability to function, rapid decompensation and med/psych decompensation Time Spent With Patient Time: Total time managing care of this patient today __20 __ minutes.
[2022-10-24 20:27] LABS: Glucose, Whole Blood 173 mg/dL (60-115)
[2022-10-24 20:30] VITALS: BP 147/73; PULSE 96; RESP 18; TEMP 36.6; O2SAT 98
[2022-10-24] MEDS: Divalproex Sodium ER 500 MG TAB.ER.24H 1500 MG PO (21:15)
[2022-10-24] MEDS: QUEtiapine Fumarate 100 MG TABLET PO (21:15)
[2022-10-25 07:56] LABS: MANUAL DIFF FLAG NO
[2022-10-25 07:59] LABS: Basophils Percent Auto 0.5 % (0-2); Eosinophils Absolute Auto 0.1 X10*3/uL (0.0-0.4); Eosinophils Percent Auto 1.8 % (0-4); Hematocrit 39.8 % (37.0-47.0); Hemoglobin 12.8 g/dl (12.0-16.0); Imm Gran Abs Auto 0.09 X10*3/uL (0.00-0.03); Imm Gran Pct Auto 1.4 % (0.0-0.4); Lymphocytes Absolute Auto 1.8 X10*3/uL (1.2-4.9); Lymphocytes Percent Auto 27.3 % (20-40); Mean Corpuscular HGB Conc 32.2 g/dl (31.0-35.0); Mean Corpuscular Hemoglobin 29.1 pg (27.0-33.0); Mean Corpuscular Volume 90.5 fL (80.0-98.0); Mean Platelet Volume 10.4 fL (9.4-12.3); Monocytes Absolute Auto 0.5 X10*3/uL (0.1-1.2); Monocytes Percent Auto 7.2 % (2-11); Neutrophils Absolute Auto 4.1 x10*3/uL (2.0-8.3); Neutrophils Percent Auto 61.8 % (45-73); Platelet Count 192 X10*3/uL (160-400); Red Cell Distribution Width 12.5 % (11.0-16.0); White Blood Count 6.7 X10*3/uL (4.8-10.8)
[2022-10-25 08:08] LABS: Ammonia 27 umol/L (13-55)
[2022-10-25 08:15] LABS: Alanine Aminotransferase 30 U/L (0-31); Albumin Level 3.9 g/dL (3.5-5.0); Alkaline Phosphatase 53 U/L (39-117); Anion Gap 19 (12-20); Aspartate Amino Transferase 33 U/L (5-31); Bilirubin Direct 0.2 mg/dL (0.0-0.5); Bilirubin Total 0.4 mg/dL (0.0-1.0); Blood Urea Nitrogen 14 mg/dL (9-16); Calcium 9.9 mg/dL (8.4-10.2); Carbon Dioxide 24 mmol/L (22-29); Chloride 104 mmol/L (96-108); Creatinine Clr Calc Pharmacy 86.6; Estimated Glomerular Filt Rate > 60; Glucose Random 111 mg/dL (60-115); Potassium 4.5 mmol/L (3.3-5.1); Sodium 142 mmol/L (135-145); Total Protein 6.7 g/dL (6.5-8.0)
[2022-10-25 08:21] VITALS: BP 130/59; PULSE 96; RESP 18; TEMP 36.2; O2SAT 99
[2022-10-25] MEDS: Metoprolol Tartrate 50 MG TABLET PO ×2 (08:23→21:25)
[2022-10-25] MEDS: SITagliptin Phosphate 100 MG TABLET PO (08:23)
[2022-10-25] MEDS: Aspirin Enteric Coated 81 MG TABLET.DR PO (08:23)
[2022-10-25] MEDS: Valsartan 320 MG TABLET PO (08:23)
[2022-10-25] MEDS: Atorvastatin Calcium 40 MG TABLET PO (08:23)
[2022-10-25] MEDS: metFORMIN HCl 1,000 MG TABLET 1000 MG PO ×2 (08:23→21:25)
[2022-10-25 08:33] LABS: Valproate 128.1 mcg/mL (50.0-100.0)
[2022-10-25 08:45] LABS: Glucose, Whole Blood 105 mg/dL (60-115)
--- NOTE | 2022-10-25 11:57 | MHC.SLORD ---
Speech Language Pathology Order Status: [employer] spoke w/ pt's RN. Per RN, pt has been tolerating regular texture diet over the weekend without any reported difficulties. Further ST intervention no longer indicated at this time as pt tolerates an unmodified diet. Please re-refer with any changes or if [employer] can be of further assistance.
--- NOTE | 2022-10-25 13:37 | HO.PSYCHPN ---
Subjective Subjective Date of Service: 10/25/22 Reason For Visit: Bipolar Diosorder Interim History: Met with patient with Afghan infection control coordinator via [employer]; discussed with team; reviewed notes Patient reports that she is not bad and better overall since coming to the unit. She still wakes up a little groggy with Seroquel and feels like it affects her gait however she wants to continue taking current dose since it is used for bipolar disorder. Patient's lab valproic acid level supratherapeutic which was discussed with patient; she understands and agrees with reason to lower dose overall. Hopeful that lowering dose will also help with morning grogginess and gait. Patient is hoping to go home as soon as possible but agrees to stay just to monitor changed in Depakote dosing. She talks about significant stress including that she is unable to visit her mother in [place] who is suffering a terminal illness. Mental Status Exam Mental Status Exam Patient Appearance: Well Grooomed and Appropriate Patient Orientation: Person and Situation Level of Consciousness: Awake and Appropriate Patient Behavior: Appropriate and Cooperative Mood Description: Anxious Affect Description: Constricted Patient Cognition Impaired: Yes Ability to Follow Directions: Good Speech Pattern: Clear Hallucinations: None Delusions: Not Present Thought Process: Intact, Goal Oriented and Linear Thought Content: positive for Intact (No SI/no HI; thinking about psychosocial stressors, discharge) Judgement: Fair Judgement and Insight: Fair Diagnostics Vital Signs (24Hr): Vital Signs - 24 hr 10/24/22 20:30 10/25/22 08:21 Temperature 97.8 F 97.2 F Pulse Rate 96 96 Respiratory Rate 18 18 Blood Pressure 147/73 H 130/59 L Pulse Oximetry 98 99 Oxygen Delivery Method Room Air Room Air BMI result Body Mass Index 31.8 Labs 10/25/22 07:40 10/25/22 07:40 Labs: Laboratory Results - last 48 hr 10/23/22 10/24/22 10/24/22 20:01 08:47 20:22 WBC RBC Hgb Hct MCV MCH MCHC RDW Plt Count MPV Immature Gran % (Auto) Neut % (Auto) Lymph % (Auto) [place] % (Auto) Eos % (Auto) Baso % (Auto) Lymph # (Auto) [place] # (Auto) Eos # (Auto) Baso # (Auto) Abs Immat Gran (auto) Absolute Neuts (auto) Absolute Nucleated RBC Nucleated RBC % (auto) Sodium Potassium Chloride Carbon Dioxide Anion Gap BUN Creatinine Estim Creat Clear Calc Estimated GFR POC Glucose 168 H 91 173 H Random Glucose Calcium Total Bilirubin Direct Bilirubin AST ALT Alkaline Phosphatase Ammonia Total Protein Albumin Valproic Acid 10/25/22 10/25/22 10/25/22 07:40 07:40 07:40 WBC 6.7 RBC 4.40 Hgb 12.8 Hct 39.8 MCV 90.5 MCH 29.1 MCHC 32.2 RDW 12.5 Plt Count 192 MPV 10.4 Immature Gran % (Auto) 1.4 H Neut % (Auto) 61.8 Lymph % (Auto) 27.3 [place] % (Auto) 7.2 Eos % (Auto) 1.8 Baso % (Auto) 0.5 Lymph # (Auto) 1.8 [place] # (Auto) 0.5 Eos # (Auto) 0.1 Baso # (Auto) 0.0 Abs Immat Gran (auto) 0.09 H Absolute Neuts (auto) 4.1 Absolute Nucleated RBC 0.000 Nucleated RBC % (auto) 0.0 Sodium 142 Potassium 4.5 Chloride 104 Carbon Dioxide 24 Anion Gap 19 BUN 14 Creatinine 0.75 Estim Creat Clear Calc 86.6 Estimated GFR > 60 POC Glucose Random Glucose 111 Calcium 9.9 Total Bilirubin 0.4 Direct Bilirubin 0.2 AST 33 H ALT 30 Alkaline Phosphatase 53 Ammonia 27 Total Protein 6.7 Albumin 3.9 Valproic Acid 10/25/22 10/25/22 08:07 08:39 WBC RBC Hgb Hct MCV MCH MCHC RDW Plt Count MPV Immature Gran % (Auto) Neut % (Auto) Lymph % (Auto) [place] % (Auto) Eos % (Auto) Baso % (Auto) Lymph # (Auto) [place] # (Auto) Eos # (Auto) Baso # (Auto) Abs Immat Gran (auto) Absolute Neuts (auto) Absolute Nucleated RBC Nucleated RBC % (auto) Sodium Potassium Chloride Carbon Dioxide Anion Gap BUN Creatinine Estim Creat Clear Calc Estimated GFR POC Glucose 105 Random Glucose Calcium Total Bilirubin Direct Bilirubin AST ALT Alkaline Phosphatase Ammonia Total Protein Albumin Valproic Acid 128.1 H* Medications Medications Current Medications Acetaminophen (Acetaminophen 325 Mg Tablet) 650 mg PO Q6H PRN PRN Reason: Headache/Pain Mild Scale (1-3) Al Hydroxide/Mg Hydroxide (Magnesium Hydrox/Alum Hydrox 30 Ml Oral.Susp) 30 ml PO Q6H PRN PRN Reason: Heartburn/Nausea Last Admin: 10/22/22 20:28 Dose: 30 ml Aspirin (Aspirin Enteric Coated 81 Mg Tablet.Dr) 81 mg PO DAILY [facility] Last Admin: 10/25/22 08:23 Dose: 81 mg Atorvastatin Calcium (Atorvastatin Calcium 40 Mg Tablet) 40 mg PO DAILY [facility] Last Admin: 10/25/22 08:23 Dose: 40 mg Divalproex Sodium (Divalproex Sodium Er 500 Mg Tab.Er.24h) 1,000 mg PO BEDTIME [facility] Glipizide (Glipizide 10 Mg Tablet) 10 mg PO DAILY [facility] Last Admin: 10/22/22 09:35 Dose: Not Given Glucose (Glucose Gel 15 Gm Gel..Gram.) 15 gm PO Q15M PRN PRN Reason: per Hypoglycemia Standing Ord. Hydroxyzine HCl (Hydroxyzine Hcl 25 Mg Tablet) 25 mg PO Q6H PRN PRN Reason: Anxiety Magnesium Hydroxide (Milk Of Magnesia 30 Ml Oral.Susp) 30 ml PO DAILY PRN PRN Reason: Constipation Last Admin: 10/21/22 20:45 Dose: 30 ml Metformin HCl (Metformin Hcl 1,000 Mg Tablet) 1,000 mg PO BID [facility] Last Admin: 10/25/22 08:23 Dose: 1,000 mg Metoprolol Tartrate (Metoprolol Tartrate 50 Mg Tablet) 50 mg PO BID [facility]; Protocol Last Admin: 10/25/22 08:23 Dose: 50 mg Quetiapine Fumarate (Quetiapine Fumarate 50 Mg Tablet) 50 mg PO Q6H PRN PRN Reason: agitation Last Admin: 10/17/22 20:17 Dose: 50 mg Quetiapine Fumarate (Quetiapine Fumarate 100 Mg Tablet) 100 mg PO BEDTIME PRN PRN Reason: Insomnia Quetiapine Fumarate (Quetiapine Fumarate 100 Mg Tablet) 100 mg PO BEDTIME [facility] Last Admin: 10/24/22 21:15 Dose: 100 mg Sitagliptin Phosphate (Sitagliptin Phosphate 100 Mg Tablet) 100 mg PO DAILY [facility] Last Admin: 10/25/22 08:23 Dose: 100 mg Valsartan (Valsartan 320 Mg Tablet) 320 mg PO DAILY [facility]; Protocol Last Admin: 10/25/22 08:23 Dose: 320 mg Allergies Allergies Allergy/AdvReac Type Severity Reaction Status Date / Time No Known Allergies Allergy Unverified 12/13/19 18:58 [No Known Allergies*] Assessment & Plan Assessment & Plan (1) Bipolar I disorder: Status: Acute Code(s): F31.9 - Bipolar disorder, unspecified (2) Acute UTI: Status: Resolved Code(s): N39.0 - Urinary tract infection, site not specified Plan Hospital course: 10/19: continue VPA 1500 mg daily, schedule all at HS. otherwise continue outpt meds. 10/20: schedule seroquel 100 at HS, PRN ativan 2 mg added for HS as well. otherwise continue current mgmt. investigate need for UTI Tx. 10/21: FSBS 34 this morning, diet changed from diabetic to regular and hospitalist consult placed. pt slept very well last night. continue current mgmt and check VPA level/labs after 5 days. discharge planning. F/U [facility]A NEG for infection. 10/22: improved FSBS, holding glipizide for now.feeling heavy and slowed. taper off of HS ativan (ordered), check labs tuesday evening including VPA level and adjust dosing accordingly on tuesday. decrease seroquel at HS if pt continues to feel too groggy in the morning. 10/23 keep same treatment no changes in her mental status, we will recheck her Depakote level tomorrow and adjust accordingly. 10/24 blood work for tomorrow morning no changes in her mental status she looks much better 10/25 Patient remains stabilized; still some anxiety and some depressive thoughts but overall feeling much better. Depakote supratherapeutic and patient agrees to remain on the unit a little longer to demonstrate tolerated bili to lower dose. Reviewed labs and blood glucose levels have remains below 200 (except for 1 reading) Repeat UA WNL PLAN: CV Q 15 minute checks Lower Depakote bedtime dose to 500 mg for tonight and then restart at 1000 mg q.h.s. (given supra therapeutic level) Otherwise continue current medication regimen including Seroquel 100 mg q.h.s. Per hospitalist PA Hold glipizide for now, continue metformin and Januvia.? If patient's glucose levels consistently rise above 200 can resume glipizide. Patient educated on: diagnosis, medication risk/benefits and medical condition Informed Consent: understands Reason for continued inpatient stay Substantial Risk for: rapid decompensation and med/psych decompensation Time Spent With Patient Time: Total time managing care of this patient today ____ minutes.
[2022-10-25 20:10] VITALS: BP 184/83; PULSE 102; RESP 18; TEMP 36.5; O2SAT 97
[2022-10-25 21:09] LABS: Glucose, Whole Blood 200 mg/dL (60-115)
[2022-10-25] MEDS: QUEtiapine Fumarate 100 MG TABLET PO (21:25)
[2022-10-25] MEDS: Divalproex Sodium ER 500 MG TAB.ER.24H PO (21:25)
[2022-10-26 08:37] LABS: Glucose, Whole Blood 115 mg/dL (60-115)
[2022-10-26 09:00] VITALS: BP 135/65; PULSE 89; RESP 16; TEMP 36.4; O2SAT 99
[2022-10-26] MEDS: Metoprolol Tartrate 50 MG TABLET PO ×2 (09:22→20:20)
[2022-10-26] MEDS: Aspirin Enteric Coated 81 MG TABLET.DR PO (09:22)
[2022-10-26] MEDS: Atorvastatin Calcium 40 MG TABLET PO (09:22)
[2022-10-26] MEDS: metFORMIN HCl 1,000 MG TABLET 1000 MG PO ×2 (09:22→20:20)
[2022-10-26] MEDS: Valsartan 320 MG TABLET PO (09:22)
[2022-10-26] MEDS: SITagliptin Phosphate 100 MG TABLET PO (09:22)
--- NOTE | 2022-10-26 12:25 | HO.PSYCHPN ---
Subjective Subjective Date of Service: 10/26/22 Reason For Visit: Bipolar Diosorder Interim History: Met with patient; discussed with team; patient's daughter present Patient in much better mood today and says that she is good with noticeably brighter affect. Patient does not feel groggy in the morning, walking fine. Patient sleeping well. Discussed treatment plan and patient agrees to stay until tomorrow, get lab work done and then discharged home to her family. She also agrees to come in on Tuesday after Depakote reaches steady state and get lab work again. Patient's daughter also agrees that patient is ready to return home. Mental Status Exam Mental Status Exam Patient Appearance: Well Grooomed and Appropriate Patient Orientation: Person, Place, Time and Situation Level of Consciousness: Awake and Appropriate Patient Behavior: Appropriate and Cooperative Mood Description: Calm Affect Description: Happy Patient Cognition Impaired: Yes Ability to Follow Directions: Good Speech Pattern: Clear Hallucinations: None Delusions: Not Present Thought Process: Intact, Goal Oriented and Linear Thought Content: positive for Intact (No SI/no HI; thinking about psychosocial stressors, discharge) Judgement: Fair Judgement and Insight: Fair Diagnostics Vital Signs (24Hr): Vital Signs - 24 hr 10/25/22 20:10 10/26/22 09:00 Temperature 97.7 F 97.5 F Pulse Rate 102 H 89 Respiratory Rate 18 16 Blood Pressure 184/83 H 135/65 Pulse Oximetry 97 99 Oxygen Delivery Method Room Air Room Air BMI result Body Mass Index 31.8 Labs 10/25/22 07:40 10/25/22 07:40 Labs: Laboratory Results - last 48 hr 10/24/22 10/25/22 10/25/22 20:22 07:40 07:40 WBC 6.7 RBC 4.40 Hgb 12.8 Hct 39.8 MCV 90.5 MCH 29.1 MCHC 32.2 RDW 12.5 Plt Count 192 MPV 10.4 Immature Gran % (Auto) 1.4 H Neut % (Auto) 61.8 Lymph % (Auto) 27.3 [place] % (Auto) 7.2 Eos % (Auto) 1.8 Baso % (Auto) 0.5 Lymph # (Auto) 1.8 [place] # (Auto) 0.5 Eos # (Auto) 0.1 Baso # (Auto) 0.0 Abs Immat Gran (auto) 0.09 H Absolute Neuts (auto) 4.1 Absolute Nucleated RBC 0.000 Nucleated RBC % (auto) 0.0 Sodium 142 Potassium 4.5 Chloride 104 Carbon Dioxide 24 Anion Gap 19 BUN 14 Creatinine 0.75 Estim Creat Clear Calc 86.6 Estimated GFR > 60 POC Glucose 173 H Random Glucose 111 Calcium 9.9 Total Bilirubin 0.4 Direct Bilirubin 0.2 AST 33 H ALT 30 Alkaline Phosphatase 53 Ammonia Total Protein 6.7 Albumin 3.9 Valproic Acid 10/25/22 10/25/22 10/25/22 07:40 08:07 08:39 WBC RBC Hgb Hct MCV MCH MCHC RDW Plt Count MPV Immature Gran % (Auto) Neut % (Auto) Lymph % (Auto) [place] % (Auto) Eos % (Auto) Baso % (Auto) Lymph # (Auto) [place] # (Auto) Eos # (Auto) Baso # (Auto) Abs Immat Gran (auto) Absolute Neuts (auto) Absolute Nucleated RBC Nucleated RBC % (auto) Sodium Potassium Chloride Carbon Dioxide Anion Gap BUN Creatinine Estim Creat Clear Calc Estimated GFR POC Glucose 105 Random Glucose Calcium Total Bilirubin Direct Bilirubin AST ALT Alkaline Phosphatase Ammonia 27 Total Protein Albumin Valproic Acid 128.1 H* 10/25/22 10/26/22 21:04 08:33 WBC RBC Hgb Hct MCV MCH MCHC RDW Plt Count MPV Immature Gran % (Auto) Neut % (Auto) Lymph % (Auto) [place] % (Auto) Eos % (Auto) Baso % (Auto) Lymph # (Auto) [place] # (Auto) Eos # (Auto) Baso # (Auto) Abs Immat Gran (auto) Absolute Neuts (auto) Absolute Nucleated RBC Nucleated RBC % (auto) Sodium Potassium Chloride Carbon Dioxide Anion Gap BUN Creatinine Estim Creat Clear Calc Estimated GFR POC Glucose 200 H 115 Random Glucose Calcium Total Bilirubin Direct Bilirubin AST ALT Alkaline Phosphatase Ammonia Total Protein Albumin Valproic Acid Medications Medications Current Medications Acetaminophen (Acetaminophen 325 Mg Tablet) 650 mg PO Q6H PRN PRN Reason: Headache/Pain Mild Scale (1-3) Al Hydroxide/Mg Hydroxide (Magnesium Hydrox/Alum Hydrox 30 Ml Oral.Susp) 30 ml PO Q6H PRN PRN Reason: Heartburn/Nausea Last Admin: 10/22/22 20:28 Dose: 30 ml Aspirin (Aspirin Enteric Coated 81 Mg Tablet.Dr) 81 mg PO DAILY [facility] Last Admin: 10/26/22 09:22 Dose: 81 mg Atorvastatin Calcium (Atorvastatin Calcium 40 Mg Tablet) 40 mg PO DAILY [facility] Last Admin: 10/26/22 09:22 Dose: 40 mg Divalproex Sodium (Divalproex Sodium Er 500 Mg Tab.Er.24h) 1,000 mg PO BEDTIME [facility] Glipizide (Glipizide 10 Mg Tablet) 10 mg PO DAILY [facility] [place] Last Admin: 10/22/22 09:35 Dose: Not Given Glucose (Glucose Gel 15 Gm Gel..Gram.) 15 gm PO Q15M PRN PRN Reason: per Hypoglycemia Standing Ord. Hydroxyzine HCl (Hydroxyzine Hcl 25 Mg Tablet) 25 mg PO Q6H PRN PRN Reason: Anxiety Magnesium Hydroxide (Milk Of Magnesia 30 Ml Oral.Susp) 30 ml PO DAILY PRN PRN Reason: Constipation Last Admin: 10/21/22 20:45 Dose: 30 ml Metformin HCl (Metformin Hcl 1,000 Mg Tablet) 1,000 mg PO BID [facility] [place] Last Admin: 10/26/22 09:22 Dose: 1,000 mg Metoprolol Tartrate (Metoprolol Tartrate 50 Mg Tablet) 50 mg PO BID [facility] [place]; Protocol Last Admin: 10/26/22 09:22 Dose: 50 mg Quetiapine Fumarate (Quetiapine Fumarate 50 Mg Tablet) 50 mg PO Q6H PRN PRN Reason: agitation Last Admin: 10/17/22 20:17 Dose: 50 mg Quetiapine Fumarate (Quetiapine Fumarate 100 Mg Tablet) 100 mg PO BEDTIME PRN PRN Reason: Insomnia Quetiapine Fumarate (Quetiapine Fumarate 100 Mg Tablet) 100 mg PO BEDTIME [facility] [place] Last Admin: 10/25/22 21:25 Dose: 100 mg Sitagliptin Phosphate (Sitagliptin Phosphate 100 Mg Tablet) 100 mg PO DAILY [facility] [place] Last Admin: 10/26/22 09:22 Dose: 100 mg Valsartan (Valsartan 320 Mg Tablet) 320 mg PO DAILY [facility] [place]; Protocol Last Admin: 10/26/22 09:22 Dose: 320 mg Allergies Allergies Allergy/AdvReac Type Severity Reaction Status Date / Time No Known Allergies Allergy Unverified 12/13/19 18:58 [No Known Allergies*] Assessment & Plan Assessment & Plan (1) Bipolar I disorder: Status: Acute Code(s): F31.9 - Bipolar disorder, unspecified (2) Acute UTI: Status: Resolved Code(s): N39.0 - Urinary tract infection, site not specified Plan Hospital course: 10/19:? continue VPA 1500 mg daily, schedule all at HS.? otherwise continue outpt meds. 10/20:? schedule seroquel 100 at HS, PRN ativan 2 mg added for HS as well.? otherwise continue current mgmt.? investigate need for UTI Tx. 10/21:? FSBS 34 this morning, diet changed from diabetic to regular and hospitalist consult placed.? pt slept very well last night.? continue current mgmt and check VPA level/labs after 5 days.? discharge planning.? F/U [facility]A NEG for infection. 10/22: improved FSBS, holding glipizide for now.feeling heavy and slowed.? taper off of HS ativan (ordered), check labs tuesday evening including VPA level and adjust dosing accordingly on tuesday.? decrease seroquel at HS if pt continues to feel too groggy in the morning. 10/23 keep same treatment no changes in her mental status, we will recheck her Depakote level tomorrow and adjust accordingly. 10/24 blood work for tomorrow morning no changes in her mental status she looks much better 10/25 Patient remains stabilized; still some anxiety and some depressive thoughts but overall feeling much better.? Depakote supratherapeutic and patient agrees to remain on the unit a little longer to demonstrate tolerated bili to lower dose. Reviewed labs and blood glucose levels have remains below 200 (except for 1 reading) Repeat UA WNL 10/26 patient's daughter present; patient wanted daughter to review medications and treatment plan with content writer. Patient in much better mood today and says that she is good with noticeably brighter affect. Patient does not feel groggy in the morning, walking fine. Patient sleeping well. Discussed treatment plan and patient agrees to stay until tomorrow, get lab work done and then discharged home to her family. She also agrees to come in on Tuesday after Depakote reaches steady state and get lab work again. Patient's daughter also agrees that patient is ready to return home. Discussed blood sugar; patient will follow up with PCP -patient appropriate to return to the community for treatment PLAN: CV Q 15 minute checks Depakote ER 1000mg qhs; will get labs in AM and then again on Tuesday Otherwise continue current medication regimen including Seroquel 100 mg q.h.s. POC <200 and Per hospitalist PA Hold glipizide for now, continue metformin and Januvia.? If patient's glucose levels consistently rise above 200 can resume glipizide. Patient educated on: diagnosis, medication risk/benefits and medical condition Guardian/Caregiver educated on: diagnosis, medication risk/benefits and medical condition Informed Consent: understands Reason for continued inpatient stay Substantial Risk for: stable for discharge Time Spent With Patient Time: Total time managing care of this patient today ____ minutes.
--- NOTE | 2022-10-26 18:17 | P.DS_ITS ---
DS: Providers Provider Date of Service: 10/27/22 Date of admission: 10/18/22 17:16 Date of discharge: 10/27/22 Primary care physician: Unknown Physician Attending physician on admission: Hero Solares Consults: 10/21/22 09:54 Consult to Hospitalist Routine Comment: FSBS 34 this morning. changed diet to reg. after. Consulting Provider: Hospitalist Reason For Exam: hypoglycemia; DM on 3 PO DM meds Attending physician on discharge: Pawel aMrtin DS: Diagnosis Discharge Diagnosis (1) Bipolar I disorder: Status: Acute (2) Acute UTI: Status: Resolved DS: Medications Discharge Medications Home Medications: Home Medications Medication Instructions Recorded Confirmed aspirin 81 mg tablet,delayed 81 mg PO DAILY 10/16/22 10/16/22 release atorvastatin 40 mg tablet 40 mg PO DAILY 10/16/22 10/16/22 glipizide 10 mg tablet 10 mg PO DAILY 10/16/22 10/16/22 metformin 1,000 mg tablet 1,000 mg PO BID 10/16/22 10/16/22 sitagliptin phosphate 100 mg 100 mg PO DAILY 10/16/22 10/16/22 tablet (Januvia) valsartan 320 mg tablet 320 mg PO DAILY 10/16/22 10/16/22 Previous Rx's Medication Instructions Recorded divalproex 500 mg tablet,extended 500 mg PO TID #33 tabs 09/22/20 release 24 hr metoprolol tartrate 50 mg tablet 50 mg PO BID #30 tabs 09/22/20 Mental Status Exam Mental Status Exam Patient Appearance: Well Grooomed and Appropriate Patient Orientation: Person, Place, Time and Situation Level of Consciousness: Awake and Appropriate Patient Behavior: Appropriate and Cooperative Mood Description: Calm Affect Description: Happy Patient Cognition Impaired: Yes Ability to Follow Directions: Good Speech Pattern: Clear Hallucinations: None Delusions: Not Present Thought Process: Intact, Goal Oriented and Linear Thought Content: positive for Intact (No SI/no HI; thinking about psychosocial stressors, discharge) Judgement: Fair Judgement and Insight: Fair Data Data Completed and Pending Completed studies during hospitalization [Text1]: 10/19/22 10/20/22 10/20/22 20:29 08:28 08:29 WBC RBC Hgb Hct MCV MCH MCHC RDW Plt Count MPV Immature Gran % (Auto) Neut % (Auto) Lymph % (Auto) [place] % (Auto) Eos % (Auto) Baso % (Auto) Lymph # (Auto) [place] # (Auto) Eos # (Auto) Baso # (Auto) Abs Immat Gran (auto) Absolute Neuts (auto) Absolute Nucleated RBC Nucleated RBC % (auto) Sodium Potassium Chloride Carbon Dioxide Anion Gap BUN Creatinine Estim Creat Clear Calc Estimated GFR POC Glucose 113 58 L* 53 L* Random Glucose Calcium Total Bilirubin Direct Bilirubin AST ALT Alkaline Phosphatase Ammonia Total Protein Albumin Urine Color Urine Appearance Urine pH Ur Specific [place] Urine Protein Urine Glucose (UA) Urine Ketones Urine Blood Urine Nitrite Ur Leukocyte Esterase Valproic Acid 10/20/22 10/20/22 10/21/22 09:44 20:26 01:10 WBC RBC Hgb Hct MCV MCH MCHC RDW Plt Count MPV Immature Gran % (Auto) Neut % (Auto) Lymph % (Auto) [place] % (Auto) Eos % (Auto) Baso % (Auto) Lymph # (Auto) [place] # (Auto) Eos # (Auto) Baso # (Auto) Abs Immat Gran (auto) Absolute Neuts (auto) Absolute Nucleated RBC Nucleated RBC % (auto) Sodium Potassium Chloride Carbon Dioxide Anion Gap BUN Creatinine Estim Creat Clear Calc Estimated GFR POC Glucose 132 H 87 Random Glucose Calcium Total Bilirubin Direct Bilirubin AST ALT Alkaline Phosphatase Ammonia Total Protein Albumin Urine Color Yellow Urine Appearance Clear Urine pH 5.5 Ur Specific [place] 1.015 Urine Protein Negative Urine Glucose (UA) Negative Urine Ketones Trace Urine Blood Negative Urine Nitrite Negative Ur Leukocyte Esterase Negative Valproic Acid 10/21/22 10/21/22 10/21/22 08:55 09:11 09:51 WBC RBC Hgb Hct MCV MCH MCHC RDW Plt Count MPV Immature Gran % (Auto) Neut % (Auto) Lymph % (Auto) [place] % (Auto) Eos % (Auto) Baso % (Auto) Lymph # (Auto) [place] # (Auto) Eos # (Auto) Baso # (Auto) Abs Immat Gran (auto) Absolute Neuts (auto) Absolute Nucleated RBC Nucleated RBC % (auto) Sodium Potassium Chloride Carbon Dioxide Anion Gap BUN Creatinine Estim Creat Clear Calc Estimated GFR POC Glucose 34 L* 56 L* 63 Random Glucose Calcium Total Bilirubin Direct Bilirubin AST ALT Alkaline Phosphatase Ammonia Total Protein Albumin Urine Color Urine Appearance Urine pH Ur Specific [place] Urine Protein Urine Glucose (UA) Urine Ketones Urine Blood Urine Nitrite Ur Leukocyte Esterase Valproic Acid 10/21/22 10/21/22 10/22/22 12:34 19:51 08:00 WBC RBC Hgb Hct MCV MCH MCHC RDW Plt Count MPV Immature Gran % (Auto) Neut % (Auto) Lymph % (Auto) [place] % (Auto) Eos % (Auto) Baso % (Auto) Lymph # (Auto) [place] # (Auto) Eos # (Auto) Baso # (Auto) Abs Immat Gran (auto) Absolute Neuts (auto) Absolute Nucleated RBC Nucleated RBC % (auto) Sodium Potassium Chloride Carbon Dioxide Anion Gap BUN Creatinine Estim Creat Clear Calc Estimated GFR POC Glucose 81 142 H 81 Random Glucose Calcium Total Bilirubin Direct Bilirubin AST ALT Alkaline Phosphatase Ammonia Total Protein Albumin Urine Color Urine Appearance Urine pH Ur Specific [place] Urine Protein Urine Glucose (UA) Urine Ketones Urine Blood Urine Nitrite Ur Leukocyte Esterase Valproic Acid 10/22/22 10/23/22 10/23/22 19:50 08:26 09:17 WBC RBC Hgb Hct MCV MCH MCHC RDW Plt Count MPV Immature Gran % (Auto) Neut % (Auto) Lymph % (Auto) [place] % (Auto) Eos % (Auto) Baso % (Auto) Lymph # (Auto) [place] # (Auto) Eos # (Auto) Baso # (Auto) Abs Immat Gran (auto) Absolute Neuts (auto) Absolute Nucleated RBC Nucleated RBC % (auto) Sodium Potassium Chloride Carbon Dioxide Anion Gap BUN Creatinine 0.78 Estim Creat Clear Calc 83.3 Estimated GFR > 60 POC Glucose 158 H 101 Random Glucose Calcium Total Bilirubin Direct Bilirubin AST ALT Alkaline Phosphatase Ammonia Total Protein Albumin Urine Color Urine Appearance Urine pH Ur Specific [place] Urine Protein Urine Glucose (UA) Urine Ketones Urine Blood Urine Nitrite Ur Leukocyte Esterase Valproic Acid 10/23/22 10/24/22 10/24/22 20:01 08:47 20:22 WBC RBC Hgb Hct MCV MCH MCHC RDW Plt Count MPV Immature Gran % (Auto) Neut % (Auto) Lymph % (Auto) [place] % (Auto) Eos % (Auto) Baso % (Auto) Lymph # (Auto) [place] # (Auto) Eos # (Auto) Baso # (Auto) Abs Immat Gran (auto) Absolute Neuts (auto) Absolute Nucleated RBC Nucleated RBC % (auto) Sodium Potassium Chloride Carbon Dioxide Anion Gap BUN Creatinine Estim Creat Clear Calc Estimated GFR POC Glucose 168 H 91 173 H Random Glucose Calcium Total Bilirubin Direct Bilirubin AST ALT Alkaline Phosphatase Ammonia Total Protein Albumin Urine Color Urine Appearance Urine pH Ur Specific [place] Urine Protein Urine Glucose (UA) Urine Ketones Urine Blood Urine Nitrite Ur Leukocyte Esterase Valproic Acid 10/25/22 10/25/22 10/25/22 07:40 07:40 07:40 WBC 6.7 RBC 4.40 Hgb 12.8 Hct 39.8 MCV 90.5 MCH 29.1 MCHC 32.2 RDW 12.5 Plt Count 192 MPV 10.4 Immature Gran % (Auto) 1.4 H Neut % (Auto) 61.8 Lymph % (Auto) 27.3 [place] % (Auto) 7.2 Eos % (Auto) 1.8 Baso % (Auto) 0.5 Lymph # (Auto) 1.8 [place] # (Auto) 0.5 Eos # (Auto) 0.1 Baso # (Auto) 0.0 Abs Immat Gran (auto) 0.09 H Absolute Neuts (auto) 4.1 Absolute Nucleated RBC 0.000 Nucleated RBC % (auto) 0.0 Sodium 142 Potassium 4.5 Chloride 104 Carbon Dioxide 24 Anion Gap 19 BUN 14 Creatinine 0.75 Estim Creat Clear Calc 86.6 Estimated GFR > 60 POC Glucose Random Glucose 111 Calcium 9.9 Total Bilirubin 0.4 Direct Bilirubin 0.2 AST 33 H ALT 30 Alkaline Phosphatase 53 Ammonia 27 Total Protein 6.7 Albumin 3.9 Urine Color Urine Appearance Urine pH Ur Specific [place] Urine Protein Urine Glucose (UA) Urine Ketones Urine Blood Urine Nitrite Ur Leukocyte Esterase Valproic Acid 10/25/22 10/25/22 10/25/22 08:07 08:39 21:04 WBC RBC Hgb Hct MCV MCH MCHC RDW Plt Count MPV Immature Gran % (Auto) Neut % (Auto) Lymph % (Auto) [place] % (Auto) Eos % (Auto) Baso % (Auto) Lymph # (Auto) [place] # (Auto) Eos # (Auto) Baso # (Auto) Abs Immat Gran (auto) Absolute Neuts (auto) Absolute Nucleated RBC Nucleated RBC % (auto) Sodium Potassium Chloride Carbon Dioxide Anion Gap BUN Creatinine Estim Creat Clear Calc Estimated GFR POC Glucose 105 200 H Random Glucose Calcium Total Bilirubin Direct Bilirubin AST ALT Alkaline Phosphatase Ammonia Total Protein Albumin Urine Color Urine Appearance Urine pH Ur Specific [place] Urine Protein Urine Glucose (UA) Urine Ketones Urine Blood Urine Nitrite Ur Leukocyte Esterase Valproic Acid 128.1 H* 10/26/22 08:33 WBC RBC Hgb Hct MCV MCH MCHC RDW Plt Count MPV Immature Gran % (Auto) Neut % (Auto) Lymph % (Auto) [place] % (Auto) Eos % (Auto) Baso % (Auto) Lymph # (Auto) [place] # (Auto) Eos # (Auto) Baso # (Auto) Abs Immat Gran (auto) Absolute Neuts (auto) Absolute Nucleated RBC Nucleated RBC % (auto) Sodium Potassium Chloride Carbon Dioxide Anion Gap BUN Creatinine Estim Creat Clear Calc Estimated GFR POC Glucose 115 Random Glucose Calcium Total Bilirubin Direct Bilirubin AST ALT Alkaline Phosphatase Ammonia Total Protein Albumin Urine Color Urine Appearance Urine pH Ur Specific [place] Urine Protein Urine Glucose (UA) Urine Ketones Urine Blood Urine Nitrite Ur Leukocyte Esterase Valproic Acid 10/16/22 20:34 Urine clean catch - Urine avery top Urine Culture - Final Strep agalactiae (Grp B) DS: Summary Hospital Course Hospital Course: pt brought to ED by her family members due to insomnia, irritability, racing thoughts, poor concentration.? she has h/o bipolar disorder and has been in such states in the past, responsive to VPA.? her family does not generally support medication use and until several days [employer] she had not been on any medication.? they found some old VPA in the house and restarted her on it in the past few days, however. seen by , OT, SW with tele-slot shift manager.? pt was calm and cooperative, linear and logical, able to provide history.? amenable to continue VPA and consolidate dosing at HS. 10/19:? continue VPA 1500 mg daily, schedule all at HS.? otherwise continue outpt meds. 10/20:? schedule seroquel 100 at HS, PRN ativan 2 mg added for HS as well.? otherwise continue current mgmt.? investigate need for UTI Tx. 10/21:? FSBS 34 this morning, diet changed from diabetic to regular and hospitalist consult placed.? pt slept very well last night.? continue current mgmt and check VPA level/labs after 5 days.? discharge planning.? F/U UA NEG for infection. 10/22: improved FSBS, holding glipizide for now.feeling heavy and slowed.? taper off of HS ativan (ordered), check labs tuesday evening including VPA level and adjust dosing accordingly on tuesday.? decrease seroquel at HS if pt continues to feel too groggy in the morning. 10/23 keep same treatment no changes in her mental status, we will recheck her Depakote level tomorrow and adjust accordingly. 10/24 blood work for tomorrow morning no changes in her mental status she looks much better 10/25 Patient remains stabilized; still some anxiety and some depressive thoughts but overall feeling much better.? Depakote supratherapeutic and patient agrees to remain on the unit a little longer to demonstrate tolerated bili to lower dose. Reviewed labs and blood glucose levels have remains below 200 (except for 1 reading); and Per hospitalist PA Hold glipizide for now, continue metformin and Januvia.? If patient's glucose levels consistently rise above 200 can resume glipizide. Repeat UA is WNL 10/26 patient's daughter present; patient wanted daughter to review medications and treatment plan with feature writer.? Patient in much better mood today and says that she is good with noticeably brighter affect.? Patient does not feel groggy in the morning, walking fine.? Patient sleeping well.? Discussed treatment plan and patient agrees to stay until tomorrow, get lab work done and then discharged home to her family.? She also agrees to come in on Tuesday after Depakote reaches steady state and get lab work again.? Patient's daughter also agrees that patient is ready to return home.? Discussed blood sugar; patient will follow up with PCP -patient appropriate to return to the community for treatment -labs reviewed on day is discharge and although not quite at steady state, Depakote level WNL; ammonia and LFTs WNL. Patient will follow up on Tuesday for 2nd lab draw Continue Depakote ER 1000mg qhs; will get labs in AM and then again on Tuesday Continue Seroquel 100 mg q.h.s. Time spent discussing smoking cessation with patient: 3 to 10 minutes Status at Discharge Functional status at discharge: independent ambulation Overall status at discharge: patient is back to baseline Time Spent with Patient Time attestation: Total time managing care of this patient today ____ minutes. Time spent: Less than 30 minutes Discharge Plan Discharge Anticipated Discharge Date/Time: 10/27/22 13:30 Patient Disposition: Home, Self-Care Discharge Diagnosis: Bipolar disorder, recurrent, most recent episode manic in full remission Referrals: [facility] [Provider Group] - 1 Week (Patient may use walk in clinic as needed for immediate medical attention. Dr. Neymar Villanueva [phone] Office will call patient with follow up appointment) Discharge Medications: New quetiapine 100 mg Tablet 100 mg PO BEDTIME 30 Days Qty: 30 1RF divalproex 500 mg Tablet Extended Release 24 Hr 1,000 mg PO BEDTIME 30 Days Qty: 60 1RF Continued metoprolol tartrate 50 mg Tablet 50 mg PO BID Qty: 30 0RF Protocol: Hold for SBP/HR < HOLD for SBP < : 90 HOLD for HR < : 60 atorvastatin 40 mg tablet 40 mg PO DAILY aspirin 81 mg tablet,delayed release (DR/EC) 81 mg PO DAILY metformin 1,000 mg tablet 1,000 mg PO BID valsartan 320 mg tablet 320 mg PO DAILY Januvia 100 mg Tablet 100 mg PO DAILY Discontinued divalproex 500 mg Tablet Extended Release 24 Hr 500 mg PO TID Qty: 33 0RF glipizide 10 mg tablet 10 mg PO DAILY Discharge Orders: Discharge Order (Routine); Ordered 10/27/22 Ordered By: Pawel Martin Diet: Regular diet Activity on Discharge: As tolerated Stand Alone Forms: Patient Portal Discharge page, Community Support Other Ambulatory Orders: Valproate (Routine) Timeframe: 20221029 Facility: [facility] - Location: Laboratory Ordered By: Pawel Martin Care Plan Goals: Maintain mood and safe behaviors Take medications as prescribed Practice coping skills Continue with outpatient providers and reach out to them as needed Health Concerns: Mood stability and behaviors Diabetes High Cholesterol Plan of Treatment: Follow up with your PCP, psychiatric provider and other outpatient providers regarding above concerns Take medications as prescribed Assessment: Risk assessment at time of discharge:? Patient was interviewed prior to discharge and found to be fully oriented and without any SI or HI. Patient has insight and demonstrates good judgment in terms of wanting to pursue treatment. Patient is not in imminent risk of harm to self or others and has a safety plan that includes presenting to the closest ER or calling 911 if feeling unsafe.? Patient has been observed closely by nursing and unit staff throughout admission ; patient has not engaged in any behaviors that suggest dangerousness to self or others and has demonstrated appropriate behaviors and impulse control
[2022-10-26 20:05] VITALS: BP 157/72; PULSE 92; RESP 18; TEMP 36.2; O2SAT 98
[2022-10-26] MEDS: QUEtiapine Fumarate 100 MG TABLET PO (20:20)
[2022-10-26] MEDS: Divalproex Sodium ER 500 MG TAB.ER.24H 1000 MG PO (20:21)
[2022-10-26 20:39] LABS: Glucose, Whole Blood 190 mg/dL (60-115)
[2022-10-27 08:42] LABS: Glucose, Whole Blood 127 mg/dL (60-115)
[2022-10-27 08:53] VITALS: BP 150/76; PULSE 90; RESP 18; TEMP 36.3; O2SAT 98
[2022-10-27] MEDS: metFORMIN HCl 1,000 MG TABLET 1000 MG PO (08:57)
[2022-10-27] MEDS: SITagliptin Phosphate 100 MG TABLET PO (08:57)
[2022-10-27] MEDS: Atorvastatin Calcium 40 MG TABLET PO (08:57)
[2022-10-27] MEDS: Valsartan 320 MG TABLET PO (08:57)
[2022-10-27] MEDS: Aspirin Enteric Coated 81 MG TABLET.DR PO (08:57)
[2022-10-27] MEDS: Metoprolol Tartrate 50 MG TABLET PO (08:57)
[2022-10-27 09:10] LABS: Ammonia 29 umol/L (13-55)
[2022-10-27 09:16] LABS: Valproate 90.6 mcg/mL (50.0-100.0)
[2022-10-27 09:25] LABS: Alanine Aminotransferase 27 U/L (0-31); Albumin Level 3.9 g/dL (3.5-5.0); Alkaline Phosphatase 56 U/L (39-117); Aspartate Amino Transferase 24 U/L (5-31); Bilirubin Direct 0.1 mg/dL (0.0-0.5); Bilirubin Total 0.4 mg/dL (0.0-1.0); Total Protein 6.9 g/dL (6.5-8.0)
== END 2022-10-27 13:48 | disposition home or self-care (01) | DRG 885 ==
LOC: HO.ED 16:31 → HO.PADLT16 10-18 17:23
PROVIDERS: Emergency Medicine Emergency Medical Services; Nurse Practitioner Family; Psychiatry & Neurology Psychiatry; Admitting Provider Clinical Nurse Specialist Psychiatric/Mental Health, Adult; Emergency Provider Emergency Medicine; Visit Provider Psychiatry & Neurology Psychiatry
DX: F31.9 Bipolar disorder, unspecified (principal); N39.0 Urinary tract infection, site not specified; E11.649 Type 2 diabetes mellitus with hypoglycemia without coma; Z20.822 Contact with and (suspected) exposure to COVID-19; Z91.148 Patient's other noncompliance with medication regimen for other reason; Z79.82 Long term (current) use of aspirin; Z79.84 Long term (current) use of oral hypoglycemic drugs; Z79.899 Other long term (current) drug therapy
CPT/HCPCS: 36415; 80048; 80053; 80061; 80076; 80164; 80307; 81001; 81003; 82140; 82565; 82607; 82746; 82947; 83036; 83735; 84439; 84443; 85025; 87086; 87147; 87635; 92610; 93005; 99285; S9485

== ENCOUNTER → 2022-10-17 21:05 | Outpatient (BNV) | payer OTHER, SELFPAY | PROVIDERS: Emergency Provider Emergency Medicine; Visit Provider Internal Medicine Cardiovascular Disease | DX: F31.9 Bipolar disorder, unspecified (principal) | CPT/HCPCS: 93010 ==

== ENCOUNTER → 2022-10-18 17:16 | Outpatient (BNV) | payer OTHER, SELFPAY | PROVIDERS: Admitting Provider Clinical Nurse Specialist Psychiatric/Mental Health, Adult; Emergency Provider Emergency Medicine; Visit Provider Psychiatry & Neurology Psychiatry | DX: F31.13 Bipolar disorder, current episode manic without psychotic features, severe (principal); N39.0 Urinary tract infection, site not specified | CPT/HCPCS: 90791; 99231; 99232; 99238 ==

== ENCOUNTER 2022-10-29 08:30 | Outpatient (REF) | payer OTHER, SELFPAY | END 2022-10-29 08:31 | disposition home or self-care (01) | LOC: HO.LAB 08:30 | PROVIDERS: Visit Provider Psychiatry & Neurology Psychiatry | DX: F31.9 Bipolar disorder, unspecified (principal); Z79.899 Other long term (current) drug therapy | CPT/HCPCS: 36415; 80164 ==